=== PATIENT | male | born 1955 | race Caucasian/White ===

== ENCOUNTER → 2022-06-25 09:36 | Outpatient (CLI) | payer MEDICARE, OTHER, SELFPAY ==
[2022-06-25 10:32] LABS: Add Manual Diff / Slide Review NO; Basophils Absolute Auto 0 /uL (0-100); Basophils Percent Auto 0.4 % (0-2); Eosinophils Absolute Auto 0 /uL (0-450); Eosinophils Percent Auto 0.4 % (2-4); Hematocrit 48.7 % (41-53); Hemoglobin 16.6 g/dL (13.5-17.5); Lymphocytes Absolute Auto 1100 /uL (1100-4500); Lymphocytes Percent Auto 9.5 % (25-40); Mean Corpuscular HGB Conc 34.1 % (30-36); Mean Corpuscular Hemoglobin 33.1 PG (26-34); Mean Corpuscular Volume 96.9 fL (80-100); Monocytes Absolute Auto 900 /uL (0-900); Monocytes Percent Auto 8.3 % (3-14); Neutrophils Absolute Auto 9200 /uL (1500-7000); Neutrophils Percent Auto 81.4 % (50-75); Platelet Count 282 X10^3/uL (150-400); Red Blood Cell Count 5.02 X10^6/uL (4.5-5.9); Red Cell Distribution Width 13.9 % (11.6-14.8); White Blood Cell Count 11.2 X10^3/uL (4.5-11.0)
[2022-06-25 10:39] LABS: Alanine Aminotransferase 42 IU/L (<50); Albumin 4.6 g/dL (3.5-5.0); Albumin Globulin Ratio 1.4 (1.0-2.8); Alkaline Phosphatase 91 U/L (38-126); Aspartate Aminotransferase 35 IU/L (17-59); BUN Creatinine Ratio 13.9 (6-22); Bilirubin Total 0.7 mg/dL (0.2-1.3); Blood Urea Nitrogen 11 mg/dL (9-20); Calcium 9.3 mg/dL (8.4-10.2); Carbon Dioxide 22 mmol/L (22-32); Chloride 103 mmol/L (98-107); Cholesterol 218 mg/dL (140-199); Estimated Glomerular Filt Rate > 60 mL/min (>60); Globulin 3.4 g/dL (1.7-4.1); Glucose 104 mg/dL (80-110); HDL Cholesterol 67 mg/dL (40-60); HEMOLYSIS < 15 (0-50); LDL Cholesterol Calculated 122 mg/dL (<100); Potassium 4.1 mmol/L (3.4-5.1); Sodium 136 mmol/L (137-145); Triglycerides 146 mg/dL (35-150)
[2022-06-25 11:22] LABS: TSH w/ Reflex to FT4 1.99 uIU/mL (0.47-4.68)
[2022-06-25 14:35] LABS: Hemoglobin A1C% w Est Avg Glu 5.5 % (4.0-6.0)
== END ==
PROVIDERS: PCP Family Medicine; Referring Provider Family Medicine; Visit Provider Family Medicine
DX: R55 Syncope and collapse (principal)
CPT/HCPCS: 36415; 80053; 80061; 83036; 84443; 85025

== ENCOUNTER → 2022-07-09 09:08 | Outpatient (CLI) | payer MEDICARE, OTHER, SELFPAY ==
--- NOTE | 2022-07-11 15:23 | PM.PFT.1 ---
Pulmonary Function Test Referral & Results Date Patient Seen: 07/09/22 Requesting provider: Lucas Duran Results: The spirometry demonstrates an FVC of 4.3 L which is 91% of predicted. The FEV1 was measured at 3.07 L which is 87% of predicted. The FEV1/FVC ratio was 71 which is 96% of predicted. Following the administration of bronchodilator there was a 31% improvement in FEF 25-75%. Lung volumes show an SVC of 4.65 L which is 97% of predicted. The diffusing capacity was measured at 23.70 which is 70% of predicted. No hemoglobin value was provided, so no correction for potential anemia could be made, if appropriate. The maximum voluntary ventilation was normal Interpretation: This study demonstrates probably normal spirometry. There is however evidence of improvement in small airway flow particularly post bronchodilator and shape a flow volume loop does support the possibility of very mild obstructive lung disease being present There is a mild reduction diffusing capacity suggesting some element of disease at the capillary alveolar level as well Clinical correlation suggested
== END ==
PROVIDERS: PCP Family Medicine; Referring Provider Family Medicine; Visit Provider Family Medicine
DX: R06.00 Dyspnea, unspecified (principal); Z72.0 Tobacco use; J98.8 Other specified respiratory disorders; Z20.822 Contact with and (suspected) exposure to COVID-19
CPT/HCPCS: 87635; 94060; 94726; 94729; C9803

== ENCOUNTER → 2022-07-09 09:08 | Outpatient (CLI) | payer MEDICARE, OTHER, SELFPAY ==
[2022-07-09 09:54] LABS: COVID19 -Nasal RAPID Negative (Negative)
== END ==
PROVIDERS: PCP Family Medicine; Referring Provider Family Medicine; Visit Provider Internal Medicine
DX: Z20.822 Contact with and (suspected) exposure to COVID-19 (principal)
CPT/HCPCS: 87635; C9803

== ENCOUNTER 2022-12-26 22:38 | Inpatient (IN) | payer MEDICARE, OTHER, SELFPAY ==
[2022-12-26] VITALS (9 sets, daily range): BP systolic 115–136; BP diastolic 73–100; PULSE 133–154; RESP 11–18; TEMP 36.6; O2SAT 87–95
--- NOTE | 2022-12-26 22:40 | DI.CT.S_ITS ---
PROCEDURE: CT HEAD/BRAIN WO CON INDICATIONS: ETOH, fall R temporal contusion TECHNIQUE: Noncontrast 4.5 mm thick angled axial sections acquired from the foramen magnum to the vertex, with coronal and sagittal reformats. For radiation dose reduction, the following was used: automated exposure control, adjustment of mA and/or kV according to patient size. COMPARISON: [facility], CT, CT FACIAL BONES WO CON, 12/26/2022, 22:46. FINDINGS: Image quality: Excellent. CSF spaces: Basal cisterns are patent. No extra-axial fluid collections. There is mild cerebral volume loss, with resultant ventricular and sulcal prominence. Brain: No intracranial hemorrhage, mass, or mass effect. There are subcortical, periventricular and deep white matter hypodensities consistent with mild chronic small vessel ischemic changes. The pedersen-white matter junction appears preserved. There is intracranial internal carotid artery atherosclerosis. Skull and face: Calvarium and visualized facial bones are intact, without suspicious lesions. Sinuses: Visualized sinuses and mastoids are clear. IMPRESSION: 1. No acute intracranial abnormality. Dictated by: Freddy Flor M.D. on 12/26/2022 at 23:22 Approved by: Freddy Flor M.D. on 12/26/2022 at 23:23
--- NOTE | 2022-12-26 22:40 | DI.CT.S_ITS ---
PROCEDURE: CT CERVICAL SPINE WO CON INDICATIONS: ETOH and fall TECHNIQUE: Noncontrast 3 mm thick sections acquired from the skull base to the T4 level. Sagittal and coronal reformats were then constructed. For radiation dose reduction, the following was used: automated exposure control, adjustment of mA and/or kV according to patient size. COMPARISON: None. FINDINGS: Image quality: There is mild motion artifact. Bones: No fractures or subluxation. There is straightening of the cervical lordosis. There is multilevel degenerative disc disease and facet joint arthropathy. Visualized superior ribs are intact. Soft tissues: Prevertebral soft tissues are normal in thickness. No paravertebral hematomas. No apical pneumothoraces. IMPRESSION: 1. No fracture or subluxation. Dictated by: Freddy Flor M.D. on 12/26/2022 at 23:23 Approved by: Freddy Flor M.D. on 12/26/2022 at 23:31
--- NOTE | 2022-12-26 22:40 | DI.CT.S_ITS ---
PROCEDURE: CT FACIAL BONES WO CON INDICATIONS: fall with nose bleed TECHNIQUE: Noncontrast 2.5 mm thick axial images acquired from the mandible through the frontal sinuses, with coronal and sagittal reformatting. For radiation dose reduction, the following was used: automated exposure control, adjustment of mA and/or kV according to patient size. COMPARISON: None. FINDINGS: Image quality: Excellent. Bones and teeth: Orbital corral are intact. Sinus corral show no fracture or deformity. Nasal bones and septum are intact. Visualized portions of the mandible demonstrate no fractures or subluxation. Zygomatic arches are intact. Pterygoid plates are intact. Visualized portions of the skull base and auditory canals are intact. Sinuses: Paranasal sinuses are aerated, without fluid levels, mucosal thickening, or mucoceles. Mastoid air cells are aerated. Soft tissues: No edema, masses, or fluid collections. The globes are intact. No enlarged lymph nodes. No soft tissue lacerations or debris. Vascular: Visualized vascular structures appear normal in the absence of contrast. Bony vascular foramina and canals are intact. IMPRESSION: 1. No facial bone fractures identified. Dictated by: Freddy Flor M.D. on 12/26/2022 at 23:31 Approved by: Freddy Flor M.D. on 12/26/2022 at 23:32
--- NOTE | 2022-12-26 22:41 | ED_ITS ---
HPI - General Adult General Chief complaint: Trauma Stated complaint: GLF- unconcious, head injury- etoh- loc Time Seen by Provider: 12/26/22 22:40 Source: family and EMS Mode of arrival: EMS Limitations: altered mental status (Intoxicated) History of Present Illness HPI narrative: Patient is a 67-year-old male who is brought in by EMS for evaluation of injuries that he sustained after an apparent fall at home. This was an unwitnessed fall but he was at home with his . His states that she heard him fall in the bathroom. She went into the bathroom and found him lying on the ground. There was a small amount of blood on the ground. He was bleeding from his nose. He has been drinking alcohol this afternoon. EMS was contacted. EMS reports that he was breathing on his room but was minimally steffany usable. And he was placed in a cervical collar in in round here in the emergency department did respond to some questioning. Here in the ER patient was responsive to stimuli. Reports no specific discomfort however the HPI and review of systems was significant limited secondary to his obvious alcohol intoxication. Related Data Home Medications Medication Instructions Recorded Confirmed fluticasone propionate [Flonase] intranasal 07/17/22 07/17/22 Previous Rx's Medication Instructions Recorded atorvastatin 20 mg tablet (Lipitor) 20 mg PO BEDTIME cholesterol #90 07/17/22 tabs Allergies Allergy/AdvReac Type Severity Reaction Status Date / Time No Known Drug Allergies Allergy Verified 12/26/22 22:48 Review of Systems Review of Systems Narrative: Very limited given the patient's intoxication status. He reports no specific symptoms Patient History Medical History Alcohol use Allergic rhinitis (~1964) Depression (~2019) Grieving Hemorrhoid (~1984) Hepatitis A (~1965) Hyperlipidemia Syncope Tobacco dependence Surgical History Anesthesia History of bunionectomy (~1974) History of rectal surgery (~1984) History of tonsillectomy and adenoidectomy (~1965) Family History Father History of heart disease Mother Alzheimer's dementia Social History Smoking Status: Current every day smoker Smoking Status: Current every day smoker Exam Initial Vital Signs Initial Vital Signs: Vital Signs Temperature 97.9 F 12/26/22 22:38 Pulse Rate 152 H 12/26/22 22:38 Respiratory Rate 18 12/26/22 22:38 Blood Pressure 136/95 H 12/26/22 22:38 Pulse Oximetry 92 12/26/22 22:38 Oxygen Delivery Method Room Air 12/26/22 22:38 Const General: disheveled HENMT Head: contusion (Right temporal region) Chest Chest: No crepitus Resp Effort & Inspection: normal respiratory effort Auscultation: clear to auscultation bilaterally Cardio Rate: tachycardic Rhythm: abnormal rhythm GI Inspection: normal to inspection Palpation: soft and No tender Back/Spine/Pelvis Cervical Spine: collar present Skin Other: Contusion on the right temporal region and also a small contusion on posterior aspect of right shoulder Neuro Other: Patient did respond to verbal stimuli. Extrem Other: No gross deformities. He does move all 4 extremities. His pelvis is stable. Scores GCS Sohail coma scale eye opening: To sound [place] coma scale verbal response: Confused S[place] coma scale motor response: Obey commands Sohail coma scale total score: 13 Course Orders Ordered: ED Orders 12/26/22 22:30 Complete Blood Count AUTO DIFF Stat Comprehensive Metabolic Panel Stat Ethanol (ETOH) Stat Lipase Stat Magnesium Stat PTT Partial Thromboplastin Daniel Stat Prothrombin Time INR Stat Troponin & CK Cardiac Panel Stat 12/26/22 22:40 CT cervical spine wo con Stat CT facial bones wo con Stat CT head/brain wo con Stat 12/26/22 22:41 EKG-12 Lead Stat 12/26/22 22:42 XR chest 1V Stat 12/26/22 23:56 CT angio abd aorta runoff Stat 12/27/22 01:29 Basic Metabolic Panel DAILY 12/27/22 01:32 Free T4, Direct Thyroxine Urgent Thyroid Stimulating Hormone Urgent 12/27/22 01:35 Consult to Dietitian, Adult Routine EC echo doppler complete Urgent 12/27/22 01:37 Education, smoking cessation ONGOING 12/27/22 01:39 NT-proBNP (BNP-Adult 18+) Urgent 12/27/22 01:43 Consult to Occupational Therapy Evaluate & Treat Consult to Physical Therapy Evaluate & Treat Consult to Physician Routine 12/27/22 01:44 MR stroke Stat 12/27/22 02:30 Urine Drug Screen, Rapid Urgent 12/27/22 05:00 Complete Blood Count AUTO DIFF DAILY Ethanol (ETOH) Routine Hemoglobin A1C% w Est Avg Glu Routine Lipid Panel Routine Troponin I Q6H 12/27/22 11:00 Troponin I Q6H 12/28/22 01:29 Basic Metabolic Panel DAILY 12/28/22 05:00 Complete Blood Count AUTO DIFF DAILY 12/29/22 01:29 Basic Metabolic Panel DAILY 12/29/22 05:00 Complete Blood Count AUTO DIFF DAILY Acetaminophen (Acetaminophen 325 Mg Tablet) 650 mg PO Q6H PRN PRN Reason: Fever/Mild Pain (1-3) Apixaban (Apixaban 5 Mg Tablet) 5 mg PO BID [facility] Last Admin: 12/27/22 02:04 Dose: 5 mg Documented By: AP Atorvastatin Calcium (Atorvastatin 20 Mg Tablet) 20 mg PO BEDTIME MULU Folic Acid (Folic Acid 1 Mg Tablet) 1 mg PO DAILY MULU Sodium Chloride (Normal Saline 0.9%) 1,000 mls @ 125 mls/hr IV CONT MULU Last Admin: 12/27/22 00:44 Dose: 125 mls/hr Documented By: AP Sodium Chloride (Normal Saline 0.9%) 1,000 mls @ 125 mls/hr IV CONT MULU Amiodarone HCl/Dextrose (Nexterone) 360 mg in 200 mls @ 33.333 mls/hr IV NOW ONE; Protocol Stop: 12/27/22 09:01 Last Admin: 12/27/22 03:24 Dose: 33.3 mls/hr, 33.3 mls/hr Documented By: AP Multivitamins (Multivitamin 1 Tablet) 1 tab PO DAILY MULU Naloxone HCl (Naloxone 0.4 Mg/Ml Vial) 0.2 mg IV Q2MIN PRN PRN Reason: Opiate Reversal Ondansetron HCl (Ondansetron 4 Mg/2 Ml Inj) 4 mg IV Q6HR PRN PRN Reason: Nausea And Vomiting Last Admin: 12/27/22 02:04 Dose: 4 mg Documented By: AP Thiamine HCl (Thiamine 100 Mg Tablet) 100 mg PO DAILY [facility] Stop: 12/30/22 09:01 Discontinued Medications Diltiazem HCl (Diltiazem 5 Mg/Ml Sdv) 10 mg IV NOW ONE Stop: 12/27/22 00:03 Last Admin: 12/27/22 00:35 Dose: 10 mg Documented By: ANTONIO Sodium Chloride (Normal Saline 0.9%) 1,000 mls @ 1,000 mls/hr IV BOLUS ONE Stop: 12/26/22 23:40 Last Infusion: 12/26/22 23:42 Dose: 0 mls/hr Documented By: Admin: 12/26/22 22:48 Dose: 1,000 mls/hr Documented By: JOHANNA DILTIAZEM (Diltiazem 125 Mg/125 Ml-D5w) 125 mg in 125 mls @ 5 mls/hr IV TITRATE MULU; Protocol Last Titration: 12/27/22 02:53 Dose: 0 mg/hr, 0 mls/hr Documented By: Admin: 12/27/22 00:43 Dose: 5 mg/hr, 5 mls/hr Documented By: ANTONIO Amiodarone HCl/Dextrose (Nexterone) 150 mg in 100 mls @ 600 mls/hr IV NOW ONE Stop: 12/27/22 03:11 Last Infusion: 12/27/22 03:36 Dose: 0 mls/hr Documented By: Admin: 12/27/22 03:08 Dose: 600 mls/hr Documented By: MANJU Metoprolol Tartrate (Metoprolol Tartrate 5 Mg/5 Ml Inj) 10 mg IV NOW ONE Stop: 12/26/22 23:13 Last Admin: 12/26/22 23:21 Dose: 10 mg Documented By: ANTONIO Vital Signs Vital signs: Vital Signs - 8 hr 12/26/22 22:38 12/26/22 22:43 12/26/22 23:00 Temperature 97.9 F Pulse Rate 152 H 153 H 147 H Respiratory Rate 18 17 11 L Blood Pressure 136/95 H 136/95 H Pulse Oximetry 92 92 93 Oxygen Delivery Method Room Air 12/26/22 23:03 12/26/22 23:03 12/26/22 23:15 Temperature Pulse Rate 151 H 154 H Respiratory Rate 14 14 Blood Pressure 134/92 H Pulse Oximetry 94 92 Oxygen Delivery Method 12/26/22 23:15 12/26/22 23:24 12/26/22 23:24 Temperature Pulse Rate 141 H Respiratory Rate 13 Blood Pressure 124/94 H 136/100 H Pulse Oximetry 95 Oxygen Delivery Method 12/26/22 23:30 12/26/22 23:30 12/26/22 23:36 Temperature Pulse Rate 141 H 134 H Respiratory Rate 11 L 15 Blood Pressure 124/81 Pulse Oximetry 92 87 L Oxygen Delivery Method 12/26/22 23:36 12/26/22 23:40 12/26/22 23:40 Temperature Pulse Rate 133 H Respiratory Rate 17 Blood Pressure 118/73 115/91 H Pulse Oximetry 92 Oxygen Delivery Method 12/27/22 00:00 12/27/22 00:01 12/27/22 00:01 Temperature Pulse Rate 140 H 145 H Respiratory Rate 20 22 Blood Pressure 98/50 L Pulse Oximetry 91 92 Oxygen Delivery Method 12/27/22 00:32 12/27/22 00:35 12/27/22 00:35 Temperature Pulse Rate 95 H 139 H Respiratory Rate 13 Blood Pressure 98/60 Pulse Oximetry 91 94 Oxygen Delivery Method 12/27/22 00:49 12/27/22 00:49 12/27/22 00:55 Temperature Pulse Rate 119 H 121 H Respiratory Rate 20 15 Blood Pressure 91/66 Pulse Oximetry 95 96 Oxygen Delivery Method 12/27/22 00:55 12/27/22 01:00 12/27/22 01:00 Temperature Pulse Rate 124 H Respiratory Rate 31 H Blood Pressure 109/74 108/68 Pulse Oximetry Oxygen Delivery Method 12/27/22 01:30 12/27/22 01:30 12/27/22 02:00 Temperature Pulse Rate 129 H Respiratory Rate 19 Blood Pressure 101/57 L 105/57 L Pulse Oximetry 90 L Oxygen Delivery Method 12/27/22 02:00 12/27/22 02:00 12/27/22 02:30 Temperature Pulse Rate 139 H Respiratory Rate 18 Blood Pressure 105/57 L 101/74 Pulse Oximetry 90 L Oxygen Delivery Method 12/27/22 02:30 Temperature Pulse Rate 142 H Respiratory Rate 17 Blood Pressure Pulse Oximetry 92 Oxygen Delivery Method Medical Decision Making Lab Data Lab results reviewed: Yes I reviewed the patient's lab results. 12/26/22 22:30 12/26/22 22:30 Labs: Lab Results 12/26/22 12/26/22 12/26/22 Range/Units 22:30 22:30 22:30 WBC 10.6 (4.5-11.0) X10^3/uL RBC 4.84 (4.5-5.9) X10^6/uL Hgb 15.9 (13.5-17.5) g/dL Hct 46.1 (41-53) % MCV 95.3 (80-100) fL MCH 32.8 (26-34) PG MCHC 34.4 (30-36) % RDW 13.9 (11.6-14.8) % Plt Count 312 (150-400) X10^3/uL Neut % (Auto) 51.0 (50-75) % Lymph % (Auto) 35.5 (25-40) % [place] % (Auto) 10.1 (3-14) % Eos % (Auto) 2.7 (2-4) % Baso % (Auto) 0.7 (0-2) % Neut # (Auto) 5400 (5960-5845) /uL Lymph # (Auto) 3800 (1823-2941) /uL [place] # (Auto) 1100 H (0-900) /uL Eos # (Auto) 300 (0-450) /uL Baso # (Auto) 100 (0-100) /uL PT 11.1 (10.1-12.7) SECONDS INR 1.0 (0.9-1.3) APTT 30 (26-36) SECONDS Sodium 138 (137-145) mmol/L Potassium 4.0 (3.4-5.1) mmol/L Chloride 103 (98-107) mmol/L Carbon Dioxide 24 (22-32) mmol/L BUN 8 L (9-20) mg/dL Creatinine 0.70 (0.66-1.25) mg/dL Estimated GFR > 60 (>60) mL/min BUN/Creatinine Ratio 11.4 (6-22) Glucose 116 H (80-110) mg/dL Calcium 8.5 (8.4-10.2) mg/dL Magnesium (1.6-2.3) mg/dL Total Bilirubin 0.4 (0.2-1.3) mg/dL AST 38 (17-59) IU/L ALT 43 (<50) IU/L Alkaline Phosphatase 85 (38-126) U/L Total Creatine Kinase (55-170) U/L CK-MB (CK-2) CK-MB (CK-2) Rel Index Troponin I (0.01-0.034) ng/mL NT-Pro-B Natriuret Pep (<125) pg/mL Total Protein 7.6 (6.3-8.2) g/dL Albumin 4.5 (3.5-5.0) g/dL Globulin 3.1 (1.7-4.1) g/dL Albumin/Globulin Ratio 1.5 (1.0-2.8) Lipase 71 (23-300) U/L TSH (0.47-4.68) uIU/mL Free T4 (0.78-2.19) ng/dL U Opiates 300ng/mL cut (Negative) Ur Oxycodone Screen (Negative) Urine Methadone Screen (Negative) Ur Barbiturates Screen (Negative) U Tricyclic Antidepress (Negative) Ur Phencyclidine Scrn (Negative) Ur Amphetamines Screen (Negative) U Methamphetamines Scrn (Negative) Ur MDMA Scrn (Ecstasy) (Negative) U Benzodiazepines Scrn (Negative) Urine Cocaine Screen (Negative) U Marijuana (THC) Screen (Negative) Ethyl Alcohol 243 H ( - 10) mg/dL 12/26/22 12/26/22 12/26/22 Range/Units 22:30 22:30 22:30 WBC (4.5-11.0) X10^3/uL RBC (4.5-5.9) X10^6/uL Hgb (13.5-17.5) g/dL Hct (41-53) % MCV (80-100) fL MCH (26-34) PG MCHC (30-36) % RDW (11.6-14.8) % Plt Count (150-400) X10^3/uL Neut % (Auto) (50-75) % Lymph % (Auto) (25-40) % [place] % (Auto) (3-14) % Eos % (Auto) (2-4) % Baso % (Auto) (0-2) % Neut # (Auto) (4784-5827) /uL Lymph # (Auto) (7961-0604) /uL [place] # (Auto) (0-900) /uL Eos # (Auto) (0-450) /uL Baso # (Auto) (0-100) /uL PT (10.1-12.7) SECONDS INR (0.9-1.3) APTT (26-36) SECONDS Sodium (137-145) mmol/L Potassium (3.4-5.1) mmol/L Chloride (98-107) mmol/L Carbon Dioxide (22-32) mmol/L BUN (9-20) mg/dL Creatinine (0.66-1.25) mg/dL Estimated GFR (>60) mL/min BUN/Creatinine Ratio (6-22) Glucose (80-110) mg/dL Calcium (8.4-10.2) mg/dL Magnesium 2.3 (1.6-2.3) mg/dL Total Bilirubin (0.2-1.3) mg/dL AST (17-59) IU/L ALT (<50) IU/L Alkaline Phosphatase (38-126) U/L Total Creatine Kinase 153 (55-170) U/L CK-MB (CK-2) TNP CK-MB (CK-2) Rel Index TNP Troponin I < 0.012 (0.01-0.034) ng/mL NT-Pro-B Natriuret Pep 24 (<125) pg/mL Total Protein (6.3-8.2) g/dL Albumin (3.5-5.0) g/dL Globulin (1.7-4.1) g/dL Albumin/Globulin Ratio (1.0-2.8) Lipase (23-300) U/L TSH 2.98 (0.47-4.68) uIU/mL Free T4 1.34 (0.78-2.19) ng/dL U Opiates 300ng/mL cut (Negative) Ur Oxycodone Screen (Negative) Urine Methadone Screen (Negative) Ur Barbiturates Screen (Negative) U Tricyclic Antidepress (Negative) Ur Phencyclidine Scrn (Negative) Ur Amphetamines Screen (Negative) U Methamphetamines Scrn (Negative) Ur MDMA Scrn (Ecstasy) (Negative) U Benzodiazepines Scrn (Negative) Urine Cocaine Screen (Negative) U Marijuana (THC) Screen (Negative) Ethyl Alcohol ( - 10) mg/dL 12/27/22 Range/Units 02:30 WBC (4.5-11.0) X10^3/uL RBC (4.5-5.9) X10^6/uL Hgb (13.5-17.5) g/dL Hct (41-53) % MCV (80-100) fL MCH (26-34) PG MCHC (30-36) % RDW (11.6-14.8) % Plt Count (150-400) X10^3/uL Neut % (Auto) (50-75) % Lymph % (Auto) (25-40) % [place] % (Auto) (3-14) % Eos % (Auto) (2-4) % Baso % (Auto) (0-2) % Neut # (Auto) (6199-5800) /uL Lymph # (Auto) (1625-0189) /uL [place] # (Auto) (0-900) /uL Eos # (Auto) (0-450) /uL Baso # (Auto) (0-100) /uL PT (10.1-12.7) SECONDS INR (0.9-1.3) APTT (26-36) SECONDS Sodium (137-145) mmol/L Potassium (3.4-5.1) mmol/L Chloride (98-107) mmol/L Carbon Dioxide (22-32) mmol/L BUN (9-20) mg/dL Creatinine (0.66-1.25) mg/dL Estimated GFR (>60) mL/min BUN/Creatinine Ratio (6-22) Glucose (80-110) mg/dL Calcium (8.4-10.2) mg/dL Magnesium (1.6-2.3) mg/dL Total Bilirubin (0.2-1.3) mg/dL AST (17-59) IU/L ALT (<50) IU/L Alkaline Phosphatase (38-126) U/L Total Creatine Kinase (55-170) U/L CK-MB (CK-2) CK-MB (CK-2) Rel Index Troponin I (0.01-0.034) ng/mL NT-Pro-B Natriuret Pep (<125) pg/mL Total Protein (6.3-8.2) g/dL Albumin (3.5-5.0) g/dL Globulin (1.7-4.1) g/dL Albumin/Globulin Ratio (1.0-2.8) Lipase (23-300) U/L TSH (0.47-4.68) uIU/mL Free T4 (0.78-2.19) ng/dL U Opiates 300ng/mL cut Negative (Negative) Ur Oxycodone Screen Negative (Negative) Urine Methadone Screen Negative (Negative) Ur Barbiturates Screen Negative (Negative) U Tricyclic Antidepress Negative (Negative) Ur Phencyclidine Scrn Negative (Negative) Ur Amphetamines Screen Negative (Negative) U Methamphetamines Scrn Negative (Negative) Ur MDMA Scrn (Ecstasy) Negative (Negative) U Benzodiazepines Scrn Negative (Negative) Urine Cocaine Screen Negative (Negative) U Marijuana (THC) Screen Positive H (Negative) Ethyl Alcohol ( - 10) mg/dL Imaging Data CT - cervical spine: Radiologist's Impression: PROCEDURE:? CT CERVICAL SPINE WO CON ? INDICATIONS:? ETOH and fall ? TECHNIQUE:? Noncontrast 3 mm thick sections acquired from the skull base to the T4 level.? Sagittal and coronal reformats were then constructed.? For radiation dose reduction, the following was used:? automated exposure control, adjustment of mA and/or kV according to patient size.? ? COMPARISON:? None. ? FINDINGS:? Image quality:? There is mild motion artifact.? ? Bones:? No fractures or subluxation.? There is straightening of the cervical lordosis.? There is multilevel degenerative disc disease and facet joint arthropathy.? Visualized superior ribs are intact.? ? Soft tissues:? Prevertebral soft tissues are normal in thickness.? No paravertebral hematomas.? No apical pneumothoraces.? ? ? IMPRESSION:? ? 1.? No fracture or subluxation. Face CT: Radiologist's Impression: PROCEDURE:? CT FACIAL BONES WO CON ? INDICATIONS:? fall with nose bleed ? TECHNIQUE:? Noncontrast 2.5 mm thick axial images acquired from the mandible through the frontal sinuses, with coronal and sagittal reformatting.? For radiation dose reduction, the following was used:? automated exposure control, adjustment of mA and/or kV according to patient size.? ? COMPARISON:? None. ? FINDINGS:? Image quality:? Excellent.? ? Bones and teeth:? Orbital corral are intact.? Sinus corral show no fracture or deformity.? Nasal bones and septum are intact.? Visualized portions of the mandible demonstrate no fractures or subluxation.? Zygomatic arches are intact.? Pterygoid plates are intact.? Visualized portions of the skull base and auditory canals are intact.? ? Sinuses:? Paranasal sinuses are aerated, without fluid levels, mucosal thickening, or mucoceles.? Mastoid air cells are aerated.? ? Soft tissues:? No edema, masses, or fluid collections.? The globes are intact.? No enlarged lymph nodes.? No soft tissue lacerations or debris.? ? Vascular:? Visualized vascular structures appear normal in the absence of contrast.? Bony vascular foramina and canals are intact.? ? IMPRESSION:? ? 1. No facial bone fractures identified.? CT scan - head: Radiologist's Impression: PROCEDURE:? CT HEAD/BRAIN WO CON ? INDICATIONS:? ETOH, fall R temporal contusion ? TECHNIQUE:? Noncontrast 4.5 mm thick angled axial sections acquired from the foramen magnum to the vertex, with coronal and sagittal reformats.? For radiation dose reduction, the following was used:? automated exposure control, adjustment of mA and/or kV according to patient size.? ? COMPARISON:? [facility], CT, CT FACIAL BONES WO CON, 12/26/2022, 22:46. ? FINDINGS:? Image quality:? Excellent.? ? CSF spaces:? Basal cisterns are patent.? No extra-axial fluid collections.? There is mild cerebral volume loss, with resultant ventricular and sulcal prominence.? ? Brain:? No intracranial hemorrhage, mass, or mass effect.? There are subcortical, periventricular and deep white matter hypodensities consistent with mild chronic small vessel ischemic changes.? The pedersen-white matter junction appears preserved.? There is intracranial internal carotid artery atherosclerosis.? ? Skull and face:? Calvarium and visualized facial bones are intact, without suspicious lesions.? ? Sinuses:? Visualized sinuses and mastoids are clear.? ? IMPRESSION:? ? 1. No acute intracranial abnormality.? Chest x-ray: Radiologist's Impression: PROCEDURE:? XR CHEST 1V ? INDICATIONS:? a fib ? TECHNIQUE:? One view of the chest was acquired.? ? COMPARISON:? [facility], CT, CT CERVICAL SPINE WO CON, 12/26/2022, 22:46 ? FINDINGS:? ? Surgical changes and devices:? None.? ? Lungs and pleura:? There is mild pulmonary edema.? No pleural effusions or pneumothorax.? ? ? Mediastinum:? Mediastinal contours appear slightly widened.? Heart size is normal.? ? Bones and chest wall:? No suspicious bony lesions.? Overlying soft tissues appear unremarkable.? ? IMPRESSION:? ? 1. Mild pulmonary edema. ? 2. Widening of the mediastinal contours is nonspecific and may reflect mediastinal fat and vascular structures.? Recommend a dedicated PA and lateral study when clinically feasible for further evaluation. CTA: Radiologist's Impression: PROCEDURE:? CT ANGIO ABD AORTA RUNOFF ? INDICATIONS:? eval for aortic pathology ? TECHNIQUE:? After the administration of intravenous contrast, 2.5 mm sections acquired from T12 to the ankles, with optional delayed image acquisition from the knees to the ankles.? 3-dimensional maximum intensity projection (MIP) coronal and sagittal reformats, and/or 3-dimensional volume rendering reformatting was then performed.? For radiation dose reduction, the following was used:? automated exposure control.? ? COMPARISON:? None. ? FINDINGS:? Image quality:? Excellent.? ? Abdominal aorta:? The visualized aorta is patent.? There is a saccular aneurysm of the infrarenal abdominal aorta measuring up to 4.0 cm in transverse dimension with eccentric left-sided mural thrombus.? The celiac, superior mesenteric, and inferior mesenteric arteries appear patent.? There are single renal arteries bilaterally which appear patent. ? Right lower extremity:? Common iliac artery:? Patent. External iliac artery:? Patent. Internal iliac artery: Patent. Common femoral artery: Patent. Deep femoral artery: Patent. Superficial femoral artery: Patent. Popliteal artery: Patent. Anterior tibial artery:? Patent. Tibioperoneal trunk: Patent. Posterior tibial artery: Patent along its course with decreased enhancement distally at the level of the ankle. Peroneal artery: Patent to the level of the ankle. ? Left lower extremity:? Common iliac artery:? Patent. External iliac artery:? Patent. Internal iliac artery: Patent. Common femoral artery: Patent. Deep femoral artery: Patent. Superficial femoral artery: Patent. Popliteal artery: Patent. Anterior tibial artery:? Patent. Tibioperoneal trunk: Patent. Posterior tibial artery: Patent. Peroneal artery: Patent to the level of the ankle. ? Extravascular tissues:? Lung bases:? There is mild dependent atelectasis.? ? Heart:? Heart is normal in size. ABDOMEN: Liver:? There is heterogeneous enhancement of the liver with relative hypoenhancement centrally.? No discrete hepatic mass. Gallbladder:? Within normal limits without calcified gallstones.? ? Biliary ducts:? No biliary ductal dilatation.? ? Pancreas:? Unremarkable.? ? Spleen:? Normal in size.? ? Adrenal Glands:? No adrenal nodules.? ? Kidneys and Ureters:? No hydronephrosis.? ? Stomach and Bowel:? Stomach, small bowel loops, and colon are normal in caliber and wall thickness.? The appendix is normal.? There is colonic diverticulosis without acu te diverticulitis. Peritoneum:? No abnormal intraperitoneal fluid.? No free air.? ? Ventral Wall: ? No hernia.? Abdominal Nodes:? No retroperitoneal or mesenteric adenopathy by size criteria.? Vessels:? Aorta and inferior vena cava are normal in size.? PELVIS: Pelvic Organs:? Unremarkable.? ? Bladder:? Unremarkable.? ? Pelvic Nodes: No enlarged lymph nodes.? Miscellaneous: No inguinal hernias are seen. ? ? LOWER EXTREMITIES: Soft tissues:? There is a small right knee joint effusion. ? Bones:? Visualized osseous structures demonstrate no suspicious focal lesions. ? IMPRESSION:? ? 1. 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 ? 2. No evidence of aortic dissection or definite acute aortic injury. ? 3. Scattered atherosclerotic plaque along the lower extremity arteries without high-grade stenosis or occlusion.? ? 4. Mild decreased enhancement demonstrated in the distal right posterior tibial artery at the level of the ankle without definite focal stenosis visualized. ECG Data Interpretation: Atrial fibrillation Ventricular rate of 149 Normal axis Normal QRS Normal QTC Nonspecific ST T wave MDM Narrative Medical decision making narrative: Contusion on the right side of his head and on his right shoulder no specific intervention here in the emergency department. CT scans and x-rays here in the emergency department are unremarkable. The CTA was ordered because of the findings from the chest x-ray of the wide mediastinum and given his fall and also his atrial fibrillation this was ordered to evaluate for aortic pathology. He does have an infrarenal aortic aneurysm but there is no signs of rupture. He is not having any abdominal pain. Patient is in AFib with RVR. According to his who is at bedside this is a new diagnoses. Unsure how long he has been in atrial fibrillation. Unsure if this was why he passed out earlier today. He was given metoprolol which potentially helped his symptoms only a small amount. He was then started on a Cardizem drip. I did discuss the case with LANA Tolbert in the night hospitalist patient does require admission to the hospital for rate control. I discussed the need for admission with the patient's who expressed understanding agreement. Patient is intoxicated. No signs of alcohol withdrawal. We will admit for further evaluation and treatment. Discharge Plan Departure Patient Disposition: Admitted As Inpatient Clinical Impression: Atrial fibrillation with RVR, Alcohol intoxication, Contusion of scalp, Contusion of right shoulder, Fall Admit Date/Time: 12/27/22 02:30 Admit Provider: Carolina Tolbert
--- NOTE | 2022-12-26 22:42 | DI.RAD.S_ITS ---
PROCEDURE: XR CHEST 1V INDICATIONS: a fib TECHNIQUE: One view of the chest was acquired. COMPARISON: [facility], CT, CT CERVICAL SPINE WO CON, 12/26/2022, 22:46 FINDINGS: Surgical changes and devices: None. Lungs and pleura: There is mild pulmonary edema. No pleural effusions or pneumothorax. Mediastinum: Mediastinal contours appear slightly widened. Heart size is normal. Bones and chest wall: No suspicious bony lesions. Overlying soft tissues appear unremarkable. IMPRESSION: 1. Mild pulmonary edema. 2. Widening of the mediastinal contours is nonspecific and may reflect mediastinal fat and vascular structures. Recommend a dedicated PA and lateral study when clinically feasible for further evaluation. Dictated by: Freddy Flor M.D. on 12/26/2022 at 23:44 Approved by: Freddy Flor M.D. on 12/26/2022 at 23:46
[2022-12-26] MEDS: SODIUM CHLORIDE 0.9% 1,000 ML 1000 ML IV (22:48)
[2022-12-26 22:49] LABS: Add Manual Diff / Slide Review NO; Basophils Absolute Auto 100 /uL (0-100); Basophils Percent Auto 0.7 % (0-2); Eosinophils Absolute Auto 300 /uL (0-450); Eosinophils Percent Auto 2.7 % (2-4); Hematocrit 46.1 % (41-53); Hemoglobin 15.9 g/dL (13.5-17.5); Lymphocytes Absolute Auto 3800 /uL (1100-4500); Lymphocytes Percent Auto 35.5 % (25-40); Mean Corpuscular HGB Conc 34.4 % (30-36); Mean Corpuscular Hemoglobin 32.8 PG (26-34); Mean Corpuscular Volume 95.3 fL (80-100); Monocytes Absolute Auto 1100 /uL (0-900); Monocytes Percent Auto 10.1 % (3-14); Neutrophils Absolute Auto 5400 /uL (1500-7000); Platelet Count 312 X10^3/uL (150-400); Red Blood Cell Count 4.84 X10^6/uL (4.5-5.9); Red Cell Distribution Width 13.9 % (11.6-14.8); White Blood Cell Count 10.6 X10^3/uL (4.5-11.0)
[2022-12-26 22:54] LABS: Prothrombin Time 11.1 SECONDS (10.1-12.7)
[2022-12-26 22:56] LABS: PTT Partial Thromboplastin Tim 30 SECONDS (26-36)
[2022-12-26 22:57] LABS: Alanine Aminotransferase 43 IU/L (<50); Albumin 4.5 g/dL (3.5-5.0); Albumin Globulin Ratio 1.5 (1.0-2.8); Alkaline Phosphatase 85 U/L (38-126); Aspartate Aminotransferase 38 IU/L (17-59); BUN Creatinine Ratio 11.4 (6-22); Bilirubin Total 0.4 mg/dL (0.2-1.3); Blood Urea Nitrogen 8 mg/dL (9-20); Calcium 8.5 mg/dL (8.4-10.2); Carbon Dioxide 24 mmol/L (22-32); Chloride 103 mmol/L (98-107); Estimated Glomerular Filt Rate > 60 mL/min (>60); Globulin 3.1 g/dL (1.7-4.1); Glucose 116 mg/dL (80-110); HEMOLYSIS < 15 (0-50); Lipase 71 U/L (23-300); Sodium 138 mmol/L (137-145); Total Protein 7.6 g/dL (6.3-8.2)
[2022-12-26 22:58] LABS: Creatine Kinase 153 U/L (55-170); Magnesium 2.3 mg/dL (1.6-2.3)
[2022-12-26 23:09] LABS: Troponin I < 0.012 ng/mL (0.01-0.034)
[2022-12-26 23:14] LABS: Ethanol (ETOH) 243 mg/dL
[2022-12-26] MEDS: METOPROLOL TARTRATE 5 MG/5 ML INJ 10 MG IV (23:21)
--- NOTE | 2022-12-26 23:39 | PC.NURSE ---
c spine cleared by DR Kaufman and cervical immobilizer removed.
--- NOTE | 2022-12-26 23:56 | DI.CT.S_ITS ---
PROCEDURE: CT ANGIO ABD AORTA RUNOFF INDICATIONS: eval for aortic pathology TECHNIQUE: After the administration of intravenous contrast, 2.5 mm sections acquired from T12 to the ankles, with optional delayed image acquisition from the knees to the ankles. 3-dimensional maximum intensity projection (MIP) coronal and sagittal reformats, and/or 3-dimensional volume rendering reformatting was then performed. For radiation dose reduction, the following was used: automated exposure control. COMPARISON: None. FINDINGS: Image quality: Excellent. Abdominal aorta: The visualized aorta is patent. There is a saccular aneurysm of the infrarenal abdominal aorta measuring up to 4.0 cm in transverse dimension with eccentric left-sided mural thrombus. The celiac, superior mesenteric, and inferior mesenteric arteries appear patent. There are single renal arteries bilaterally which appear patent. Right lower extremity: Common iliac artery: Patent. External iliac artery: Patent. Internal iliac artery: Patent. Common femoral artery: Patent. Deep femoral artery: Patent. Superficial femoral artery: Patent. Popliteal artery: Patent. Anterior tibial artery: Patent. Tibioperoneal trunk: Patent. Posterior tibial artery: Patent along its course with decreased enhancement distally at the level of the ankle. Peroneal artery: Patent to the level of the ankle. Left lower extremity: Common iliac artery: Patent. External iliac artery: Patent. Internal iliac artery: Patent. Common femoral artery: Patent. Deep femoral artery: Patent. Superficial femoral artery: Patent. Popliteal artery: Patent. Anterior tibial artery: Patent. Tibioperoneal trunk: Patent. Posterior tibial artery: Patent. Peroneal artery: Patent to the level of the ankle. Extravascular tissues: Lung bases: There is mild dependent atelectasis. Heart: Heart is normal in size. ABDOMEN: Liver: There is heterogeneous enhancement of the liver with relative hypoenhancement centrally. No discrete hepatic mass. Gallbladder: Within normal limits without calcified gallstones. Biliary ducts: No biliary ductal dilatation. Pancreas: Unremarkable. Spleen: Normal in size. Adrenal Glands: No adrenal nodules. Kidneys and Ureters: No hydronephrosis. Stomach and Bowel: Stomach, small bowel loops, and colon are normal in caliber and wall thickness. The appendix is normal. There is colonic diverticulosis without acute diverticulitis. Peritoneum: No abnormal intraperitoneal fluid. No free air. Ventral Wall: No hernia. Abdominal Nodes: No retroperitoneal or mesenteric adenopathy by size criteria. Vessels: Aorta and inferior vena cava are normal in size. PELVIS: Pelvic Organs: Unremarkable. Bladder: Unremarkable. Pelvic Nodes: No enlarged lymph nodes. Miscellaneous: No inguinal hernias are seen. LOWER EXTREMITIES: Soft tissues: There is a small right knee joint effusion. Bones: Visualized osseous structures demonstrate no suspicious focal lesions. IMPRESSION: 1. 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 2. No evidence of aortic dissection or definite acute aortic injury. 3. Scattered atherosclerotic plaque along the lower extremity arteries without high-grade stenosis or occlusion. 4. Mild decreased enhancement demonstrated in the distal right posterior tibial artery at the level of the ankle without definite focal stenosis visualized. Dictated by: Freddy Flor M.D. on 12/27/2022 at 1:08 Approved by: Freddy Flor M.D. on 12/27/2022 at 1:15
[2022-12-27] VITALS (37 sets, daily range): BP systolic 91–167; BP diastolic 50–91; PULSE 61–150; RESP 13–31; TEMP 36.6–37.3; O2SAT 90–96; BMI 27.3
[2022-12-27] MEDS: dilTIAZem 5 MG/ML SDV 10 MG IV (00:35)
[2022-12-27] MEDS: DILTIAZEM 125 MG/125 ML PIGGYBACK IV ×2 (00:43→05:45)
[2022-12-27] MEDS: SODIUM CHLORIDE 0.9% 1,000 ML 125 ML IV (00:44)
--- NOTE | 2022-12-27 00:57 | PC.NURSE ---
His took his pants,jacket and wallet home.His cell phone and glasses are with him.
--- NOTE | 2022-12-27 01:35 | DI.ECHO.S_ITS ---
[facility]---------+ [facility] +---------+ : : [address] : : : : [id number] : : : : Phone: [phone]+ Echocardiogram Report + + :Name: MAXIM MCINTYRE Study Date: 12/27/2022 Height: 72 in : :[facility] ReadingLocation: Weight: 202 lb : : Gender: Male BSA: 2.1 m2 : :: 1955 Age: 67 yrs BP: 107/60 mmHg: :Reason For Study: ATRIAL FIBRILLATION : :Ordering Physician: KING, : :LIZA Performed By: Eduarda Quintero : :Referring: LIZA MALIK : + + Interpretation Summary The ejection fraction is estimated to be 60-65%. Diastolic parameters suggest probable normal left ventricular diastolic function and normal filling pressures. The right ventricle is normal in size and function. The right ventricular systolic pressure is estimated to be at least 24 mmHg based on an estimated right atrial pressure of 3 mm Hg. The left atrial size is normal. Right atrial size is normal. No significant valvular abnormality. Procedure: A two-dimensional transthoracic echocardiogram with color flow and Doppler was performed. The study quality was technically adequate. There is no prior echocardiogram noted for this patient. The heart rate ranged between 56-82 bpm during the study. Left Ventricle: The left ventricle is normal in size and wall thickness. The ejection fraction is estimated to be 60-65%. There are no obvious focal wall motion abnormalities noted but poor endocardial definition reduces the sensitivity for the detection of such. Diastolic parameters suggest probable normal left ventricular diastolic function and normal filling pressures. Right Ventricle: The right ventricle is normal in size and function. Atria: The left atrial size is normal. Right atrial size is normal. There is no Doppler evidence for an interatrial shunt. Mitral Valve: The mitral valve is normal in structure and function. There is mild mitral regurgitation. Aortic Valve: The aortic valve is trileaflet. The aortic valve opens well. There is no aortic valve stenosis. No aortic regurgitation is present. Tricuspid Valve: The tricuspid valve is normal in structure and function. There is mild tricuspid regurgitation. The right ventricular systolic pressure is estimated to be at least 24 mmHg based on an estimated right atrial pressure of 3 mm Hg. Pulmonic Valve: The pulmonic valve is not well seen, but is grossly normal. There is a trace or physiologic amount of pulmonic regurgitation. Great Vessels: The aortic root is normal size. The dimensions of the ascending aorta are normal. The IVC is of normal diameter and collapses greater than 50% with a sniff. This suggests a low right atrial pressure of 3 mm Hg. Pericardium/ Pleura There is no pericardial effusion. There is no pleural effusion. MMode/2D Measurements & Calculations LVIDd: 5.2 cm LVOT diam: 2.2 cm LVIDs: 3.5 cm Ao root diam: 3.4 cm FS: 33.3 % asc Aorta Diam: 3.8 cm EPSS: 0.85 cm Ao Arch Diam (Prox Trans): 4.0 cm IVSd: 1.0 cm LVPWd: 0.74 cm LV aleman. diameter/BSA (cm/m^2): 2.4 LV sys. diameter/BSA (cm/m^2): 1.6 LA A2 area: 18.3 cm2 RA long axis: 5.7 cm LA A4 area: 15.0 cm2 RA area: 18.4 cm2 LA length (vol): 5.0 cm RA vol: 50.2 ml LA vol: 46.3 ml RA : 23.5 ml/m2 LA vol index: 21.6 ml/m2 IVC diam: 1.3 cm RVD1 (basal): 3.4 cm RVD2 (mid): 3.2 cm TAPSE: 2.2 cm Doppler Measurements & Calculations Ao V2 max: 149.4 cm/sec LVOT Max Chacorta: 102.4 cm/sec Ao V2 mean: 104.5 cm/sec LV V1 max P.2 mmHg Ao max P.9 mmHg LV V1 VTI: 19.6 cm Ao mean P.9 mmHg JAMES(I,D): 2.7 cm2 Ao V2 VTI: 27.5 cm JAMES(V,D): 2.6 cm2 sev ratio: 0.71 JAMES indexed to BSA (cm^2/m^2): 1.2 MV E max chacorta: 59.8 cm/sec TR max chacorta: 228.8 cm/sec MV A max chacorta: 66.2 cm/sec TR max P.9 mmHg MV E/A: 0.90 PA V2 max: 108.0 cm/sec Med Peak E' Chacorta: 6.2 cm/sec PA V2 mean: 70.4 cm/sec E/E' med: 9.6 PA mean P.2 mmHg Lat Peak E' Chacorta: 8.1 cm/sec PA pr(Accel): 20.8 mmHg E/E' lat: 7.4 E/e' average: 8.5 MV dec time: 0.28 sec [facility] 73.4 ml Reading Physician:KENA
--- NOTE | 2022-12-27 01:44 | DI.MRI.S_ITS ---
PROCEDURE: MR STROKE Pre- and post-contrast brain MRI, non-contrast brain MR angiogram, pre- and postcontrast neck MR angiogram INDICATIONS: VTH-AZE-Ypbc injury TECHNIQUE: Brain: Noncontrast axial T1 spin echo, axial T2 fast spin echo, sagittal and axial FLAIR, coronal T2 fast spin echo, axial gradient echo, axial diffusion and ADC through the brain. After the administration of contrast, axial 3D VIBE of the cranial vasculature and brain. Brain MRA: Non-contrast 3-D time of flight MR angiogram, with multiple uxservh-xphyudgtz-owizdvwmib (MIP) reformats performed. Neck MRA: Axial and sagittal TruFISP through the neck. Coronal dynamic MR angiogram during administration of contrast in the arterial and venous phases, with 3-dimenstional kmfkwir-expqjbeli-mrtyrozgkd (MIP) reformats constructed from subtraction images. COMPARISON: [facility], CT, CT HEAD/BRAIN WO CON, 12/26/2022, 22:46. FINDINGS: Image quality: Excellent. BRAIN: CSF spaces: Ventricles are normal in size and shape. Basal cisterns are patent. No extra-axial fluid collections. Brain: No intracranial bleeds or mass effects. Martinez-white matter interface is normal. Diffusion weighted images show no acute ischemic insults. There is focal left temporal contusion with affected parenchyma measuring approximately 3.5 x 2.4 cm on axial FLAIR image 8 of series 16. There is minimal associated extra-axial hemorrhage, likely in the subarachnoid in may be also a thin rim of subdural hemorrhage, as well. There is associated edema in this area. Age-related volume loss and mild small vessel ischemic change. Normal intravascular flow voids are present. No abnormal intracranial enhancement. Skull and face: Calvarial marrow signal is normal. Orbits appear normal. Sinuses: Sinuses and mastoids are clear. BRAIN MR ANGIOGRAM: Anterior circulation: Intracranial internal carotid arteries are normal in size and enhancement. The flow within the paired anterior cerebral arteries is normal and symmetric. The flow within the middle cerebral arteries is normal and symmetric. The anterior communicating artery is seen. No stenoses, occlusions, or aneurysms. Posterior circulation: The distal right vertebral artery is diminutive. The distal left vertebral artery is widely patent. They join to form a normal caliber basilar artery. The flow within the posterior cerebral arteries is normal and symmetric. No stenoses, occlusions, or aneurysms. NECK MR ANGIOGRAM: Carotids: Great vessels demonstrate a conventional anatomy as they arise from the aortic arch. The origins of the common carotid arteries appear patent. The calibers and courses of both common carotid arteries are normal. The bifurcation regions appear normal bilaterally. The internal carotid arteries demonstrate normal course and caliber. Posterior circulation: The right vertebral artery is diffusely diminutive, normal variant. The left vertebral artery is widely patent and is dominant. They join to form a normal appearing basilar artery. Miscellaneous: Subclavian arteries appear patent. Pre-contrast images through the neck show no soft tissue abnormalities. IMPRESSION: BRAIN MRI: 1. Focal left temporal contusion with associated subarachnoid blood and probable very minimal subdural hematoma. 2. No evidence of acute ischemic stroke. Age-related volume loss and mild small vessel ischemic change. BRAIN MR ANGIOGRAM: Unremarkable NECK MR ANGIOGRAM: Patent carotids. Dictated by: Robb Ashley M.D. on 12/27/2022 at 11:03 Approved by: Robb Ashley M.D. on 12/27/2022 at 11:20
--- NOTE | 2022-12-27 01:48 | P.HP_ITS ---
History of Present Illness History of Present Illness Date Patient Seen: 12/27/22 Time Patient Seen: 01:48 Chief complaint: Afib RVR, GLF-LOC, ETOH Narrative: Ibrahima Solorzano is a 67-year-old male with a medical history of alcohol abuse, hyperlipidemia, tobacco abuse who had a ground level fall, with head injury at home was found by his unconscious, EMS was called patient initially found unarousable, patient was intoxicated in atrial fibrillation. In ED patient was arousable was able to answer some questions denies history of atrial fibrillation. Patient ETOH of 243, and in AFib with RVR rate 130-150, initially hemodynamically stable BP 136/95, 115/91. Patient was initially given metoprolol push without resolution, Dilt and was placed on diltiazem drip. On admit patient denies chest pain, shortness in breath, headache, changes in vision, difficulty swallowing, speech impairment, weakness, numbness, tingling, difficulty with ambulation, fever, body aches, chills, cough, recent exposure to illness, abdominal pain, nausea, vomiting, urinary incontinence/retention, dysuria, frequency, urgency, hematuria, bowel changes, constipation, incontinence, melena, rashes, recent changes to medication or illness. On admit hypotensive 98/50, 90/60, patient is somnolent, arousable, able to answer questions some questions but a lot of mumbling still significantly intoxicated, protecting airway but O2 saturations do drop into the 80s when he falls back asleep. Patient's CBC, CMP, liver panel, troponin are all WNL. ETOH 243. Chest x-ray mild pulmonary edema, widening midsternal contours. Head CT negative, facial CT negative, C-spine negative, chest CT showed 4 cm abdominal aneurysm. Patient admitted for ground level fall with head injury and loss of consciousness, atrial fibrillation with RVR, ETOH intoxication, and abdominal aneurysm. [facility] Medical History Alcohol use Allergic rhinitis (~1964) Depression (~2019) Grieving Hemorrhoid (~1984) Hepatitis A (~1965) Hyperlipidemia Syncope Tobacco dependence Surgical History Anesthesia History of bunionectomy (~1974) History of rectal surgery (~1984) History of tonsillectomy and adenoidectomy (~1965) Family History Father History of heart disease Mother Alzheimer's dementia Social History Smoking Status: Current every day smoker Meds Home Medications and Allergies Home Medications Medication Instructions Recorded Confirmed Type atorvastatin 20 mg tablet (Lipitor) 20 mg PO BEDTIME cholesterol #90 07/17/22 07/17/22 Rx tabs fluticasone propionate [Flonase] intranasal 07/17/22 07/17/22 History Allergies Allergy/AdvReac Type Severity Reaction Status Date / Time No Known Drug Allergies Allergy Verified 12/26/22 22:48 Review of Systems Review of Systems Narrative: All 12 point systems reviewed with the patient and are negative except otherwise documented. Exam Vital Signs (past 8 hours): - 12/26/22 22:38 12/26/22 22:43 12/26/22 23:00 Temperature 97.9 F Pulse Rate 152 H 153 H 147 H Respiratory Rate 18 17 11 L Blood Pressure 136/95 H 136/95 H Pulse Oximetry 92 92 93 Oxygen Delivery Method Room Air 12/26/22 23:03 12/26/22 23:03 12/26/22 23:15 Temperature Pulse Rate 151 H 154 H Respiratory Rate 14 14 Blood Pressure 134/92 H Pulse Oximetry 94 92 Oxygen Delivery Method 12/26/22 23:15 12/26/22 23:24 12/26/22 23:24 Temperature Pulse Rate 141 H Respiratory Rate 13 Blood Pressure 124/94 H 136/100 H Pulse Oximetry 95 Oxygen Delivery Method 12/26/22 23:30 12/26/22 23:30 12/26/22 23:36 Temperature Pulse Rate 141 H 134 H Respiratory Rate 11 L 15 Blood Pressure 124/81 Pulse Oximetry 92 87 L Oxygen Delivery Method 12/26/22 23:36 12/26/22 23:40 12/26/22 23:40 Temperature Pulse Rate 133 H Respiratory Rate 17 Blood Pressure 118/73 115/91 H Pulse Oximetry 92 Oxygen Delivery Method 12/27/22 00:00 12/27/22 00:01 12/27/22 00:01 Temperature Pulse Rate 140 H 145 H Respiratory Rate 20 22 Blood Pressure 98/50 L Pulse Oximetry 91 92 Oxygen Delivery Method 12/27/22 00:32 12/27/22 00:35 12/27/22 00:35 Temperature Pulse Rate 95 H 139 H Respiratory Rate 13 Blood Pressure 98/60 Pulse Oximetry 91 94 Oxygen Delivery Method 12/27/22 00:49 12/27/22 00:49 12/27/22 00:55 Temperature Pulse Rate 119 H 121 H Respiratory Rate 20 15 Blood Pressure 91/66 Pulse Oximetry 95 96 Oxygen Delivery Method 12/27/22 00:55 12/27/22 01:00 12/27/22 01:00 Temperature Pulse Rate 124 H Respiratory Rate 31 H Blood Pressure 109/74 108/68 Pulse Oximetry Oxygen Delivery Method 12/27/22 01:30 12/27/22 01:30 Temperature Pulse Rate 129 H Respiratory Rate 19 Blood Pressure 101/57 L Pulse Oximetry 90 L Oxygen Delivery Method Oxygen Delivery Method Room Air Narrative Exam Narrative: General: Patient is a well-developed, well-nourished male, somnolent appears still intoxicated, in no distress at this time. HEENT: Normocephalic, abrasion to left side of scalp, extraocular muscles intact, oral pharynx is clear and mucous membranes are moist. Neck is supple and symmetric, trachea is midline, no adenopathy, no thyroid enlargement, nontender, no masses palpated. Negative for JVD Chest: Normal AP diameter and contour without kyphoscoliosis, no nasal flaring, retractions, or tachypneic labored breathing Lungs: Auscultation of all lung figueroa are clear without adventitious sounds, wheezes, rhonchi, or rales. Cardio: Tachycardic irregular rate and atrial fibrillation rhythm without murmur, rubs, or gallops, no carotid bruit, no cardiac pulsations present. Abdomen: Soft nontender, negative for organomegaly, or masses. Bowel sounds are present in all 4 quadrants without guarding or rebound, no CVA tenderness. Musculoskeletal: Muscle strength and tone appear equal within normal limits, no deformity, crepitus, effusions, cyanosis, clubbing or edema present. Full range of motion intact radial and pedal pulses are normal. Skin: Warm dry and intact without rashes, ulcerations or petechiae. Noted abrasion to right shoulder Neuro: Alert and orientated to self, somnolent, continues to mumble and is confused as to where he is likely secondary to intoxication, moves all extremities, sensation to touch intact, no gross deficits noted of cranial nerves. Psych: Patient has a poorly kempt appearance, somnolent, intoxicated. Objective Labs 12/26/22 22:30 12/26/22 22:30 Labs: Laboratory Results - last 24 hr 12/26/22 12/26/22 12/26/22 22:30 22:30 22:30 WBC 10.6 RBC 4.84 Hgb 15.9 Hct 46.1 MCV 95.3 MCH 32.8 MCHC 34.4 RDW 13.9 Plt Count 312 Neut % (Auto) 51.0 Lymph % (Auto) 35.5 [place] % (Auto) 10.1 Eos % (Auto) 2.7 Baso % (Auto) 0.7 Neut # (Auto) 5400 Lymph # (Auto) 3800 [place] # (Auto) 1100 H Eos # (Auto) 300 Baso # (Auto) 100 PT 11.1 INR 1.0 APTT 30 Sodium 138 Potassium 4.0 Chloride 103 Carbon Dioxide 24 BUN 8 L Creatinine 0.70 Estimated GFR > 60 BUN/Creatinine Ratio 11.4 Glucose 116 H Calcium 8.5 Magnesium Total Bilirubin 0.4 AST 38 ALT 43 Alkaline Phosphatase 85 Total Creatine Kinase CK-MB (CK-2) CK-MB (CK-2) Rel Index Troponin I Total Protein 7.6 Albumin 4.5 Globulin 3.1 Albumin/Globulin Ratio 1.5 Lipase 71 Ethyl Alcohol 243 H 12/26/22 22:30 WBC RBC Hgb Hct MCV MCH MCHC RDW Plt Count Neut % (Auto) Lymph % (Auto) [place] % (Auto) Eos % (Auto) Baso % (Auto) Neut # (Auto) Lymph # (Auto) [place] # (Auto) Eos # (Auto) Baso # (Auto) PT INR APTT Sodium Potassium Chloride Carbon Dioxide BUN Creatinine Estimated GFR BUN/Creatinine Ratio Glucose Calcium Magnesium 2.3 Total Bilirubin AST ALT Alkaline Phosphatase Total Creatine Kinase 153 CK-MB (CK-2) TNP CK-MB (CK-2) Rel Index TNP Troponin I < 0.012 Total Protein Albumin Globulin Albumin/Globulin Ratio Lipase Ethyl Alcohol Assessment & Plan Assessment & Plan narrative: Ibrahima Solorzano is a 67-year-old male with a medical history of alcohol abuse, hyperlipidemia, tobacco abuse who had a ground level fall, with head injury at home was found by his unconscious, brought into ED via EMS found to be intoxicated and in atrial fibrillation RVR . Patient admitted for ground level fall with head injury and loss of consciousness, atrial fibrillation with RVR, ETOH intoxication, and abdominal aneurysm. Patient requires IV hydration, management of new onset AFib with RVR heart rates continued to be in the 130s to 140s, monitor for alcohol withdrawal and management, MRI to rule out stroke patient is currently boarding in ED and will be moved to the ICU tomorrow. Ground level fall, with head injury and LOC, acute, present on admission * Unclear as to cause of fall and LOC-possibily intoxication, AFib with RVR, TIA/stroke or a combination. * Head CT was negative for acute intracranial process * MRI ordered for tomorrow * Neuro checks, seizure precautions, continue Lipitor * A1c, TSH/T4, Tox screen Atrial fibrillation with RVR, new onset acute, present on admission * ED:136/95, 115/91, rate 130-150 * admit: 98/50, 90/60, rate 130-140's unresponsive to metoprolol IV, and Cardizem drip, patient changed to amiodarone * Goal HR: <110, O2 sat>90% * Initiated Eliquis * BNP * Echo ordered for tomorrow Alcohol intoxication, chronic alcohol abuse, acute on chronic, present on admission * Admit ETOH 243-still somnolent heavily intoxicated. * Dietary consult * Vitamin-A, folic acid, thiamine ordered * Reviewed last PCP office visit note patient was reported to have decreased alcohol intake by 40%-07/2022 * [facility] protocol, may consider Precedex drip depending on onset and severity of withdrawal symptoms. 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 Mild decreased enhancement demonstrated in the distal right posterior tibial artery at the level of the ankle without definite focal stenosis visualized.? * Consult order placed for Dr. Diaz general surgery to review Pulmonary edema, mild, present on admission * Chest x-ray mild pulmonary edema Hyperlipidemia, chronic, present on admission * Continue Lipitor Tobacco abuse, chronic, present on admission * Patient education regarding tobacco cessation Code status:Full Surrogate decision maker: Mary Greene DVT/VTE prophylaxis: Eliquis and SCDs Disposition: Patient requiring hospitalization for the management of new onset atrial fibrillation with RVR, alcohol intoxication, and abdominal aneurysm expected length of stay to exceed 2 midnights. I have utilized all available immediate resources to obtain, update, or review the patient's current medications. I confirmed that the patient's advanced care plan is present, Code status is documented and/or surrogate decision maker is listed in the patient's medical record. I have personally reviewed patient's chart notes from PCP, specialists, diagnostic imaging, and laboratory results.
[2022-12-27] MEDS: ONDANSETRON 4 MG/2 ML INJ IV (02:04)
[2022-12-27] MEDS: APIXABAN 5 MG TABLET PO (02:04)
--- NOTE | 2022-12-27 02:14 | PC.NURSE ---
cardizem drip has been titrated per protocol and is currently infusing at 15mg per hour.
[2022-12-27 02:15] LABS: NT-proBNP (BNP-Adult 18+) 24 pg/mL (<125)
[2022-12-27 02:24] LABS: Free T4, Direct Thyroxine 1.34 ng/dL (0.78-2.19)
[2022-12-27 02:38] LABS: Thyroid Stimulating Hormone 2.98 uIU/mL (0.47-4.68)
[2022-12-27 02:44] LABS: UR Morphine/Opiate cutoff 300 Negative (Negative); Ur Creatinine Normal (Normal); Ur Specific Gravity Normal (Normal); Urine Amphetamines Negative (Negative); Urine Barbiturates Negative (Negative); Urine Benzodiazepines Negative (Negative); Urine Cocaine Negative (Negative); Urine MDMA Negative (Negative); Urine Methadone Negative (Negative); Urine Methamphetamines Negative (Negative); Urine Oxycodone Negative (Negative); Urine Phencyclidine Negative (Negative); Urine Tetrahydrocannabinol Positive (Negative); Urine Tricyclic Antidepressant Negative (Negative); Urine pH Normal (Normal)
[2022-12-27] MEDS: AMIODARONE 150 MG/100 ML PIGGYBACK 600 MG IV (03:08)
[2022-12-27] MEDS: AMIODARONE 360 MG/200 ML PIGGYBACK 33.3 MG IV (03:24)
--- NOTE | 2022-12-27 04:44 | PC.NURSE ---
Iraida GALVEZ notified of patients rapid a-fib continuing.
[2022-12-27 05:31] LABS: Add Manual Diff / Slide Review NO; Basophils Absolute Auto 100 /uL (0-100); Basophils Percent Auto 0.4 % (0-2); Eosinophils Absolute Auto 0 /uL (0-450); Eosinophils Percent Auto 0.1 % (2-4); Hematocrit 45.7 % (41-53); Hemoglobin 15.6 g/dL (13.5-17.5); Lymphocytes Absolute Auto 1200 /uL (1100-4500); Lymphocytes Percent Auto 6.9 % (25-40); Mean Corpuscular HGB Conc 34.2 % (30-36); Mean Corpuscular Hemoglobin 32.2 PG (26-34); Mean Corpuscular Volume 94.1 fL (80-100); Monocytes Absolute Auto 1000 /uL (0-900); Monocytes Percent Auto 5.6 % (3-14); Neutrophils Absolute Auto 14900 /uL (1500-7000); Platelet Count 291 X10^3/uL (150-400); Red Blood Cell Count 4.86 X10^6/uL (4.5-5.9); Red Cell Distribution Width 13.9 % (11.6-14.8); White Blood Cell Count 17.1 X10^3/uL (4.5-11.0)
[2022-12-27 05:32] LABS: BUN Creatinine Ratio 11.9 (6-22); Blood Urea Nitrogen 7 mg/dL (9-20); Calcium 8.4 mg/dL (8.4-10.2); Carbon Dioxide 22 mmol/L (22-32); Chloride 104 mmol/L (98-107); Cholesterol 143 mg/dL (140-199); Estimated Glomerular Filt Rate > 60 mL/min (>60); Ethanol (ETOH) 106 mg/dL; Glucose 119 mg/dL (80-110); HDL Cholesterol 64 mg/dL (40-60); HEMOLYSIS 25 (0-50); LDL Cholesterol Calculated 55 mg/dL (<100); Potassium 4.2 mmol/L (3.4-5.1); Sodium 137 mmol/L (137-145); Triglycerides 121 mg/dL (35-150)
[2022-12-27] MEDS: HEPARIN 5,000 UNIT/ML VIAL 5000 UNIT IV (05:34)
[2022-12-27] MEDS: HEPARIN DRIP 25,000 UNIT/500 ML IV.SOLN 20 UNIT IV (05:35)
[2022-12-27 05:44] LABS: Troponin I 0.018 ng/mL (0.01-0.034)
--- NOTE | 2022-12-27 06:06 | PC.NURSE ---
just a few minutes after the diltiazem gtt was started at 5mg per hour,he converted to sinus rhythm.Carolina GALVEZ gave verbal order to stop the dilt. gtt.An ekg was obtained and given to her.
[2022-12-27 07:38] LABS: Magnesium 2.1 mg/dL (1.6-2.3)
[2022-12-27] MEDS: FOLIC ACID 1 MG TABLET PO (09:17)
[2022-12-27] MEDS: MULTIVITAMIN 1 TABLET 1 TAB PO (09:17)
[2022-12-27] MEDS: THIAMINE 100 MG TABLET PO (09:18)
--- NOTE | 2022-12-27 10:42 | DIET.CONS ---
Dietary Consultation Note Admission Date: 12/27/2022 02:30 Assessment: 67y M admitted after GLF resulting in LOC and etoh intoxication with new afib referred to nutrition for ETOH. Pt reported to PCP in 06/25 etoh consumption of 8 beers daily x1y due to grief of of daughter. Counselled by PCP for cessation. F/u pt stated he had reduced by 40%. Pt started on statin at that time, lipid panel now WNL, pts liver enzymes WNL, pt weight stable. Pt currently receiving thiamine and folic acid supplementation and being monitored with CIWA. No nutrition concerns identified at this time related to etoh use, pt appears to be working on reduction, actively engaged with PCP, social work support likely indicated to explore barriers and strategies. Ht: 182.88 cm Wt: 91.5 kg BMI: 27.3 Last BM: 12/26/22 (12/27/22 08:46) MNA: 12 Andrea Score: 20 Diet: 12/27/22 Breakfast Heart Healthy Diet Diet Modifications: Sodium Level: 2 gm Sodium Labs: RBC 4.86 X10^6/uL (4.5-5.9) 12/27/22 05:10 Hgb 15.6 g/dL (13.5-17.5) 12/27/22 05:10 Hct 45.7 % (41-53) 12/27/22 05:10 Creatinine 0.59 mg/dL (0.66-1.25) L 12/27/22 05:10 NT-Pro-B Natriuret Pep 24 pg/mL (<125) 12/26/22 22:30 Electronically Signed by: Joseline Beck 12/27/22 10:42 Clinical Dietitian [address] [address]
[2022-12-27 11:55] LABS: PTT Partial Thromboplastin Tim 30 SECONDS (26-36)
[2022-12-27 12:09] LABS: Troponin I 0.025 ng/mL (0.01-0.034)
--- NOTE | 2022-12-27 12:10 | CM.DANOTE ---
Initial DCP Assessment Note Patient is a 67 yo M, resident of [facility], presents via EMS after found him in their BR after a fall, unresponsive. Patient intoxicated, found to have a BAL of 243. Patient admitted for ground level fall with head injury and loss of consciousness, atrial fibrillation with RVR, ETOH intoxication PCP Lucas Pratt [facility]/ Jag brown Montalba Reviewed chart. Met w/patient and spouse Hemalatha, introduce self and role. Patient appears groggy, eyes open and closed, able to answer questions, slowly, says last memory is putting on his shoes in the AM to wake up the chickens Patient admits to drinking 10-12 beers daily, hard alcohol sometimes, says he starts drinking when he gets up in the morning. 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 Patient cannot remember the last time he was sober. Spouse says the last time she has seen patient go through withdrawals is when their children were little, patient had been sober x2 years and then relapsed Spouse speaks to patient, tells him his drinking is affecting his health and encourages patient to consider that he has numerous loved ones that want to see him live and want to see him healthy Dr Rosen enters the room, visit paused at this time, will plan to return to speak with spouse...who says she is worried about taking patient home (r/t the amount of falls patient has had while drinking). Spouse works in [place] x2 days weekly. According to Dr Rosen, patient will remain admitted at least this evening, started on Librium with the expectation of ETOH w/d. MRI Neg for stroke however did identify a minimal subdural hematoma; patient being monitored closely KUNAL Damon Discharge Planning/Care Management CM Discharge Assessment Start: 12/27/22 12:05 Freq: Status: Active Protocol: Document 12/27/22 12:05 MARCIA (Rec: 12/27/22 12:09 MARCIA [id number]) Discharge Planning Assessment Assigned Explosives Mixer Operator Malu Hernandez, LANGUAGE INSTRUCTOR DPOA/Assigned Designee Name Mary Elliott, spouse Contact Information [phone] Advance Directives? No History Provided By Patient,Significant Other, Medical Record Prior Living Arrangements House Household Members spouse Independent with ADL's Yes: Drinks to get drunk, daily Is patient alert and oriented? Yes Comment TBD. See narrative Discharge Plan Home Transportation Arrangement Spouse Additional Comment Following for needs Whiteboard Updated in Patient Room with Yes name and ext. # of Explosives Mixer Operator Comment Spouse asks that this LANGUAGE INSTRUCTOR return to bedside when he is more alert
[2022-12-27 12:24] LABS: MRSA (Nasal) PCR Not Detected (Not Detect)
--- NOTE | 2022-12-27 12:24 | PM.EVENT ---
Event Note Date Patient Seen: 12/27/22 Time Patient Seen: 12:00 Event Note (Rapid Response, Code, or fall): 67-year-old male with alcohol dependence, tobacco dependence, hyperlipidemia admitted early this morning with alcohol intoxication, altered mental status, AFib with RVR, and status post fall with hitting his head. He was noted to be altered in the emergency department. Initial head CT was negative. He was noted to be in AFib with RVR. He subsequently converted prior to arrival to the medical unit this morning. He had been on heparin drip because of the AFib. This was stopped prior to going to diagnostic imaging for his MRI. MRI was completed and reveals a focal left temporal contusion with associated subarachnoid blood and probable very minimal subdural hematoma. No evidence of acute stroke. Age-related volume loss and mild small-vessel ischemic change were noted. Patient is alert, awake, answering questions appropriately. He is somewhat impulsive and picking at his with equipment. is at bedside. Patient tells me he drinks 10 beers a day, typically starting at 6:30 a.m. in the morning. Does get some withdrawal symptoms when he does not drink. He has been drinking daily for decades. He successfully had a 1 year period of sobriety greater than 30 years ago when his children were little. Patient does not feel he has a problem with drinking according to what he told the MULTI MEDIA SPECIALIST. He tells me he has not thought about quitting. Exam: GEN: Middle-aged male, Alert and oriented x 1-2, NAD HEENT:NC, Face symmetric, mildly tender to palpation of the right temporal region CHEST: Respiratory excursions symmetric, CTAB CV: RRR, no M/R/G ABD: Soft, NT/ND, BT present in all 4 quadrants, no organomegaly or masses EXTR: warm, well perfused, no C/C/E SKIN: warm and dry, no rash NEURO: Alert and oriented times 1-2, nonfocal Assessment/plan: 1. Left temporal lobe contusion with associated subarachnoid blood and minimal subdural hematoma, secondary to traumatic injury Will continue monitoring his neuro status over the next 24 hours. Anticipate he will show ongoing improvement with his cognitive status, as RN at bedside reports he has improved over the course of the day since he arrived to the floor. 2. Alcohol dependence He is at high risk for withdrawal. Will start Librium. Continue CIWA protocol. He appears pre contemplative for cessation. 3. Paroxysmal AFib with RVR He converted to sinus rhythm this morning. 4. Leukocytosis Likely reactive in nature. No evidence of acute infection. Will monitor. 5. 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 Will need annual follow-up with vascular surgery. 6. Hyperlipidemia Continue Lipitor Code status Full Prophylaxis Chemical prophylaxis contraindicated in the setting of intracranial bleeding Disposition Pending
--- NOTE | 2022-12-27 14:51 | PT.IIE ---
Current Diagnoses Unspecified atrial fibrillation (12/27/22) Surgical History (Last Reviewed 12/27/22 @ 01:55 by NIKHIL Lake-) Anesthesia History of bunionectomy (~1974) History of rectal surgery (~1984) History of tonsillectomy and adenoidectomy (~1965) Medical History (Last Reviewed 12/27/22 @ 03:48 by Jasson Kaufman DO) Alcohol use Allergic rhinitis (~1964) Depression (~2019) Grieving Hemorrhoid (~1984) Hepatitis A (~1965) Hyperlipidemia Syncope Tobacco dependence Physical Therapy Inpatient Evaluation/Re-Eval M1 PT/OT-IP Prior Functional Status Start: 12/27/22 11:31 Freq: NEEDED Status: Active Protocol: Document 12/27/22 14:19 ES (Rec: 12/27/22 14:51 ES [id number]) Medical Review Prior Functional Status Medical History Reviewed Yes Communication Indep Mobility and Gait Indep without AD Activities of Daily Living and IADL's Indep Prior Functional Level (Other details) Able to drive Social History Household Members spouse Living Arrangements House Number of Floors (Floors) 3 or More Floors Number of Stairs To Enter/Railing? 1 step to enter. Full flight of stairs with single rail down to basement where patient spends most of his time and has a bedroom/bathroom. Full flight of stairs with single rail up to second level with bedroom and bathroom. 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 [place]. Patient and think they might have a FWW at home and will look; if not they are willing to obtain one. Patient does have trekking poles. M2 PT-IP Current Condition Start: 12/27/22 11:31 Freq: NEEDED Status: Active Protocol: Document 12/27/22 14:19 ES (Rec: 12/27/22 14:51 ES [id number]) Physical Therapy Current Condition Current Condition Evaluation Date 12/27/22 Treatment Diagnosis GLF with head injury; afib with RVR; alcohol intoxication Onset Date 12/26/22 M3 PT-IP Subjective Start: 12/27/22 11:31 Freq: NEEDED Status: Active Protocol: Document 12/27/22 14:19 ES (Rec: 12/27/22 14:51 ES [id number]) Subjective Physical Therapy Visit Type Type Initial Evaluation Visit Start Time 13:45 Visit Stop Time 14:14 Total Visit Minutes 29 Physical Therapy Visit Comments Patient Comments Patient alert in bed, agreeable to work with PT. Denied pain. present during second have of visit. Patient unable to provide full details leading up to hospitalization. M4 PT-IP Mobility and Gait Start: 12/27/22 11:31 Freq: NEEDED Status: Active Protocol: Document 12/27/22 14:19 ES (Rec: 12/27/22 14:51 ES [id number]) PT-Bed Mobility Assessment Supine to Sit Supine to Sit Independent Sit to Supine Sit to Supine Independent Scooting Scooting to Edge of Bed Independent PT-Transfer Assessment Sit to and From Stand Sit to and from Stand Standby Assistance Equipment Transfer Assistive Device Gait Belt Orthotic/Prosthetic Devices or Brace: No Transfers Transfer Destination Chair Transfer Technique Stand Step Pivot Transfer Ability Level of Assist Contact Guard Assistance,Use of Upper Extremities Comments Mobility Comments FWW was placed next to patient and patient was initially instructed to use FWW but disregarded FWW when performing the transfer, indicating decreased safety awareness. Patient denied dizziness, lightheadedness, shortness of breath. Gait Assessment Gait Gait Assistance Required: Contact Guard Assist Distance (Feet) 45 Assistive Devices Assistive Device Gait Belt,Front Wheeled Walker Orthotic/Prosthetic Devices or Brace: No Factors Limiting Gait Function Factors Limiting Gait Function Poor Balance,Poor Safety Awareness Comments Gait Comments Patient ambulated with unsteady gait, with 2 LOB requiring therapist to correct . Patient was impulsive and at times would let go of the FWW to manage his tele lines while still walking. Stair Climbing Assessment Comments Stair Climbing Comments Did not attempt this visit; anticipate patient will be able to perform stairs with CGA due to good strength in LE 's. PT-Balance Assessment Sitting Balance and Reactions Static Sitting Balance Ability Good Dynamic Sitting Balance Ability Good Standing Balance and Reactions Static Standing Balance Ability Good Dynamic Standing Balance Ability Fair Device Used FWW Balance Tests Single Limb Standing 6 seconds ea B Tandem Standing Unable M5 PT-IP Objective Assessments Start: 12/27/22 11:31 Freq: NEEDED Status: Active Protocol: Document 12/27/22 14:19 ES (Rec: 05/26/23 14:51 ES [id number]) Orientation Orientation/Cognition Level of Alertness Alert Orientation Name,Age,Birthday,Month,Year, Day of Week,Place,Situation Language Function Ability Word Finding Difficulties Safety Awareness Decreased Safety Awareness Memory Description Short Term Impaired Comments Able to follow commands. Poor recall and poor safety awareness noted. Patient is impulsive and demonstrates decreased awareness of deficits. Gross Range of Motion Upper Extremity ROM Assessment Within Functional Limits Lower Extremity ROM Assessment Within Functional Limits Strength Upper Extremity Strength Assessment Within Functional Limits Lower Extremity Strength Assessment Within Functional Limits Coordination Assessment Gross Coordination Gross Coordination WNL M6 PT-IP Treatment Start: 12/27/22 11:31 Freq: NEEDED Status: Active Protocol: Document 12/27/22 14:19 ES (Rec: 12/27/22 14:51 ES [id number]) Physical Therapy Treatment Education Education Provided Safety Other Treatments Other Treatment Performed Discussed ways to increase safety in the home, including increasing supervision, using AD such as FWW when ambulating , and having patient stay on the main level or basement level to reduce need for going up/down stairs throughout the day. M7 PT-IP Assessment and Plan Start: 12/27/22 11:31 Freq: NEEDED Status: Active Protocol: Document 12/27/22 14:19 ES (Rec: 12/27/22 14:51 ES [id number]) PT Summary Assessment and Plan Potential Rehabilitation Potential Fair Status of Condition at Evaluation Evolving Summary Impairments Balance,Cognition,Gait Assessment Summary Patient is a 67 year old male who presents s/p GLF with head injury with impaired functional mobility due to decreased balance and safety awareness. He was impulsive with mobility during eval and demonstrated decreased awareness of deficits. Patient had no deficits in strength and ROM. He was able to ambulate for household distances using FWW though had 2 LOB requiring assist to correct. He is at high risk for falls, which I anticipate will improve once he is no longer intoxicated. He may benefit from further skilled therapy during hospitalization to assess safety with mobility prior to returning home; otherwise anticipate patient will d/c home with 's assistance as PT is unlikely to change his functional status at this point in time. Recommend OP PT if balance issues do not improve when no longer intoxicated. Goals Bed Mobility Goal Independent Transfer Goal Independent Gait Goal Independent Gait Distance 300 Other Goals Patient will be able to ascend /descend 12 stairs with single rail at independent level. Days to Meet Goals 5 Frequency of Treatment Frequency Of Treatment Once a Day Treatment Plan Physical Therapy Treatment Plan Gait Training,Therapeutic Exercise,Balance Retraining, Discharge Planning, Neuromuscular Re-ed Other Recommendations and Next Treatment Assess mobility/balance/safety Focus , stair training as needed. Precautions Other Precautions Fall risk Recommendations To Nursing Amount of Assist Needed 1 Person Assist Discharge Recommendations PT Discharge Recommendations Home with / Assist Available,Outpatient PT Other Discharge Recommendations Possibly OP PT for balance training Transportation Needs at Discharge Private Vehicle
--- NOTE | 2022-12-27 16:10 | OT.IP.EVAL ---
Current Diagnoses Unspecified atrial fibrillation (12/27/22) Past Medical History (Last Reviewed 12/27/22 @ 03:48 by Jasson Kaufman DO) Alcohol use Allergic rhinitis (~1964) Depression (~2019) Grieving Hemorrhoid (~1984) Hepatitis A (~1965) Hyperlipidemia Syncope Tobacco dependence Surgical History (Last Reviewed 12/27/22 @ 01:55 by Carolina Tolbert, [facility]) Anesthesia History of bunionectomy (~1974) History of rectal surgery (~1984) History of tonsillectomy and adenoidectomy (~1965) Occupational Therapy Inpatient Evaluation/Re-Eval M1 PT/OT-IP Prior Functional Status Start: 12/27/22 16:46 Freq: NEEDED Status: Active Protocol: Document 12/27/22 15:10 [facility] (Rec: 12/27/22 17:12 [facility] [id number]) Medical Review Prior Functional Status Medical History Reviewed Yes Communication Indep Mobility and Gait Indep without AD Activities of Daily Living and IADL's Indep Prior Functional Level (Other details) Able to drive Social History Household Members spouse Living Arrangements House Number of Floors (Floors) 3 or More Floors Number of Stairs To Enter/Railing? 1 step to enter. Full flight of stairs with single rail down to basement where patient spends most of his time and has a bedroom/bathroom. Full flight of stairs with single rail up to second level with bedroom and bathroom. 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 [place] Patient and think they might have a FWW at home and will look; if not they are willing to obtain one. Patient does have trekking poles. M2 OT-IP Current Condition Start: 12/27/22 16:46 Freq: Status: Active Protocol: Document 12/27/22 15:10 [facility] (Rec: 12/27/22 17:12 [facility] [id number]) Occupational Therapy Current Condition Current Condition Evaluation Date 12/27/22 Treatment Diagnosis GLF, ETOH, A-fib RVR, miniml subdural hematoma Diagnosis Onset Date 12/27/22 M3 OT- IP Subjective and Pain Start: 12/27/22 16:46 Freq: Status: Active Protocol: Document 12/27/22 15:10 [facility] (Rec: 12/27/22 17:12 [facility] [id number]) OT- Subjective Occupational Therapy Visit Type Type Initial Evaluation Visit Start Time 15:10 Visit Stop Time 16:10 Total Visit Minutes 60 Occupational Therapy Visit Comments Patient Comments Pt asleep and taking to pt's and then pt able to awaken to participate in OT eval. OT Pain Assessment Pain When Pain Assessed At Rest Pain Present Pain Present Denied Pain M4 OT- IP ADL's Start: 12/27/22 16:46 Freq: Status: Active Protocol: Document 12/27/22 15:10 [facility] (Rec: 12/27/22 17:12 [facility] [id number]) OT [id number] Comments OT Self-Feeding Comments Not at meal time OT ADL-Grooming Comments OT Grooming Comments Not performed OT ADL-Oral Care Comments Oral Care Comments Not performed OT ADL-Dressing Comments OT Dressing Comments Pt will need assist due to poor balance and judgment at this time. OT ADL-Toileting Comments OT Toileting Comments Pt not having to go. OT ADL-Bathing Comments OT Bathing Comments Use of shower chair/tub bench would be best at this time due to poor balance. M5 OT- IP IADL's Start: 12/27/22 16:46 Freq: Status: Active Protocol: Document 12/27/22 15:10 [facility] (Rec: 12/27/22 17:12 [facility] [id number]) OT-Instrumental Activities of Daily Living Deficits IADL Deficits Identified Deficits Home Safety Awareness Awareness of Need for Assistance at Home Decreased Awareness Ability to Problem Solve Emergency Unable to Problem Solve Situations Home Safety Comments Pt having difficulty with short term memory, easily distracted, and has poor safety awareness at this time . Money Management Money Management Caregiver Provides Assistance Meal Preparation Meal Preparation Caregiver Provides Assist M6 OT- IP Functional Cognition Start: 12/27/22 16:46 Freq: Status: Active Protocol: Document 12/27/22 15:10 [facility] (Rec: 12/27/22 17:12 [facility] [id number]) Cognitive Factors Limiting Selfcare Function Cognitive Ability Level of Alertness Confusional State Patient Orientation Name Attention Span Ability Capable of Focused Attention, Unable to Sustain Attention Ability to Follow Commands Able to Follow One Step Commands with Increased Time, Able to Follow One Step Commands with Repetition Memory Description Short Term Impaired,Working Impaired Safety Awareness Underestimates Need for Assistance Problem Solving Ability Unable to Identify Errors, Needs Assist to Identify Solutions Executive Function Ability Unable to Switch Focus,Unable to Filter Distractions,Unable to Remember Details Cognitive Comments Cognitive Assessment Comments Pt having poor short term memory at this time and unable to recall directions for [place] or recall times pt scored for 9 hole peg test. Pt also not recalling the purpose of each assessment even though just immediately explaining what each assessment was for. Pt scored 303 seconds and needing MAX vc to recall the directions of the assessment and to be able to alternate between numbers and letters. Pt scored on the [place] implies severe impairments for visual attention, speed of processing, executive functioning, mental flexibility , and task switching. Pt well aware that pt should not be driving at this time. Pt is aware that he is not thinking very well and he is slower at this time. OT- Vision and Hearing OT- Hearing Assessment OT- Hearing Assessment WFL OT- Vision Assessment Visual Acuity Glasses All The Time Occular Pursuits WFL Visual Convergence WFL Visual Lara WFL M7 OT- IP Mobility and Balance Start: 12/27/22 16:46 Freq: Status: Active Protocol: Document 12/27/22 15:10 [facility] (Rec: 12/27/22 17:12 [facility] [id number]) OT- Bed Mobility Assessment Rolling Level of Assistance Standby Assistance Scooting Scooting to Edge of Bed Standby Assistance OT-Transfer Assessment Sit to and From Stand Sit to and from Stand Minimal Assistance Transfers Transfer Ability Moderate Assistance Technique Transfer Destination Bed,Chair Transfer Technique Stand Step Pivot Devices Transfer Assistive Devices Gait Belt Comments Mobility Comments Pt very impulsive and needing MODA for transfers as very unsteady on his feet. OT- Balance Assessment Sitting Balance and Reactions Static Sitting Balance Ability Good Dynamic Sitting Balance Ability Good Standing Balance and Reactions Static Standing Balance Ability Fair Dynamic Standing Balance Ability Poor M8 OT- IP Objective Assessments Start: 12/27/22 16:46 Freq: Status: Active Protocol: Document 12/27/22 15:10 [facility] (Rec: 12/27/22 17:12 [facility] [id number]) OT Strength Comments Strength Comments BUE 4/5 OT- Coordination Assessment Upper Extremity Finger to Nose Test Right UE Impaired Comments Coordination Comments Slightly off with his right hand Left hand slightly less smooth movements for finger to nose versus left hand. Right hand 35 seconds and Left hand 34 seconds which both score are under 10th percentile for his age.However pt is right handed. M9 OT- IP Assessment and Plan Start: 12/27/22 16:46 Freq: Status: Active Protocol: Document 12/27/22 15:10 [facility] (Rec: 12/27/22 17:12 [facility] [id number]) OT Summary Assessment and Plan Potential Rehabilitation Potential Good Analytic Complexity at Evaluation Moderate Summary OT Impairments Strength,Balance,Coordination, Functional Cognition, Functional Mobility,Self- Feeding,Grooming,Dressing, Toileting,Bathing,Toilet Transfers,Shower Transfers, Activity Tolerance Progress Towards Goals Slow Progress due to Medical Issues,Slow Progress due to Activity Tolerance,Slow Progress due to Cognition Assessment Summary Pt High complexity and here due to GLF, ETOH, new onset A- fib RVR, and also having minimal subdural hematoma- which may be contributing to his ability to recall verbal information in addition to having ETOH. Pt also having trouble with coordination right hand slightly more that left hand at this time. Pt is very unsteady on his feet , impulsive and is a high risk for falls. Pt will benefit greatly to use a FWW at this time. Pending ETOH versus minimal subdural hematoma, hopefully pt will progress and clear. At this time pt will need 24/7 assist at home and outpt PT/OT. If pt symptoms progresses may benefit from SNF or acute rehab. Goals Self-Feeding Goal Independent Grooming Goal Independent Dressing Goal Independent Toileting Goal Independent Bathing Goal Independent Toilet Transfer Goal Independent Patient/Caregiver Education Goal Caregiver Independent Assisting Patient Days to Meet Goals 15 Frequency of Treatment Frequency Of Treatment Once a Day Treatment Plan OT Treatment Plan ADL Training,Functional Cognition Training,Functional Mobility,Patient/Family Education,Discharge Planning Other Treatment Recommendations and Next Reassess cognition and Treatment Focus coordination Discharge Recommendations OT Discharge Recommendations Home with 24/7 Assist Available,Home Health, Outpatient PT,SNF vs Acute Rehab Home Equipment Needs FWW, shower chair Transportation Needs at Discharge Private Vehicle
[2022-12-27] MEDS: chlordiazePOXIDE 25 MG CAPSULE PO (17:02)
[2022-12-27] MEDS: LORazepam 2 MG/ML INJ IV (21:15)
[2022-12-27] MEDS: LORazepam 2 MG/ML INJ (21:17)
[2022-12-27] MEDS: ATORVASTATIN 20 MG TABLET PO (21:17)
--- NOTE | 2022-12-27 21:45 | PC.NURSE ---
CIWA jumped to 13 as pt became anxious and agitated with severe tremor. Medicated with IV 2 mg lorazepam as indicated in CIWA protocol. Had to override medication in the pyxis
[2022-12-27 22:38] LABS: Labcorp Hemoglobin (Hb) A1c 5.7 % (4.8-5.6)
[2022-12-28 01:45] VITALS: PULSE 65; RESP 14
[2022-12-28 01:46] VITALS: PULSE 65; RESP 14
[2022-12-28 03:18] VITALS: BP 170/91; PULSE 85; RESP 18; TEMP 36.6; O2SAT 97
[2022-12-28] MEDS: LORazepam 1 MG TABLET PO (04:23)
[2022-12-28] MEDS: LORazepam 2 MG/ML INJ (04:24)
--- NOTE | 2022-12-28 04:36 | PC.NURSE ---
CIWA at 13 with severe tremor, anxiety, agitation and mild headache. Medicated with IV 2 mg of lorazepam. Override at pyxis required.
[2022-12-28 04:43] VITALS: PULSE 85; RESP 16
[2022-12-28 05:09] LABS: Add Manual Diff / Slide Review NO; Basophils Absolute Auto 0 /uL (0-100); Basophils Percent Auto 0.3 % (0-2); Eosinophils Absolute Auto 100 /uL (0-450); Eosinophils Percent Auto 0.4 % (2-4); Hematocrit 43.5 % (41-53); Hemoglobin 15.1 g/dL (13.5-17.5); Lymphocytes Absolute Auto 1300 /uL (1100-4500); Lymphocytes Percent Auto 9.3 % (25-40); Mean Corpuscular HGB Conc 34.6 % (30-36); Mean Corpuscular Hemoglobin 32.3 PG (26-34); Mean Corpuscular Volume 93.2 fL (80-100); Monocytes Absolute Auto 1300 /uL (0-900); Monocytes Percent Auto 9.4 % (3-14); Neutrophils Absolute Auto 11600 /uL (1500-7000); Neutrophils Percent Auto 80.6 % (50-75); Platelet Count 269 X10^3/uL (150-400); Red Blood Cell Count 4.67 X10^6/uL (4.5-5.9); Red Cell Distribution Width 13.3 % (11.6-14.8); White Blood Cell Count 14.3 X10^3/uL (4.5-11.0)
[2022-12-28 05:10] VITALS: PULSE 66; RESP 16
[2022-12-28 05:22] LABS: BUN Creatinine Ratio 12.9 (6-22); Blood Urea Nitrogen 8 mg/dL (9-20); Calcium 8.7 mg/dL (8.4-10.2); Carbon Dioxide 27 mmol/L (22-32); Chloride 98 mmol/L (98-107); Estimated Glomerular Filt Rate > 60 mL/min (>60); Glucose 113 mg/dL (80-110); HEMOLYSIS < 15 (0-50); Magnesium 2.1 mg/dL (1.6-2.3); Potassium 3.9 mmol/L (3.4-5.1); Sodium 132 mmol/L (137-145)
[2022-12-28] MEDS: chlordiazePOXIDE 25 MG CAPSULE PO (06:20)
[2022-12-28 07:00] VITALS: BP 165/95; PULSE 79; RESP 20; TEMP 36.4; O2SAT 94
[2022-12-28] MEDS: FOLIC ACID 1 MG TABLET PO (08:33)
[2022-12-28] MEDS: chlordiazePOXIDE 25 MG CAPSULE 50 MG PO (08:33)
[2022-12-28] MEDS: MULTIVITAMIN 1 TABLET 1 TAB PO (08:33)
[2022-12-28] MEDS: THIAMINE 100 MG TABLET PO (08:34)
--- NOTE | 2022-12-28 08:42 | DI.CT.S_ITS ---
PROCEDURE: CT HEAD/BRAIN WO CON INDICATIONS: Reassess small SAH and SDH TECHNIQUE: Noncontrast 4.5 mm thick angled axial sections acquired from the foramen magnum to the vertex, with coronal and sagittal reformats. For radiation dose reduction, the following was used: automated exposure control, adjustment of mA and/or kV according to patient size. COMPARISON: [facility], CT, CT HEAD/BRAIN WO CON, 12/26/2022, 22:46. FINDINGS: Image quality: Excellent. CSF spaces: Basal cisterns are patent. No extra-axial fluid collections. The ventricles are symmetric in size and shape. Brain: There is extremely tiny focus of hyperdensity in the left frontal region, likely part subdural, part subarachnoid space, stable to slightly decreased in prominence compared to the prior study. There is evolution of a small nodular collection of hyperdensity in the left anterior inferior temporal region with adjacent hypodensity, increased compared to the prior CT measuring about 4.6 cm in AP extent. There is slight loss of pedersen-white matter differentiation in the anterior left temporal lobe. Findings are superimposed on a background of moderate small-vessel ischemic change. Skull and face: Calvarium and visualized facial bones appear intact, without suspicious lesions. Sinuses: Visualized sinuses and mastoids are clear. IMPRESSION: 1. Evolution of left inferior temporal hemorrhagic contusion with more prominent temporal lobe edema. Visibility of the hemorrhage has increased compared to the prior CT. 2. Stable small subdural/subarachnoid contusion in the left frontal region. Dictated by: Sarah Langley M.D. on 12/28/2022 at 9:01 Approved by: Sarah Langley M.D. on 12/28/2022 at 9:13
--- NOTE | 2022-12-28 12:01 | PT-IP ANOTE ---
checked on pt and pt having care conference with the doctor, nurses and immigration case worker. Talked with nurse after care conference and stated not to see the pt. pt with h/o ETOH use and pt and family decided for pt to go home and pt will be going home in an hour.
--- NOTE | 2022-12-28 14:31 | CM.DPNOTE ---
DC Note Family conference in patient's room today, present are: Patient, spouse, son Jesus, Dr Rosen, RN Deb and this TIRE INSTALLER Lengthy conversation discussing patient's current stated goals vs the stated and optimistic goals of patient's family. Family very hopeful patient will soon agree to sobriety and treatment. Currently, patient not stating goal to be sober or for treatment at this time Patient is considered very high risk for severe withdrawal if he remains hospitalized; family decides to take patient home to resume drinking Dr Rosen suggests that patient minimize his drinking as a first step, if he is agreeable Provided [facility] treatment resources to include: Inpatient [facility] treatment, outpatient [facility] treatment, detox facilities, [facility], [email or web address], [facility] Placed referral to [facility] per conversation w/ family. [place] at the time of this note from Jena at [facility] that this referral needs to be reviewed by clinical team Friday or Friday before start of care, r/t patient's heavy ETOH use Plan: Discharge home with family today, expected to resume drinking; detox, inpatient and outpatient [facility] resources provided in the case patient seeks sobriety JW
--- NOTE | 2022-12-28 14:48 | P.DS_ITS ---
History of Present Illness History of Present Illness Chief complaint: Afib RVR, GLF-LOC, ETOH Narrative: per history and physical: Ibrahima Solorzano is a 67-year-old male with a medical history of alcohol abuse, hyperl ipidemia, tobacco abuse who had a ground level fall, with head injury at home was found by his unconscious, EMS was called patient initially found unarousable, patient was intoxicated in atrial fibrillation.? In ED patient was arousable was able to answer some questions denies history of atrial fibrillation. Patient ETOH of 243, and in AFib with RVR rate 130-150, initially hemodynamically stable BP 136/95, 115/91.? Patient was initially given metoprolol push without resolution, Dilt and was placed on diltiazem drip. ?On admit patient denies chest pain, shortness in breath, headache, changes in vision, difficulty swallowing, speech impairment, weakness, numbness, tingling, difficulty with ambulation, fever, body aches, chills, cough, recent exposure to illness, abdominal pain, nausea, vomiting, urinary incontinence/retention, dysuria, frequency, urgency, hematuria, bowel changes, constipation, incontinence, melena, rashes, recent changes to medication or illness. On admit hypotensive 98/50, 90/60, patient is somnolent, arousable, able to answer questions some questions but a lot of mumbling still significantly intoxicated, protecting airway but O2 saturations do drop into the 80s when he falls back asleep.? Patient's CBC, CMP, liver panel, troponin are all WNL.? ETOH 243.? Chest x-ray mild pulmonary edema, widening midsternal contours.? Head CT negative, facial CT negative, C-spine negative, chest CT showed 4 cm abdominal aneurysm.? Patient admitted for ground level fall with head injury and loss of consciousness, atrial fibrillation with RVR, ETOH intoxication, and abdominal aneurysm. Discharge Providers Provider Date of admission: 12/27/22 02:30 Discharge Date: 12/28/22 Primary care physician: Lucas Duran DO Consults: 12/27/22 01:35 Consult to Dietitian, Adult Routine Comment: Reason For Exam: ETOH Abuse, new afib 12/27/22 01:43 Consult to Occupational Therapy Evaluate & Treat Comment: GLF -LOC Physician Instructions: Evaluate and treat Consult to Physical Therapy Evaluate & Treat Comment: GLF/LOC Physician Instructions: Evaluate and Treat Consult to Physician Routine Comment: Consulting Provider: Song Diaz Reason for consultation: 4 cm abdominal aneurysm Has provider been notified: No 12/28/22 11:39 Consult to Home Health Routine Comment: Reason For Exam: home health upon discharge Discharge provider: Tiffanie Rosen MD Summary Hospital Course Hospital Course: 67-year-old male with alcohol dependence, tobacco dependence, hyperlipidemia admitted early this morning with alcohol intoxication, altered mental status, AFib with RVR, and status post fall with hitting his head. He was noted to be altered in the emergency department.? Initial head CT was negative.? He was noted to be in AFib with RVR.? He subsequently converted prior to arrival to the medical unit On 12/27/2022.? He had been on heparin drip because of the AFib.? This was stopped prior to going to diagnostic imaging for his MRI.? MRI was completed and reveals a focal left temporal contusion with associated subarachnoid blood and probable very minimal subdural hematoma.? No evidence of acute stroke.? Age-related volume loss and mild small-vessel ischemic change were noted. patient reported that he drinks 10 beers a day, typically starting at 6:30 a.m. in the morning. Last had a period of sobriety greater than 30 years ago. He was pre contemplative for cessation. He remained neurologically intact. Follow-up CT of the head revealed evolution of left inferior temporal hemorrhagic contusion with more prominent temporal lobe edema. visibility of the hemorrhage has increased compared to the prior CT. There was a stable small subdural / subarachnoid contusion in the left frontal region. He did develop some early withdrawal symptoms on the date of discharge. He again conveyed that he did not feel ready to discontinue alcohol use. Due to concerns for potential severe withdrawal symptoms, recurrence of AFib, likely need for sedation due to impulsivity and withdrawal symptoms, the FITNESS CONSULTANT, CAR FERRIER, and I had a long conversation with the patient, his , and his adult son about the risks and benefits of remaining hospitalized. Options were presented including remaining in the hospital and continuing through his withdrawal till he had resolution of withdrawal syndrome, continued hospitalization with the addition of alcohol to avoid further withdrawal, or discharging home with family. Ultimately, as he does not wish to quit drinking and is very high risk for complications, the decision was made for him to discharge home today with 24 hour supervision By family members. home health will be coordinated for PT and OT for strengthening and balance as well as an CAR FERRIER to assist with outpatient resources. Encouraged them to follow-up in the emergency department for any worsening neurologic symptoms, seizure, or new concerns. Unfortunately, patient is high risk for further complications secondary to his severe alcohol dependence and has relatively lacking insight into his disease. Patient is discharged in stable but guarded condition. I did recommend that he be seen early next week by his PCP for follow-up. Status at Discharge Cognitive/behavioral status at discharge: oriented ( He is oriented but does have some mild confusion) Overall status at discharge: patient is not back to baseline Time Spent with Patient Time spent: Greater than 30 minutes ( approximately 45 minutes spent in conference with the patient's , son, and the patient himself And coordinat ing discharge) Exam Vital Signs (past 8 hours): - 12/28/22 07:00 Temperature 97.5 F L Pulse Rate 79 Respiratory Rate 20 Blood Pressure 165/95 H Pulse Oximetry 94 Oxygen Flow Rate 0 Oxygen Delivery Method Room Air Oxygen Flow Rate 0 Narrative Exam Narrative: GEN:? Middle-aged male, Alert and oriented x 2, NAD HEENT:NC, Face symmetric, small amount of ecchymosis noted around the right lateral canthus of the eye CHEST: Respiratory excursions symmetric, CTAB CV: RRR, no M/R/G ABD: Soft, NT/ND, BT present in all 4 quadrants, no organomegaly or masses EXTR: warm, well perfused, no C/C/E SKIN: warm and dry, no rash NEURO:? Alert and oriented times 2, patient can name the month, year, location, president, service establishment attendant names. He is disoriented to day of the week and date. Otherwise nonfocal. Objective Labs 12/28/22 04:20 12/28/22 04:20 Labs: Laboratory Results - last 24 hr 12/27/22 12/28/22 12/28/22 05:10 04:20 04:20 WBC 14.3 H RBC 4.67 Hgb 15.1 Hct 43.5 MCV 93.2 MCH 32.3 MCHC 34.6 RDW 13.3 Plt Count 269 Neut % (Auto) 80.6 H Lymph % (Auto) 9.3 L [place] % (Auto) 9.4 Eos % (Auto) 0.4 L Baso % (Auto) 0.3 Neut # (Auto) 32692 H Lymph # (Auto) 1300 [place] # (Auto) 1300 H Eos # (Auto) 100 Baso # (Auto) 0 Sodium 132 L Potassium 3.9 Chloride 98 Carbon Dioxide 27 BUN 8 L Creatinine 0.62 L Estimated GFR > 60 BUN/Creatinine Ratio 12.9 Glucose 113 H Hgb A1c (Ref Lab) 5.7 H Calcium 8.7 Magnesium 12/28/22 04:20 WBC RBC Hgb Hct MCV MCH MCHC RDW Plt Count Neut % (Auto) Lymph % (Auto) [place] % (Auto) Eos % (Auto) Baso % (Auto) Neut # (Auto) Lymph # (Auto) [place] # (Auto) Eos # (Auto) Baso # (Auto) Sodium Potassium Chloride Carbon Dioxide BUN Creatinine Estimated GFR BUN/Creatinine Ratio Glucose Hgb A1c (Ref Lab) Calcium Magnesium 2.1 [facility] Medical History Alcohol use Allergic rhinitis (~1964) Depression (~2019) Grieving Hemorrhoid (~1984) Hepatitis A (~1965) Hyperlipidemia Syncope Tobacco dependence Surgical History Anesthesia History of bunionectomy (~1974) History of rectal surgery (~1984) History of tonsillectomy and adenoidectomy (~1965) Family History Father History of heart disease Mother Alzheimer's dementia Social History household members: spouse Smoking Status: Current every day smoker alcohol intake: current Discharge Plan Discharge Plan Patient Disposition: Home Health Service Provider Discharge Comment: You were hospitalized with a brain contusion (brain bruise w/concussion) and small subdural and subarachnoid hemorrhages. You will continue to have some mild symptoms (headache, fatigue, mild balance issues) for several days. You also had atrial fibrillation (which resolved) and early alcoh ol withdrawal. Do not take any aspirin, ibuprofen, naproxen for at least a couple of weeks. You may take tylenol for mild pain/headaches. Recommend: 24 hour supervision by family for the next several days Work with your primary care provider on reducing your alcohol intake. There are medications that can help with your underlying mental health issues (depression) and cravings for alcohol. Seek outpatient treatment for your alcohol dependence Home Health for: PT/OT - strengthening/balance; CAR FERRIER-resources for alcohol dependence Return to the ER: Seizure worsening alcohol withdrawal symptoms worsening confusion Falls Worsening headache or neurologic symptoms Discharge orders & Medications Prescriptions: New acetaminophen 325 mg Tablet 650 mg PO Q6H PRN (Reason: Fever/Mild Pain (1-3)) Qty: 60 0RF folic acid 1 mg Tablet 1 mg PO DAILY Qty: 30 0RF multivitamin with folic acid [Tab-A-Abraham] 400 mcg Tablet 1 tab PO DAILY Qty: 30 0RF thiamine mononitrate (vit B1) 100 mg Tablet 100 mg PO DAILY Qty: 30 0RF Continued fluticasone propionate [Flonase] 1 spray mucous membrane PRN PRN (Reason: Allergic Symptoms) atorvastatin [Lipitor] 20 mg tablet 20 mg PO BEDTIME Qty: 90 3RF Follow up/Referrals: Lucas Duran DO [Primary Care Provider] - Diet/Activity/Treatments Diet: Diet as Tolerated and Regular Activity: As tolerated, with supervision Oxygen: N/A Visit Report/Discharge Packet Instructions: DI for Concussion, Delirium Tremens, Atrial Fibrillation, DI for Stroke-Subarachnoid Hemorrhage, Alcohol Withdrawal, DI for Subdural Hematoma Stand Alone Forms: Patient Portal/API Discharge Data Primary Care Provider: Lucas Duran Discharges patient from system. Discharge Date/Time: 12/28/22 13:08
--- NOTE | 2022-12-31 12:00 | CM.DPNOTE ---
Late entry: March from [facility] called to say they could Accept this patient for services. Kady Navas CM Closet Organizer.
== END 2022-12-28 13:08 | disposition home health service (06) | DRG 84 ==
LOC: ED 12-27 01:52 → AC 12-27 02:30 → ICU 12-27 07:55
PROVIDERS: Family Medicine; Admitting Provider Nurse Practitioner Family; Emergency Provider Emergency Medicine; PCP Family Medicine; Referring Provider Emergency Medicine; Visit Provider Nurse Practitioner Family
DX: S06.6X9A Traumatic subarachnoid hemorrhage with loss of consciousness of unspecified duration, initial encounter (principal); S06.5X9A Traumatic subdural hemorrhage with loss of consciousness of unspecified duration, initial encounter; I71.40 Abdominal aortic aneurysm, without rupture, unspecified; E78.5 Hyperlipidemia, unspecified; I48.0 Paroxysmal atrial fibrillation; F10.229 Alcohol dependence with intoxication, unspecified; F17.200 Nicotine dependence, unspecified, uncomplicated; W18.30XA Fall on same level, unspecified, initial encounter; Y90.8 Blood alcohol level of 240 mg/100 ml or more; Z20.822 Contact with and (suspected) exposure to COVID-19
CPT/HCPCS: 36415; 70450; 70486; 70548; 70553; 71045; 72125; 75635; 80048; 80053; 80061; 80305; 80320; 82550; 82553; 83036; 83690; 83735; 83880; 84439; 84443; 84484; 85025; 85610; 85730; 87040; 87797; 93005; 93010; 93306; 96365; 96366; 96367; 96375; 96376; 97162; 97167; 99285; 99291; J0282; J1644; J2060; J2405; Q9967

== ENCOUNTER → 2023-01-12 11:53 | Outpatient (CLI) | payer MEDICARE, OTHER, SELFPAY ==
[2022-12-27 08:46] VITALS: BMI 27.3
--- NOTE | 2023-01-12 11:55 | DI.CT.S_ITS ---
PROCEDURE: CT HEAD/BRAIN WO CON INDICATIONS: repeat scan SDH TECHNIQUE: Noncontrast 4.5 mm thick angled axial sections acquired from the foramen magnum to the vertex, with coronal and sagittal reformats. For radiation dose reduction, the following was used: automated exposure control, adjustment of mA and/or kV according to patient size. COMPARISON: [facility], MR, MR STROKE, 12/27/2022, 10:10. [facility], CT, CT HEAD/BRAIN WO CON, 12/28/2022, 9:18. FINDINGS: Image quality: Excellent. CSF spaces: Basal cisterns are patent. No extra-axial fluid collections. Ventricles are normal in size and shape. Brain: No midline shift. Martinez-white matter interface is normal. Focal edema and early gliosis noted involving the left inferior temporal gyrus without evidence of acute hemorrhage. Subarachnoid hemorrhage has resolved. No mass effect or midline shift Skull and face: Calvarium and visualized facial bones are intact, without suspicious lesions. Sinuses: Visualized sinuses and mastoids are clear. IMPRESSION: Gliosis and resolving edema noted in the left inferior temporal gyrus, consistent with sequelae of hemorrhagic contusion. No evidence of acute hemorrhage. Subarachnoid hemorrhage has resolved. Approved by: Frank Ortega M.D. on 01/12/2023 at 13:58
== END ==
PROVIDERS: PCP Family Medicine; Referring Provider Nurse Practitioner Family; Visit Provider Nurse Practitioner Family
DX: G93.89 Other specified disorders of brain (principal); S06.5XAA Traumatic subdural hemorrhage with loss of consciousness status unknown, initial encounter; G93.6 Cerebral edema; Z78.9 Other specified health status
CPT/HCPCS: 70450

== ENCOUNTER → 2023-05-01 07:57 | Outpatient (CLI) | payer MEDICARE, OTHER, SELFPAY ==
[2022-12-27 08:46] VITALS: BMI 27.3
[2023-05-01 09:10] LABS: Cholesterol 153 mg/dL (140-199); HDL Cholesterol 61 mg/dL (40-60); LDL Cholesterol Calculated 79 mg/dL (<100); Triglycerides 65 mg/dL (35-150)
== END ==
PROVIDERS: PCP Family Medicine; Referring Provider Internal Medicine Cardiovascular Disease; Visit Provider Internal Medicine Cardiovascular Disease
DX: E78.5 Hyperlipidemia, unspecified (principal)
CPT/HCPCS: 36415; 80061

== ENCOUNTER → 2023-08-29 08:34 | Outpatient (CLI) | payer MEDICARE, OTHER, SELFPAY ==
[2022-12-27 08:46] VITALS: BMI 27.3
[2023-08-29 10:11] LABS: Cholesterol 133 mg/dL (140-199); HDL Cholesterol 59 mg/dL (40-60); LDL Cholesterol Calculated 61 mg/dL (<100); Triglycerides 63 mg/dL (35-150)
[2023-08-29 10:21] LABS: Hemoglobin A1C% w Est Avg Glu 5.4 % (4.0-6.0)
[2023-08-29 11:55] LABS: Hep C Virus Ab w/Reflex Quant NEGATIVE s/c (NEGATIVE)
== END ==
PROVIDERS: PCP Family Medicine; Referring Provider Internal Medicine Cardiovascular Disease; Visit Provider Internal Medicine Cardiovascular Disease
DX: Z12.5 Encounter for screening for malignant neoplasm of prostate (principal); Z11.59 Encounter for screening for other viral diseases; R73.01 Impaired fasting glucose; E78.5 Hyperlipidemia, unspecified
CPT/HCPCS: 36415; 80061; 83036; 86803; G0103

== ENCOUNTER → 2024-03-09 10:13 | Outpatient (CLI) | payer MEDICARE, OTHER, SELFPAY ==
[2022-12-27 08:46] VITALS: BMI 27.3
--- NOTE | 2024-03-09 10:15 | DI.US.S_ITS ---
PROCEDURE: US RETRO PERITONEAL LIMITED INDICATIONS: Abdominal aortic aneurysm, without rupture, unspecified TECHNIQUE: Real time scanning was performed of the aorta and iliac arteries, with image documentation. COMPARISON: [facility], CT, CT ANGIO ABD AORTA RUNOFF, 12/27/2022, 0:12. FINDINGS: Aorta: Proximal aortic diameter measures 2.3 cm. Mid-aorta measures 4.5 x 2.7 cm. Distal aortic diameter is 1.8 cm. Iliac arteries: Right common iliac artery measures 1 cm. Left common iliac artery measures 1.1 cm. IMPRESSION: Abdominal aortic aneurysm measures transverse dimension of 4.5 cm, previously 4 cm when measured similarly. Consider vascular consultation. Dictated by: Sb Marin M.D. on 03/09/2024 at 15:47 Approved by: Sb Marin M.D. on 03/09/2024 at 15:49
[2024-03-09 11:07] LABS: Hemoglobin A1C% w Est Avg Glu 5.5 % (4.0-6.0)
[2024-03-09 11:50] LABS: Alanine Aminotransferase 44 IU/L (<50); Albumin 4.5 g/dL (3.5-5.0); Albumin Globulin Ratio 1.9 (1.0-2.8); Alkaline Phosphatase 82 U/L (38-126); Aspartate Aminotransferase 35 IU/L (17-59); BUN Creatinine Ratio 14.7 (6-22); Bilirubin Total 0.7 mg/dL (0.2-1.3); Blood Urea Nitrogen 10 mg/dL (9-20); Calcium 9.6 mg/dL (8.4-10.2); Carbon Dioxide 25 mmol/L (22-32); Chloride 100 mmol/L (98-107); Estimated Glomerular Filt Rate > 60 mL/min (>60); Globulin 2.4 g/dL (1.7-4.1); Glucose 119 mg/dL (80-110); HEMOLYSIS < 15 (0-50); Potassium 5.1 mmol/L (3.4-5.1); Sodium 132 mmol/L (137-145); Total Protein 6.9 g/dL (6.3-8.2)
== END ==
PROVIDERS: PCP Family Medicine; Referring Provider Family Medicine; Visit Provider Family Medicine
DX: R73.01 Impaired fasting glucose (principal); I71.40 Abdominal aortic aneurysm, without rupture, unspecified; I10 Essential (primary) hypertension; I48.0 Paroxysmal atrial fibrillation; F10.14 Alcohol abuse with alcohol-induced mood disorder; E78.5 Hyperlipidemia, unspecified; F17.200 Nicotine dependence, unspecified, uncomplicated
CPT/HCPCS: 36415; 76775; 80053; 83036

== ENCOUNTER → 2024-03-19 11:51 | Outpatient (CLI) | payer MEDICARE, OTHER, SELFPAY ==
[2022-12-27 08:46] VITALS: BMI 27.3
[2024-03-22 18:36] LABS: Fecal Immunochemical Test Negative (Negative)
== END ==
PROVIDERS: PCP Family Medicine; Referring Provider Family Medicine; Visit Provider Family Medicine
DX: Z12.11 Encounter for screening for malignant neoplasm of colon (principal)
CPT/HCPCS: 82274

== ENCOUNTER → 2024-05-10 11:42 | Outpatient (CLI) | payer MEDICARE, OTHER, SELFPAY ==
[2022-12-27 08:46] VITALS: BMI 27.3
--- NOTE | 2024-05-10 11:44 | DI.RAD.S_ITS ---
PROCEDURE: XR LUMBAR SPINE 2-3V INDICATIONS: pain, fell 3 days ago TECHNIQUE: 3 views of the lumbar spine were acquired. COMPARISON: None. FINDINGS: Lumbar spine curvature and alignment: Normal. Bones: Severe L1 compression fracture feature 2nd fiber sent loss of vertebral height. Disc spaces: Mild L4-5 and L5-S1 degenerative disc disease. Moderate L4-5 and L5-S1 degenerative facet disease. Soft tissues: Mild ileus noted with moderate colonic stool. IMPRESSION: Severe L1 compression fracture -chronicity unknown. Degeneration. Mild ileus Dictated by: Nick Salcedo M.D. on 05/11/2024 at 9:41 Approved by: Nick Salcedo M.D. on 05/11/2024 at 9:43
== END ==
PROVIDERS: PCP Family Medicine; Referring Provider Family Medicine; Visit Provider Family Medicine
DX: S32.019A Unspecified fracture of first lumbar vertebra, initial encounter for closed fracture (principal); S30.0XXA Contusion of lower back and pelvis, initial encounter; N39.41 Urge incontinence; M51.369 Other intervertebral disc degeneration, lumbar region without mention of lumbar back pain or lower extremity pain; M51.379 Other intervertebral disc degeneration, lumbosacral region without mention of lumbar back pain or lower extremity pain; M47.816 Spondylosis without myelopathy or radiculopathy, lumbar region; M47.817 Spondylosis without myelopathy or radiculopathy, lumbosacral region; K56.7 Ileus, unspecified; W19.XXXA Unspecified fall, initial encounter
CPT/HCPCS: 72100

== ENCOUNTER → 2024-05-10 11:44 | Outpatient (CLI) | payer MEDICARE, OTHER, SELFPAY ==
[2022-12-27 08:46] VITALS: BMI 27.3
[2024-05-10 15:19] LABS: Alanine Aminotransferase 25 IU/L (<50); Albumin 4.3 g/dL (3.5-5.0); Albumin Globulin Ratio 1.5 (1.0-2.8); Alkaline Phosphatase 93 U/L (38-126); Aspartate Aminotransferase 26 IU/L (17-59); BUN Creatinine Ratio 21.5 (6-22); Blood Urea Nitrogen 14 mg/dL (9-20); Calcium 9.4 mg/dL (8.4-10.2); Carbon Dioxide 26 mmol/L (22-32); Chloride 85 mmol/L (98-107); Estimated Glomerular Filt Rate > 60 mL/min (>60); Globulin 2.8 g/dL (1.7-4.1); Glucose 112 mg/dL (80-110); HEMOLYSIS < 15 (0-50); Potassium 3.6 mmol/L (3.4-5.1); Sodium 121 mmol/L (137-145); Total Protein 7.1 g/dL (6.3-8.2)
== END ==
PROVIDERS: PCP Family Medicine; Referring Provider Nurse Practitioner; Visit Provider Nurse Practitioner
DX: S32.019A Unspecified fracture of first lumbar vertebra, initial encounter for closed fracture (principal); S30.0XXA Contusion of lower back and pelvis, initial encounter; I10 Essential (primary) hypertension; N39.41 Urge incontinence; M51.369 Other intervertebral disc degeneration, lumbar region without mention of lumbar back pain or lower extremity pain; M51.379 Other intervertebral disc degeneration, lumbosacral region without mention of lumbar back pain or lower extremity pain; M47.816 Spondylosis without myelopathy or radiculopathy, lumbar region; M47.817 Spondylosis without myelopathy or radiculopathy, lumbosacral region; W19.XXXA Unspecified fall, initial encounter
CPT/HCPCS: 36415; 72100; 80053

== ENCOUNTER → 2024-05-11 10:47 | Outpatient (CLI) | payer MEDICARE, OTHER, SELFPAY ==
[2024-05-11 08:30] VITALS: BMI 27.3
[2024-05-11 11:21] LABS: Appearance Urine UA CLEAR; Bilirubin Urine UA 1+ (NEGATIVE); Color Urine UA YELLOW; Glucose Urine UA NEGATIVE (Negative); Ketones Urine UA 3+ (NEGATIVE); Leukocyte Esterase Urine UA NEGATIVE (NEGATIVE); Nitrite Urine UA NEGATIVE (Negative); Occult Blood Urine UA NEGATIVE (Negative); Protein Urine UA NEGATIVE (Negative)
[2024-05-11 12:40] LABS: Ictotest Urine Negative (Negative)
== END ==
PROVIDERS: PCP Family Medicine; Referring Provider Family Medicine; Visit Provider Family Medicine
DX: S30.0XXA Contusion of lower back and pelvis, initial encounter (principal); N39.41 Urge incontinence; W19.XXXA Unspecified fall, initial encounter
CPT/HCPCS: 81003

== ENCOUNTER 2024-05-11 17:30 | Inpatient (IN) | payer MEDICARE, OTHER, SELFPAY ==
[2024-05-11] VITALS (11 sets, daily range): BP systolic 95–116; BP diastolic 60–77; PULSE 68–169; RESP 12–22; TEMP 36.6; O2SAT 94–96; BMI 27.3; BMI 26.6
--- NOTE | 2024-05-11 18:00 | DI.RAD.S_ITS ---
PROCEDURE: XR CHEST 1V INDICATIONS: altered mental status TECHNIQUE: One view of the chest was acquired. COMPARISON: [facility], CR, XR CHEST 1V, 12/26/2022, 22:39. FINDINGS: Surgical changes and devices: None. Lungs and pleura: Lungs are clear. No pleural effusions or pneumothorax. Mediastinum: Mediastinal contours appear normal. Heart size is normal. Bones and chest wall: No suspicious bony lesions. Overlying soft tissues appear unremarkable. IMPRESSION: No acute cardiopulmonary abnormalities or focal consolidation. Dictated by: Saul Rosario M.D. on 05/11/2024 at 19:24 Approved by: Saul Rosario M.D. on 05/11/2024 at 19:24
--- NOTE | 2024-05-11 18:24 | EKG_ITS ---
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
--- NOTE | 2024-05-11 18:39 | EKG_ITS ---
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
[2024-05-11 18:40] LABS: Add Manual Diff / Slide Review NO; Basophils Absolute Auto 100 /uL (0-100); Basophils Percent Auto 0.4 % (0-2); Eosinophils Absolute Auto 100 /uL (0-450); Eosinophils Percent Auto 0.6 % (2-4); Hematocrit 42.3 % (41-53); Hemoglobin 14.9 g/dL (13.5-17.5); Lymphocytes Absolute Auto 1400 /uL (1100-4500); Lymphocytes Percent Auto 8.8 % (25-40); Mean Corpuscular HGB Conc 35.2 % (30-36); Mean Corpuscular Hemoglobin 32.7 PG (26-34); Mean Corpuscular Volume 92.9 fL (80-100); Monocytes Absolute Auto 1800 /uL (0-900); Monocytes Percent Auto 10.8 % (3-14); Neutrophils Absolute Auto 13100 /uL (1500-7000); Neutrophils Percent Auto 79.4 % (50-75); Platelet Count 344 X10^3/uL (150-400); Red Blood Cell Count 4.55 X10^6/uL (4.5-5.9); Red Cell Distribution Width 13.4 % (11.6-14.8); White Blood Cell Count 16.5 X10^3/uL (4.5-11.0)
--- NOTE | 2024-05-11 18:46 | PC.NURSE ---
Patient was found to be in rapid AFIB when performing EKG @ 1824, HR 164. Patient did not have elevated HR during triage. Provider notified of rapid afib but appeared to self convert out of afib, repeat EKG @ 1839 showed SR with HR 88. Provider notified of change. Patient with hx of paroxysmal afib, not on thinners.
[2024-05-11 19:01] LABS: Alanine Aminotransferase 27 IU/L (<50); Albumin 4.3 g/dL (3.5-5.0); Albumin Globulin Ratio 1.6 (1.0-2.8); Alkaline Phosphatase 84 U/L (38-126); Aspartate Aminotransferase 29 IU/L (17-59); BUN Creatinine Ratio 26.3 (6-22); Bilirubin Total 0.9 mg/dL (0.2-1.3); Blood Urea Nitrogen 20 mg/dL (9-20); Calcium 9.1 mg/dL (8.4-10.2); Carbon Dioxide 26 mmol/L (22-32); Chloride 85 mmol/L (98-107); Estimated Glomerular Filt Rate > 60 mL/min (>60); Globulin 2.7 g/dL (1.7-4.1); Glucose 117 mg/dL (80-110); HEMOLYSIS < 15 (0-50); Potassium 3.2 mmol/L (3.4-5.1); Sodium 122 mmol/L (137-145)
[2024-05-11 19:06] LABS: Creatine Kinase 175 U/L (55-170)
[2024-05-11 19:19] LABS: NT-proBNP (BNP-Adult 18+) 173 pg/mL (<125); Troponin I 0.081 ng/mL (0.01-0.034)
[2024-05-11] MEDS: SODIUM CHLORIDE 0.9% 500 ML 1000 ML IV (20:45)
--- NOTE | 2024-05-11 21:17 | ED_ITS ---
HPI - Recheck/Abnormal Lab/Rx General Chief Complaint: Recheck/Abnormal Lab/Rx Stated Complaint: Fell down stairs, back injury Time Seen by Provider: 05/11/24 18:36 Source: patient, RN notes reviewed and old records reviewed Limitations: no limitations History of Present Illness HPI narrative: 68-year-old male history of paroxysmal atrial fibrillation, abdominal aortic aneurysm, chronic alcohol use, hypertension, dyslipidemia presents with complaint of hyponatremia found on outpatient labs and new urinary retention. Patient states 4 days ago he fell. He does not recall exactly what happened but states he was looking up at some ingram and ended up on the ground. He states since then he has had some lower lumbar pain. States no pain radiating down his legs no paresthesias, had urinary retention today for the 1st time, has had some issues with bladder control or urgency in the past when started on chlorthalidone in March 09 but states that got better after the medication was stopped. Denies fevers or chills. No chest pain, no shortness of breath, no lightheadedness or passing out. Patient denies any recent dizziness. Patient had outpatient x-ray today as well as labs and was told to come to the ED if he had any other new changes. Patient states he has had prior tonsils and adenoids removed no prior back surgeries. Denies allergies to medications. Does smoke daily about a pack, drinks 3-5 alcoholic drinks daily, has been drinking only 2 or 3 the last several days, uses denies any IV drugs. Patient is accompanied by his . Related Data Home Medications Medication Instructions Recorded Confirmed fluticasone propionate [Flonase] 1 spray mucous membrane PRN PRN 07/17/22 05/12/24 Allergic Symptoms guaifenesin 600 mg tablet, 600 mg PO DAILY 02/27/24 05/12/24 extended release 12 hr (Mucus Relief ER) aspirin 81 mg tablet,delayed 81 mg PO DAILY 05/10/24 05/12/24 release (Adult Aspirin Regimen) Claritin 10 mg PO DAILY 05/12/24 05/12/24 Previous Rx's Medication Instructions Recorded folic acid 1 mg tablet 1 mg PO DAILY #30 tabs 12/28/22 multivitamin with folic acid 400 1 tab PO DAILY #30 tabs 12/28/22 mcg tablet (Tab-A-Abraham) thiamine mononitrate (vit B1) 100 100 mg PO DAILY #30 tabs 12/28/22 mg tablet atorvastatin 40 mg tablet (Lipitor) 40 mg PO BEDTIME cholesterol #90 07/04/23 tabs fluoxetine 20 mg capsule (Prozac) 20 mg PO DAILY #90 caps 07/04/23 losartan 50 mg tablet 50 mg PO DAILY blood pressure #90 02/23/24 tabs Allergies Allergy/AdvReac Type Severity Reaction Status Date / Time No Known Drug Allergies Allergy Verified 05/10/24 11:07 Review of Systems Review of Systems ROS Unobtainable: All systems reviewed & are unremarkable except as noted in HPI and below Patient History Medical History Benign essential HTN Family history of dementia Paroxysmal A-fib Alcohol abuse with alcohol-induced mood disorder IFG (impaired fasting glucose) Encounter for subsequent annual wellness visit (AWV) in Medicare patient Abdominal aortic aneurysm Subdural hematoma Major depression, single episode Hyperlipidemia Hepatitis A (~1965) Hemorrhoid (~1984) Grieving Syncope Tobacco dependence Surgical History Anesthesia History of rectal surgery (~1984) History of bunionectomy (~1974) History of tonsillectomy and adenoidectomy (~1965) Family History Father History of heart disease Mother Alzheimer's dementia Social History household members: spouse Smoking Status: Current every day smoker alcohol intake: current Smoking Status: Current every day smoker tobacco type: cigarettes alcohol intake frequency: 3 or more drinks per day Alcohol type: beer Substance Use Type: marijuana Exam Narrative Exam Narrative: GENERAL: Alert and oriented x three, mild distress HEENT: Head normocephalic, atraumatic, EOMI, pupils reactive, face symmetric, moist mucous membranes NECK: Supple, full range of motion CARDIOVASCULAR: Regular rate and rhythm without murmurs, rubs or gallops. RESPIRATORY: Breath sounds equal bilaterally, no wheezes rales or rhonchi. ABDOMEN: Soft, nontender. Normoactive bowel sounds all 4 quadrants. No guarding or rebound, rigidity, no mass : No CVA tenderness BACK: No cervical, thoracic or lumbar vertebral point tenderness. Patient has normal range of motion. Patient's gait is [antalgic/normal]. Saddle anesthesia. Patient does have a Bryant cath placed. Muscle strength is 5/5 in lower extremities, DTRs are 2/4 and lower extremities. Dorsalis pedis and tibialis pulses are 2+ and lower extremities. Sensation is intact in the lower extremities. EXTREMITIES: Normal range of motion, no clubbing or edema. Neurovascularly intact NEUROLOGICAL: Cranial nerves II through XII grossly intact. Moving all extremities SKIN: Warm, dry, no petechiae, no rashes or lesions. Initial Vital Signs Initial Vital Signs: Vital Signs Temperature 98 F 05/11/24 17:47 Pulse Rate 79 05/11/24 17:47 Respiratory Rate 16 05/11/24 17:47 Blood Pressure 105/61 05/11/24 17:47 Pulse Oximetry 96 05/11/24 17:47 Oxygen Delivery Method Room Air 05/11/24 17:47 Course Orders Ordered: ED Orders 05/11/24 20:31 Troponin I Stat 05/11/24 21:38 CT angio chest abdomen pelvis Stat Acetaminophen (Acetaminophen 325 Mg Tablet) 650 mg PO Q6H PRN PRN Reason: Fever/Mild Pain (1-3) Last Admin: 05/12/24 02:54 Dose: 650 mg Documented By: CT Enoxaparin Sodium (Enoxaparin 40 Mg/0.4 Ml Syringe) 40 mg SUBCUT DAILY MULU Naloxone HCl (Naloxone 0.4 Mg/Ml Vial) 0.2 mg IV Q2MIN PRN PRN Reason: Opiate Reversal Sennosides (Sennosides 8.6 Mg Tablet) 17.2 mg PO BEDTIME MULU Discontinued Medications Sodium Chloride (Normal Saline 0.9%) 500 mls @ 1,000 mls/hr IV BOLUS ONE Stop: 05/11/24 21:10 Last Infusion: 05/11/24 21:15 Dose: Infused Documented By: Admin: 05/11/24 20:45 Dose: 1,000 mls/hr Documented By: RL Potassium Chloride (Potassium Chloride 20 Meq Tab) 40 meq PO NOW ONE Stop: 05/11/24 22:55 Last Admin: 05/11/24 23:05 Dose: 40 meq Documented By: RL Vital Signs Vital signs: Vital Signs - 8 hr 05/11/24 20:30 05/11/24 21:00 Pulse Rate 75 68 Respiratory Rate 22 15 Blood Pressure 113/77 107/75 Pulse Oximetry 95 95 Oxygen Delivery Method Room Air Room Air MDM - Recheck/Abnormal Lab/Rx Lab Data 05/11/24 18:29 05/11/24 18:29 Labs: Lab Results 05/11/24 05/11/24 05/11/24 Range/Units 02:14 18:29 18:37 WBC 16.5 H (4.5-11.0) X10^3/uL RBC 4.55 (4.5-5.9) X10^6/uL Hgb 14.9 (13.5-17.5) g/dL Hct 42.3 (41-53) % MCV 92.9 (80-100) fL MCH 32.7 (26-34) PG MCHC 35.2 (30-36) % RDW 13.4 (11.6-14.8) % Plt Count 344 (150-400) X10^3/uL Neut % (Auto) 79.4 H (50-75) % Lymph % (Auto) 8.8 L (25-40) % Antelope % (Auto) 10.8 (3-14) % Eos % (Auto) 0.6 L (2-4) % Baso % (Auto) 0.4 (0-2) % Neut # (Auto) 39963 H (8346-6496) /uL Lymph # (Auto) 1400 (0172-9441) /uL Antelope # (Auto) 1800 H (0-900) /uL Eos # (Auto) 100 (0-450) /uL Baso # (Auto) 100 (0-100) /uL Sodium 122 L (137-145) mmol/L Potassium 3.2 L (3.4-5.1) mmol/L Chloride 85 L (98-107) mmol/L Carbon Dioxide 26 (22-32) mmol/L BUN 20 (9-20) mg/dL Creatinine 0.76 (0.66-1.25) mg/dL Estimated GFR > 60 (>60) mL/min BUN/Creatinine Ratio 26.3 H (6-22) Glucose 117 H (80-110) mg/dL Calcium 9.1 (8.4-10.2) mg/dL Magnesium 2.1 (1.6-2.3) mg/dL Total Bilirubin 0.9 (0.2-1.3) mg/dL AST 29 (17-59) IU/L ALT 27 (<50) IU/L Alkaline Phosphatase 84 (38-126) U/L Total Creatine Kinase 175 H (55-170) U/L Troponin I 0.091 H 0.081 H (0.01-0.034) ng/mL NT-Pro-B Natriuret Pep 173 H (<125) pg/mL Total Protein 7.0 (6.3-8.2) g/dL Albumin 4.3 (3.5-5.0) g/dL Globulin 2.7 (1.7-4.1) g/dL Albumin/Globulin Ratio 1.6 (1.0-2.8) 05/11/24 Range/Units 20:31 WBC (4.5-11.0) X10^3/uL RBC (4.5-5.9) X10^6/uL Hgb (13.5-17.5) g/dL Hct (41-53) % MCV (80-100) fL MCH (26-34) PG MCHC (30-36) % RDW (11.6-14.8) % Plt Count (150-400) X10^3/uL Neut % (Auto) (50-75) % Lymph % (Auto) (25-40) % Antelope % (Auto) (3-14) % Eos % (Auto) (2-4) % Baso % (Auto) (0-2) % Neut # (Auto) (8772-0027) /uL Lymph # (Auto) (1830-2477) /uL Antelope # (Auto) (0-900) /uL Eos # (Auto) (0-450) /uL Baso # (Auto) (0-100) /uL Sodium (137-145) mmol/L Potassium (3.4-5.1) mmol/L Chloride (98-107) mmol/L Carbon Dioxide (22-32) mmol/L BUN (9-20) mg/dL Creatinine (0.66-1.25) mg/dL Estimated GFR (>60) mL/min BUN/Creatinine Ratio (6-22) Glucose (80-110) mg/dL Calcium (8.4-10.2) mg/dL Magnesium (1.6-2.3) mg/dL Total Bilirubin (0.2-1.3) mg/dL AST (17-59) IU/L ALT (<50) IU/L Alkaline Phosphatase (38-126) U/L Total Creatine Kinase (55-170) U/L Troponin I 0.153 H* (0.01-0.034) ng/mL NT-Pro-B Natriuret Pep (<125) pg/mL Total Protein (6.3-8.2) g/dL Albumin (3.5-5.0) g/dL Globulin (1.7-4.1) g/dL Albumin/Globulin Ratio (1.0-2.8) Imaging Data CTA chest/abd/pelvis: Radiologist's Impression: Ibrahima Solorzano??He/Him/His??68??M??1955 ? Allergy/Adv: No Known Drug Allergies (More??) Close Chest/Abdomen/Pelvis CTA (Signed) Jonathan Stoner - 05/11/24 Chest X-Ray (Signed) MarleneSaul - 05/11/24 Lumbar Spine X-Ray (Signed) Nick Salcedo - 05/10/24 Retroperitoneum Ultrasound (Signed) Sb Marin - 03/09/24 DI Result CC 05/02/[address] (Signed) Frank Ortega - 01/12/[address] (Signed) Sarah Langley - 12/28/22 Telemetry Strips 12/27/22 Brain MRI (Signed) Robb Ashley - 12/27/22 Echocardiogram Ultrasound (Signed) Jasson Grayson - 12/27/22 Aorta w/Runoff CTA (Signed) FlorFreddy pierre - 12/26/22 Chest X-Ray (Signed) Flor,Freddy - 12/26/[address] (Signed) FlorFreddy pierre - 12/26/[address] (Signed) Flor,Freddy - 12/26/[address] (Signed) Flor,Freddy - 12/26/22 PFT Result 07/09/22 Launch?[address] [address] [address] Scan Report Signed Patient: Ibrahima Solorzano MR#: [id number] : 1955 Acct:[id number] Age/Sex: 68 / M Date of Service: 05/11/24 Loc: ED Accession Number: [id number] Procedure: CT angio chest abdomen pelvis Ordering Provider: Mayte Vincent D.O. PROCEDURE: CT ANGIO CHEST ABDOMEN PELVIS INDICATIONS: back pain, L1 compression fx, + trop , hx AAA, no cp TECHNIQUE: Precontrast 5 mm thick sections acquired from the lung apices to the iliac crests. After the administration of intravenous contrast, 2.5 mm thick sections again acquired from the lung apices to the iliac crests. Maximum intensity projection (MIP) oblique sagittal and coronal reformats were then acquired. For radiation dose reduction, the following was used: automated exposure control. COMPARISON: [facility], CT, CT ANGIO ABD AORTA RUNOFF, 12/27/2022, 0:12. FINDINGS: Image quality: Diagnostic. AORTA: No acute aortic syndrome. Atherosclerotic vascular calcifications. Stable aneurysmal dilatation of the infrarenal abdominal aorta measuring up to 4 x 3 cm. CHEST: Lower Neck: No enlarged lymph nodes. Thyroid: No thyroid nodules which require sonographic evaluation. Axillae: No enlarged lymph nodes. Chest Wall: Unremarkable. Lungs and Pleura: No pneumothorax or pleural effusions. Emphysematous changes. No focal pulmonary consolidations. Heart: Heart size is normal. No pericardial effusion. Thoracic Vessels: Pulmonary arteries demonstrate normal size. Mediastinum and [place]anna: No enlarged lymph nodes. Esophagus: No wall thickening. No hiatal hernia. ABDOMEN: Liver: No solid mass. Gallbladder: No radiopaque gallstones or wall thickening. Biliary ducts: No biliary dilation. Pancreas: No ductal dilation. Spleen: Size is within normal limits. Adrenal Glands: No adrenal nodules. Kidneys and Ureters: No hydronephrosis. No solid mass. No complex renal cystic lesion which requires follow up. Stomach and Bowel: Normal colonic caliber, without significant wall thickening. Diverticulosis without evidence of acute diverticulitis. Colon is partially fluid-filled. Normal appendix. Peritoneum: No abnormal intraperitoneal fluid. No free air. Ventral Wall: No hernia. Abdominal Nodes: No retroperitoneal or mesenteric adenopathy by size criteria. Vessels: Inferior vena cava is normal in size. PELVIS: Pelvic Organs: Prostatomegaly. Bladder: Decompressed with a Bryant catheter in place, limiting evaluation. Pelvic Nodes: No enlarged lymph nodes. Miscellaneous: No inguinal hernias are seen. Bones: Mild displaced fracture of the left 2nd and 3rd transverse processes. Again seen severe compression deformity of the L1 vertebral body. Subacute appearing left lateral 9th rib fracture. Degenerative changes of the spine. IMPRESSION: 1. No acute aortic syndrome. 2. Stable aneurysmal dilatation of the infrarenal abdominal aorta measuring up to 4 cm. 3. Mildly displaced fractures of the left 2nd and 3rd transverse processes. Severe compression deformity of the L1 vertebral body. 4. Subacute appearing left lateral 9th rib fracture. 5. Diverticulosis without evidence of acute diverticulitis. 6. Colon is partially fluid-filled, may represent a rapid transit state or colitis. Recommend clinical correlation. 7. Prostatomegaly. Dictated by: Jonathan Stoner M.D. on 05/11/2024 at 22:27 Approved by: Jonathan Stoner M.D. on 05/11/2024 at 22:39 ECG Data Attestation: I personally reviewed and interpreted this ECG as follows: Interpretation: AFib with rapid ventricular response rate of 164, QRS is 74 QTC of 462, nonspecific ST change. EKG 2. Shows sinus rhythm with the occasional premature atrial complexes but does show a P wave with each QRS, rate 88 NM 126 QRS 80 QTC of 438 MDM Narrative Medical decision making narrative: Labs show white count of 16.5 appears to be persistently elevated since December, hemoglobin of 14.9 platelets are 330 neutrophils are 79%. Sodium is 122, was 121 earlier today was [address] [place], potassium 3.2 chloride 85 CO2 is 26 BUN 22 creatinine 0.76, glucose is 117 LFTs are negative. Patient had a run of AFib with RVR, troponin was added on was 0.081 with a BNP of 173 and a CK of 175. Troponin was repeated and is positive at 0.153. Urine shows 3+ ketones 1+ bilirubin negative for leuks no nitrates. Chest x-ray shows no acute change Lumbar x-ray shows severe L1 compression fracture chronicity unknown degeneration and mild ileus this was obtained this morning prior to his ED visit. 68-year-old male history of hypertension dyslipidemia chronic alcohol use who presents with complaint of hyponatremia but also urinary retention, patient had a fall 4 days ago found to have an L1 compression fracture on x-ray outpatient earlier today. He does not have any other acute changes. Patient's repeat troponin was positive maybe related to his AFib RVR episode but patient does have a known AAA he has no chest pain or shortness of breath today at any point but has had back pain so will change from L-spine CT as I am unable to get an L-spine MRI at this time and I anyway but include CT angio to evaluate for changes to his AAA. CT angio shows no acute aortic syndrome stable aneurysm dilation infrarenal abdominal aorta measuring up to 4 cm. Patient notes they are monitoring this until he gets to 5 cm mildly displaced fractures left 2nd and 3rd transverse processes and severe compression deformity of L1 vertebral body. Subacute appearing left lateral 9th rib fracture diverticulosis without evidence of diverticulitis colon is partially fluid-filled they represent rapid transient state or colitis. Prostatomegaly. Spoke with orthopedic surgery, Dr. Presley, discussed findings from CT imaging patient's only symptom he does have pain but does not radiate down his legs does not have paresthesias but did have a new acute urinary retention today. He states he has not suspicious for compression or cauda equina does not feel patient requires MR. If patient ends up being admitted they can consult as needed. Asked that we put in formal consult if necessary but is otherwise would have patient follow up with Dr. Genao. Spoke with hospitalist for admission for hyponatremia, AFib RVR with positive troponin troponin but in the setting of no chest pain or shortness of breath patient had a an episode of transient AFib RVR. Suspect demand atrial fibrillation resolved without any intervention. Did review CT imaging patient findings with Orthopedic surgery and relayed these as well. Discharge Plan Departure Patient Disposition: Admitted as Observation Clinical Impression: Atrial fibrillation with rapid ventricular response, Hypokalemia, Closed compression fracture of L1 vertebra Lumbar transverse process fracture Qualifiers: Encounter type: initial encounter Fracture type: closed Qualified Code(s): S 32.009A - Unspecified fracture of unspecified lumbar vertebra, initial encounter for closed fracture Admit Date/Time: 05/11/24 23:42 Admit Provider: Darshan Nichole
[2024-05-11 21:35] LABS: Troponin I 0.153 ng/mL (0.01-0.034)
--- NOTE | 2024-05-11 21:38 | DI.CT.S_ITS ---
PROCEDURE: CT ANGIO CHEST ABDOMEN PELVIS INDICATIONS: back pain, L1 compression fx, + trop , hx AAA, no cp TECHNIQUE: Precontrast 5 mm thick sections acquired from the lung apices to the iliac crests. After the administration of intravenous contrast, 2.5 mm thick sections again acquired from the lung apices to the iliac crests. Maximum intensity projection (MIP) oblique sagittal and coronal reformats were then acquired. For radiation dose reduction, the following was used: automated exposure control. COMPARISON: [facility], CT, CT ANGIO ABD AORTA RUNOFF, 12/27/2022, 0:12. FINDINGS: Image quality: Diagnostic. AORTA: No acute aortic syndrome. Atherosclerotic vascular calcifications. Stable aneurysmal dilatation of the infrarenal abdominal aorta measuring up to 4 x 3 cm. CHEST: Lower Neck: No enlarged lymph nodes. Thyroid: No thyroid nodules which require sonographic evaluation. Axillae: No enlarged lymph nodes. Chest Wall: Unremarkable. Lungs and Pleura: No pneumothorax or pleural effusions. Emphysematous changes. No focal pulmonary consolidations. Heart: Heart size is normal. No pericardial effusion. Thoracic Vessels: Pulmonary arteries demonstrate normal size. Mediastinum and Roseanna: No enlarged lymph nodes. Esophagus: No wall thickening. No hiatal hernia. ABDOMEN: Liver: No solid mass. Gallbladder: No radiopaque gallstones or wall thickening. Biliary ducts: No biliary dilation. Pancreas: No ductal dilation. Spleen: Size is within normal limits. Adrenal Glands: No adrenal nodules. Kidneys and Ureters: No hydronephrosis. No solid mass. No complex renal cystic lesion which requires follow up. Stomach and Bowel: Normal colonic caliber, without significant wall thickening. Diverticulosis without evidence of acute diverticulitis. Colon is partially fluid-filled. Normal appendix. Peritoneum: No abnormal intraperitoneal fluid. No free air. Ventral Wall: No hernia. Abdominal Nodes: No retroperitoneal or mesenteric adenopathy by size criteria. Vessels: Inferior vena cava is normal in size. PELVIS: Pelvic Organs: Prostatomegaly. Bladder: Decompressed with a Bryant catheter in place, limiting evaluation. Pelvic Nodes: No enlarged lymph nodes. Miscellaneous: No inguinal hernias are seen. Bones: Mild displaced fracture of the left 2nd and 3rd transverse processes. Again seen severe compression deformity of the L1 vertebral body. Subacute appearing left lateral 9th rib fracture. Degenerative changes of the spine. IMPRESSION: 1. No acute aortic syndrome. 2. Stable aneurysmal dilatation of the infrarenal abdominal aorta measuring up to 4 cm. 3. Mildly displaced fractures of the left 2nd and 3rd transverse processes. Severe compression deformity of the L1 vertebral body. 4. Subacute appearing left lateral 9th rib fracture. 5. Diverticulosis without evidence of acute diverticulitis. 6. Colon is partially fluid-filled, may represent a rapid transit state or colitis. Recommend clinical correlation. 7. Prostatomegaly. Dictated by: Jonathan Stoner M.D. on 05/11/2024 at 22:27 Approved by: Jonathan Stoner M.D. on 05/11/2024 at 22:39
[2024-05-11] MEDS: POTASSIUM CHLORIDE 20 MEQ TAB 40 MEQ PO (23:05)
--- NOTE | 2024-05-11 23:50 | DI.ECHO.S_ITS ---
[facility] : : [id number] : : [place] : : [id number] : : Phone: [phone] Echocardiogram Report + :Name: MAXIM MCINTYRE Study Date: 05/12/2024 Height: 72 in : :Hospital ReadingLocation: Weight: 196 lb : : Gender: Male BSA: 2.1 m2 : :: 1955 Age: 68 yrs BP: 103/64 mmHg: :Reason For Study: ELEVATED TROPONIN : :Ordering Physician: MORGAN : :YEE BAILEY Performed By: Eduarda Quintero : :Referring: YEE TEMPLE : + Interpretation Summary The ejection fraction is estimated to be 60-65%. There is borderline mitral valve prolapse. There is mild mitral regurgitation. There is mild to moderate tricuspid regurgitation. The right ventricular systolic pressure is estimated to be at least 29 mmHg based on an estimated right atrial pressure of 8 mm Hg. There is no pericardial effusion. Procedure: A two-dimensional transthoracic echocardiogram with color flow and Doppler was performed. The study quality was technically adequate. Comparison is made with the echocardiogram of 12/27/2022. The patient was in sinus rhythm with heart rates between 61-66 bpm during the exam. Short run of tachycardia Image #70 reaching up to 145bpm. Left Ventricle: The left ventricle is normal in size and wall thickness. The ejection fraction is estimated to be 60-65%. Left ventricular wall motion is normal. Right Ventricle: The right ventricle is normal in size and function. Atria: The left atrial size is normal. Right atrial size is normal. There is no Doppler evidence for an interatrial shunt. Mitral Valve: There is borderline mitral valve prolapse. There is mild mitral regurgitation. Aortic Valve: The aortic valve is trileaflet. The aortic valve opens well. There is no aortic valve stenosis. There is trace aortic regurgitation. Tricuspid Valve: The tricuspid valve is normal in structure and function. There is mild to moderate tricuspid regurgitation. The right ventricular systolic pressure is estimated to be at least 29 mmHg based on an estimated right atrial pressure of 8 mm Hg. Pulmonic Valve: The pulmonic valve is not well seen, but is grossly normal. There is trace pulmonic regurgitation. Great Vessels: The aortic root is normal size. The dimensions of the ascending aorta are normal. The IVC is dilated (diameter is greater than 2.1 cm) yet it collapses greater than 50% with a sniff. This suggests a right atrial pressure of 8 mm Hg. Pericardium/ Pleura There is no pericardial effusion. There is no pleural effusion. MMode/2D Measurements & Calculations LVIDd: 5.0 cm LVOT diam: 2.2 cm LVIDs: 3.6 cm Ao root diam: 3.6 cm FS: 28.0 % asc Aorta Diam: 3.7 cm EPSS: 0.81 cm IVSd: 1.1 cm LVPWd: 0.89 cm LV aleman. diameter/BSA (cm/m^2): 2.4 LV sys. diameter/BSA (cm/m^2): 1.7 LA A2 area: 20.2 cm2 RA long axis: 5.6 cm LA A4 area: 18.7 cm2 RA area: 17.6 cm2 LA length (vol): 5.3 cm RA vol: 46.6 ml LA vol: 60.8 ml RA : 22.0 ml/m2 LA vol index: 28.8 ml/m2 IVC diam: 2.2 cm RVD1 (basal): 3.7 cm RVD2 (mid): 2.8 cm TAPSE: 2.0 cm Doppler Measurements & Calculations Ao V2 max: 145.5 cm/sec LVOT Max Chacorta: 106.4 cm/sec Ao V2 mean: 97.5 cm/sec LV V1 max P.5 mmHg Ao max P.5 mmHg LV V1 VTI: 21.0 cm Ao mean P.3 mmHg JAMES(I,D): 2.7 cm2 Ao V2 VTI: 30.1 cm JAMES(V,D): 2.8 cm2 sev ratio: 0.70 JAMES indexed to BSA (cm^2/m^2): 1.3 MV E max chacorta: 66.7 cm/sec TR max chacorta: 250.5 cm/sec MV A max chacorta: 59.7 cm/sec TR max P.1 mmHg MV E/A: 1.1 PA V2 max: 97.0 cm/sec Med Peak E' Chacorta: 6.9 cm/sec PA V2 mean: 74.6 cm/sec E/E' med: 9.7 PA mean P.3 mmHg Lat Peak E' Chacorta: 8.7 cm/sec PA pr(Accel): 32.8 mmHg E/E' lat: 7.6 E/e' average: 8.7 MV dec time: 0.21 sec SVLVOT): 80.5 ml Reading Physician:01:56 PM
[2024-05-12] VITALS (7 sets, daily range): BP systolic 103–138; BP diastolic 64–99; PULSE 66–81; RESP 15–18; TEMP 36.6–37.6; O2SAT 94–98; BMI 26.6
[2024-05-12] MEDS: ACETAMINOPHEN 325 MG TABLET 650 MG PO ×3 (02:54→18:57)
[2024-05-12] MEDS: SODIUM CHLORIDE 0.9% 1,000 ML 100 ML IV ×3 (05:08→22:40)
[2024-05-12 05:30] LABS: Magnesium 2.1 mg/dL (1.6-2.3); Troponin I 0.091 ng/mL (0.01-0.034)
[2024-05-12 05:40] LABS: Cholesterol 105 mg/dL (140-199); HDL Cholesterol 47 mg/dL (40-60); LDL Cholesterol Calculated 45 mg/dL (<100); Triglycerides 65 mg/dL (35-150)
[2024-05-12 06:29] LABS: Add Manual Diff / Slide Review NO; Basophils Absolute Auto 100 /uL (0-100); Basophils Percent Auto 0.4 % (0-2); Eosinophils Absolute Auto 100 /uL (0-450); Hematocrit 38.9 % (41-53); Hemoglobin 13.9 g/dL (13.5-17.5); Lymphocytes Absolute Auto 1400 /uL (1100-4500); Lymphocytes Percent Auto 11.1 % (25-40); Mean Corpuscular HGB Conc 35.7 % (30-36); Mean Corpuscular Hemoglobin 32.9 PG (26-34); Mean Corpuscular Volume 92.2 fL (80-100); Monocytes Absolute Auto 1400 /uL (0-900); Monocytes Percent Auto 10.7 % (3-14); Neutrophils Absolute Auto 9900 /uL (1500-7000); Neutrophils Percent Auto 76.8 % (50-75); Platelet Count 319 X10^3/uL (150-400); Red Blood Cell Count 4.22 X10^6/uL (4.5-5.9); Red Cell Distribution Width 13.2 % (11.6-14.8)
--- NOTE | 2024-05-12 07:01 | P.HP_ITS ---
History of Present Illness History of Present Illness Date Patient Seen: 05/12/24 Chief complaint: Fell down stairs, back injury Narrative: 68-year-old male history of paroxysmal atrial fibrillation, abdominal aortic aneurysm, chronic alcohol use, hypertension, dyslipidemia presents with complaint of hyponatremia found on outpatient labs and new urinary retention. 4 days ago he fell and sustained L1 compression fracture and L2 and L3 Rt transverse processes fractures and complains on difficulty ambulating with a cane, low back pain without radiculopathy and constipation. In the ED had transient PAF, hyponatremic, hypokalemic with elevated troponin. [facility] Medical History Benign essential HTN Family history of dementia Paroxysmal A-fib Alcohol abuse with alcohol-induced mood disorder IFG (impaired fasting glucose) Encounter for subsequent annual wellness visit (AWV) in Medicare patient Abdominal aortic aneurysm Subdural hematoma Major depression, single episode Hyperlipidemia Hepatitis A (~1965) Hemorrhoid (~1984) Grieving Syncope Tobacco dependence Surgical History Anesthesia History of rectal surgery (~1984) History of bunionectomy (~1974) History of tonsillectomy and adenoidectomy (~1965) Family History Father History of heart disease Mother Alzheimer's dementia Social History household members: spouse Smoking Status: Current every day smoker alcohol intake: current Meds Home Medications and Allergies Home Medications Medication Instructions Recorded Confirmed Type fluticasone propionate [Flonase] 1 spray mucous membrane PRN PRN 07/17/22 05/12/24 History Allergic Symptoms folic acid 1 mg tablet 1 mg PO DAILY #30 tabs 12/28/22 05/12/24 Rx multivitamin with folic acid 400 1 tab PO DAILY #30 tabs 12/28/22 05/12/24 Rx mcg tablet (Tab-A-Abraham) thiamine mononitrate (vit B1) 100 100 mg PO DAILY #30 tabs 12/28/22 05/12/24 Rx mg tablet atorvastatin 40 mg tablet (Lipitor) 40 mg PO BEDTIME cholesterol #90 07/04/23 05/12/24 Rx tabs fluoxetine 20 mg capsule (Prozac) 20 mg PO DAILY #90 caps 07/04/23 05/12/24 Rx losartan 50 mg tablet 50 mg PO DAILY blood pressure #90 02/23/24 05/12/24 Rx tabs guaifenesin 600 mg tablet, 600 mg PO DAILY 02/27/24 05/12/24 History extended release 12 hr (Mucus Relief ER) aspirin 81 mg tablet,delayed 81 mg PO DAILY 05/10/24 05/12/24 History release (Adult Aspirin Regimen) Claritin 10 mg PO DAILY 05/12/24 05/12/24 History Allergies Allergy/AdvReac Type Severity Reaction Status Date / Time No Known Drug Allergies Allergy Verified 05/10/24 11:07 Review of Systems Constitutional Comments: w/o fever or chills Cardiovascular Comments: w/o chest pain or palpitations Respiratory Comments: w/o shortness of breath Gastrointestinal Comments: constipated Genitourinary Comments: difficulty voiding. Chronically urinates 2-3 times on average at night Musculoskeletal Comments: low back pain Exam Vital Signs (past 8 hours): - 05/12/24 01:00 05/12/24 01:08 05/12/24 04:00 Temperature 98.0 F 97.8 F Pulse Rate 81 66 Respiratory Rate 18 16 Blood Pressure 107/81 103/64 Pulse Oximetry 98 95 Oxygen Delivery Method Room Air Oxygen Flow Rate 0 0 Oxygen Delivery Method Room Air Oxygen Flow Rate 0 Const Other: in no distress HENMT Other: normocephalic Neck Other: supple Resp Other: CTA Cardio Other: RRR Objective ECG Impression: NSR Labs 05/12/24 06:20 05/11/24 18:29 Labs: Laboratory Results - last 24 hr 05/11/24 05/11/24 05/11/24 02:14 18:29 18:37 WBC 16.5 H RBC 4.55 Hgb 14.9 Hct 42.3 MCV 92.9 MCH 32.7 MCHC 35.2 RDW 13.4 Plt Count 344 Neut % (Auto) 79.4 H Lymph % (Auto) 8.8 L [place] % (Auto) 10.8 Eos % (Auto) 0.6 L Baso % (Auto) 0.4 Neut # (Auto) 77500 H Lymph # (Auto) 1400 [place] # (Auto) 1800 H Eos # (Auto) 100 Baso # (Auto) 100 Sodium 122 L Potassium 3.2 L Chloride 85 L Carbon Dioxide 26 BUN 20 Creatinine 0.76 Estimated GFR > 60 BUN/Creatinine Ratio 26.3 H Glucose 117 H Calcium 9.1 Magnesium Cancelled Total Bilirubin 0.9 AST 29 ALT 27 Alkaline Phosphatase 84 Total Creatine Kinase 175 H Troponin I Cancelled 0.081 H NT-Pro-B Natriuret Pep 173 H Total Protein 7.0 Albumin 4.3 Globulin 2.7 Albumin/Globulin Ratio 1.6 Triglycerides Cholesterol LDL Cholesterol, Calc HDL Cholesterol 05/11/24 05/12/24 05/12/24 20:31 02:14 06:20 WBC 13.0 H RBC 4.22 L Hgb 13.9 Hct 38.9 L MCV 92.2 MCH 32.9 MCHC 35.7 RDW 13.2 Plt Count 319 Neut % (Auto) 76.8 H Lymph % (Auto) 11.1 L [place] % (Auto) 10.7 Eos % (Auto) 1.0 L Baso % (Auto) 0.4 Neut # (Auto) 9900 H Lymph # (Auto) 1400 [place] # (Auto) 1400 H Eos # (Auto) 100 Baso # (Auto) 100 Sodium Potassium Chloride Carbon Dioxide BUN Creatinine Estimated GFR BUN/Creatinine Ratio Glucose Calcium Magnesium 2.1 Total Bilirubin AST ALT Alkaline Phosphatase Total Creatine Kinase Troponin I 0.153 H* 0.091 H NT-Pro-B Natriuret Pep Total Protein Albumin Globulin Albumin/Globulin Ratio Triglycerides 65 Cholesterol 105 L LDL Cholesterol, Calc 45 HDL Cholesterol 47 Assessment & Plan Assessment and plan (1) Paroxysmal A-fib: Status: Acute (2) Elevated troponin: Status: Acute (3) Hypokalemia: Status: Acute (4) Hyponatremia: Status: Acute (5) Alcohol abuse with alcohol-induced mood disorder: Status: Acute (6) Hyperlipidemia: Qualifiers: Hyperlipidemia type: other hyperlipidemia Qualified Code(s): E78.49 - Other hyperlipidemia Status: Acute (7) Tobacco dependence: Problem details: -PFT 07/2022: minimal obstruction Status: Acute (8) Benign essential HTN: Status: Acute (9) Closed compression fracture of L1 vertebra: Status: Acute (10) Lumbar transverse process fracture: Qualifiers: Encounter type: initial encounter Fracture type: closed Qualified Code(s): S32.009A - Unspecified fracture of unspecified lumbar vertebra, initial encounter for closed fracture Status: Acute Assessment & Plan narrative: Hyponatremia - Had NS bolus 1 L in ED - continue 100 cc NS / h - BMP monitored Hypokalemia - supplemented in ED - BMP monitored Elevated Troponin / PAF / HLD - ASA, statin - telemetry monitoring - echocardiogram pending L1 compression fracture / L2/3 Rt transverse processes fracture - orthopedic consultation - pain management - consider MRI Constipation / Urinary Retention - likely from pain medications and decreased mobility and BPH - less likely neurogenic bladder or bowel - consider MRI Alcoholism / Anxiety - B1, FA, MVI - Prozac Time-Based Coding :: [TOTAL MINUTES] spent with patient and on the chart (including review of chart, obtaining history, exam, reviewing outside data, placing orders, documenting exam and treatment plan, and counseling patient) on [DATE].
[2024-05-12 07:14] LABS: HEMOLYSIS < 15 (0-50); NT-proBNP (BNP-Adult 18+) 218 pg/mL (<125)
--- NOTE | 2024-05-12 07:45 | P.HP_ITS ---
History of Present Illness History of Present Illness Chief complaint: Fell down stairs, back injury Narrative: From night doctor: 68-year-old male history of paroxysmal atrial fibrillation, abdominal aortic aneurysm, chronic alcohol use, hypertension, dyslipidemia presents with complaint of hyponatremia found on outpatient labs and new urinary retention. 4 days ago he fell and sustained L1 compression fracture and L2 and L3 Rt transverse processes fractures and complains on difficulty ambulating with a cane, low back pain without radiculopathy and constipation. In the ED had transient PAF, hyponatremic, hypokalemic with elevated troponin. Additional information: The patient has a long history of alcohol use disorder. He drinks anywhere from 10-14 beers a day and has been doing so for 30+ years. He was alone over the weekend. He apparently fell outside and injured himself. His returned home after being gone for the weekend and found him to be somewhat disoriented. Upon arrival here he was found to have a rib and compression fracture. He was also found to have evidence of hyponatremia which is likely related to beer potomania. The patient also had AF with RVR which had improved without intervention. His was quite concerned about all of these symptoms of his core issue of alcohol use disorder. Does have a primary care doctor, Dr. Gallegos, in his seen Dr. Jimeenz of Cardiology in the past. The patient has no periods of sobriety. He has never indicated that he was interested in not drinking. His 's primary generalized to see if there was anything to facilitate a change in his behavior. [facility] Medical History Benign essential HTN Family history of dementia Paroxysmal A-fib Alcohol abuse with alcohol-induced mood disorder IFG (impaired fasting glucose) Encounter for subsequent annual wellness visit (AWV) in Medicare patient Abdominal aortic aneurysm Subdural hematoma Major depression, single episode Hyperlipidemia Hepatitis A (~1965) Hemorrhoid (~1984) Grieving Syncope Tobacco dependence Surgical History Anesthesia History of rectal surgery (~1984) History of bunionectomy (~1974) History of tonsillectomy and adenoidectomy (~1965) Family History Father History of heart disease Mother Alzheimer's dementia Social History household members: spouse Smoking Status: Current every day smoker alcohol intake: current Meds Home Medications and Allergies Home Medications Medication Instructions Recorded Confirmed Type fluticasone propionate [Flonase] 1 spray mucous membrane PRN PRN 07/17/22 05/12/24 History Allergic Symptoms folic acid 1 mg tablet 1 mg PO DAILY #30 tabs 12/28/22 05/12/24 Rx multivitamin with folic acid 400 1 tab PO DAILY #30 tabs 12/28/22 05/12/24 Rx mcg tablet (Tab-A-Abraham) thiamine mononitrate (vit B1) 100 100 mg PO DAILY #30 tabs 12/28/22 05/12/24 Rx mg tablet atorvastatin 40 mg tablet (Lipitor) 40 mg PO BEDTIME cholesterol #90 07/04/23 05/12/24 Rx tabs fluoxetine 20 mg capsule (Prozac) 20 mg PO DAILY #90 caps 07/04/23 05/12/24 Rx losartan 50 mg tablet 50 mg PO DAILY blood pressure #90 02/23/24 05/12/24 Rx tabs guaifenesin 600 mg tablet, 600 mg PO DAILY 02/27/24 05/12/24 History extended release 12 hr (Mucus Relief ER) aspirin 81 mg tablet,delayed 81 mg PO DAILY 05/10/24 05/12/24 History release (Adult Aspirin Regimen) Claritin 10 mg PO DAILY 05/12/24 05/12/24 History Allergies Allergy/AdvReac Type Severity Reaction Status Date / Time No Known Drug Allergies Allergy Verified 05/10/24 11:07 Review of Systems Review of Systems Narrative: All else reviewed and otherwise unremarkable except as noted in the history and physical. With the following additions. He was have a history of urine retention since arrival here. He also has is a chronic history of urine frequency and nocturia. Exam Vital Signs (past 8 hours): - 05/12/24 01:00 05/12/24 01:08 05/12/24 04:00 Temperature 98.0 F 97.8 F Pulse Rate 81 66 Respiratory Rate 18 16 Blood Pressure 107/81 103/64 Pulse Oximetry 98 95 Oxygen Delivery Method Room Air Oxygen Flow Rate 0 0 Oxygen Delivery Method Room Air Oxygen Flow Rate 0 Narrative Exam Narrative: NAD, alert and oriented, fluent speech, calm. He was a little bit confused but mostly does well with his conversational elements. Normocephalic skull, EOMI, anicteric sclera, symmetric pupils. Oropharynx unremarkable, no droop. Neck supple, midline trachea, no adenopathy. Lungs clear, normal rate and effort. Heart regular, no murmur gallop or rub. Abdomen is soft, non distended and non tender. Extremities are free of edema. Skin is free of rash or lesions. Joints are not swollen or deformed. Judgment appears to be abnormal. Objective ECG Impression: Sinus rhythm with premature atrial complexes Imaging Multiple studies:: Radiologist's impression: Echo: The ejection fraction is estimated to be 60-65%. There is borderline mitral valve prolapse. There is mild mitral regurgitation. There is mild to moderate tricuspid regurgitation. The right ventricular systolic pressure is estimated to be at least 29 mmHg based on an estimated right atrial pressure of 8 mm Hg. There is no pericardial effusion. Chest abdomen and pelvis CT: 1. No acute aortic syndrome. 2. Stable aneurysmal dilatation of the infrarenal abdominal aorta measuring up to 4 cm. 3. Mildly displaced fractures of the left 2nd and 3rd transverse processes. Severe compression deformity of the L1 vertebral body. 4. Subacute appearing left lateral 9th rib fracture. 5. Diverticulosis without evidence of acute diverticulitis. 6. Colon is partially fluid-filled, may represent a rapid transit state or colitis. Recommend clinical correlation. 7. Prostatomegaly. Chest x-ray: No acute cardiopulmonary abnormalities or focal consolidation. Lumbar x-ray: Severe L1 compression fracture -chronicity unknown. Labs 05/12/24 06:20 05/12/24 06:20 Labs: Laboratory Results - last 24 hr 05/11/24 05/11/24 05/11/24 02:14 18:29 18:37 WBC 16.5 H RBC 4.55 Hgb 14.9 Hct 42.3 MCV 92.9 MCH 32.7 MCHC 35.2 RDW 13.4 Plt Count 344 Neut % (Auto) 79.4 H Lymph % (Auto) 8.8 L [place] % (Auto) 10.8 Eos % (Auto) 0.6 L Baso % (Auto) 0.4 Neut # (Auto) 39749 H Lymph # (Auto) 1400 [place] # (Auto) 1800 H Eos # (Auto) 100 Baso # (Auto) 100 Sodium 122 L Potassium 3.2 L Chloride 85 L Carbon Dioxide 26 BUN 20 Creatinine 0.76 Estimated GFR > 60 BUN/Creatinine Ratio 26.3 H Glucose 117 H Calcium 9.1 Magnesium Cancelled Total Bilirubin 0.9 AST 29 ALT 27 Alkaline Phosphatase 84 Total Creatine Kinase 175 H Troponin I Cancelled 0.081 H NT-Pro-B Natriuret Pep 173 H Total Protein 7.0 Albumin 4.3 Globulin 2.7 Albumin/Globulin Ratio 1.6 Triglycerides Cholesterol LDL Cholesterol, Calc HDL Cholesterol 05/11/24 05/12/24 05/12/24 20:31 02:14 06:20 WBC 13.0 H RBC 4.22 L Hgb 13.9 Hct 38.9 L MCV 92.2 MCH 32.9 MCHC 35.7 RDW 13.2 Plt Count 319 Neut % (Auto) 76.8 H Lymph % (Auto) 11.1 L [place] % (Auto) 10.7 Eos % (Auto) 1.0 L Baso % (Auto) 0.4 Neut # (Auto) 9900 H Lymph # (Auto) 1400 [place] # (Auto) 1400 H Eos # (Auto) 100 Baso # (Auto) 100 Sodium Potassium Chloride Carbon Dioxide BUN Creatinine Estimated GFR BUN/Creatinine Ratio Glucose Calcium Magnesium 2.1 Total Bilirubin AST ALT Alkaline Phosphatase Total Creatine Kinase Troponin I 0.153 H* 0.091 H NT-Pro-B Natriuret Pep 218 H Total Protein Albumin Globulin Albumin/Globulin Ratio Triglycerides 65 Cholesterol 105 L LDL Cholesterol, Calc 45 HDL Cholesterol 47 Assessment & Plan Assessment & Plan narrative: 1. Alcohol use disorder, present on admission and active. 2. Hyponatremia, beer potomania. Present on admission and active. 3. Rectal bleeding noted today, new and active. 4. Alcohol use disorder, present on admission and active. 5. Probable PAF with RVR, improved. 6. Probable BPH with retention symptoms, present on admission and active. 7. Constipation, present on admission and resolved. Plan: -continue bowel program -start Flomax -monitor hemoglobin and bowel movements -telemetry, diltiazem CD 120 daily -Librium 10 t.i.d. -physical therapy and occupational therapy assessments -monitor sodium with saline infusion at 100 per hour Full resuscitation CHAYA is 05/14 is proxy decision maker Inpatient status, anticipate 2 midnight stay. Time-Based Coding :: [TOTAL MINUTES] spent with patient and on the chart (including review of chart, obtaining history, exam, reviewing outside data, placing orders, documenting exam and treatment plan, and counseling patient) on [DATE].
[2024-05-12 07:56] LABS: BUN Creatinine Ratio 22.6 (6-22); Blood Urea Nitrogen 14 mg/dL (9-20); Calcium 8.6 mg/dL (8.4-10.2); Carbon Dioxide 28 mmol/L (22-32); Chloride 91 mmol/L (98-107); Estimated Glomerular Filt Rate > 60 mL/min (>60); Glucose 98 mg/dL (80-110); Potassium 3.5 mmol/L (3.4-5.1); Sodium 124 mmol/L (137-145)
[2024-05-12] MEDS: LORATADINE 10 MG TABLET PO (08:15)
[2024-05-12] MEDS: MULTIVITAMIN 1 TABLET 1 TAB PO (08:15)
[2024-05-12] MEDS: THIAMINE 100 MG TABLET PO (08:15)
[2024-05-12] MEDS: ASPIRIN EC 81 MG TABLET PO (08:15)
[2024-05-12] MEDS: FOLIC ACID 1 MG TABLET PO (08:15)
[2024-05-12] MEDS: FLUoxetine 20 MG CAPSULE PO (08:15)
[2024-05-12] MEDS: ENOXAPARIN 40 MG/0.4 ML SYRINGE SUBCUT (08:15)
[2024-05-12] MEDS: POTASSIUM CHLORIDE 20 MEQ TAB 40 MEQ PO (11:10)
[2024-05-12] MEDS: OXYCODONE IR 5 MG TABLET PO ×2 (13:18→18:55)
--- NOTE | 2024-05-12 14:49 | P.CONS_ITS ---
History of Present Illness Consult details Chief complaint: Fell down stairs, back injury Narrative: 68-year-old male history of paroxysmal atrial fibrillation, abdominal aortic aneurysm, chronic alcohol use, hypertension, dyslipidemia fell on 05/07 while walking down a slope. Hit his butt then his occiput. Said he had no pain for 1-2 days, but then developed low back pain. Denies leg pain or weakness. He then developed constipation - which he has never had before - as well as urinary retention. Said he just had a catheter removed. L1 compression fracture and L2 and L3 LEFT transverse processes fractures noted on CTA. Dr Presley was consulted. 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 Meds Home Medications and Allergies Home Medications Medication Instructions Recorded Confirmed Type fluticasone propionate [Flonase] 1 spray mucous membrane PRN PRN 07/17/22 05/12/24 History Allergic Symptoms folic acid 1 mg tablet 1 mg PO DAILY #30 tabs 12/28/22 05/12/24 Rx multivitamin with folic acid 400 1 tab PO DAILY #30 tabs 12/28/22 05/12/24 Rx mcg tablet (Tab-A-Abraham) thiamine mononitrate (vit B1) 100 100 mg PO DAILY #30 tabs 12/28/22 05/12/24 Rx mg tablet atorvastatin 40 mg tablet (Lipitor) 40 mg PO BEDTIME cholesterol #90 07/04/23 05/12/24 Rx tabs fluoxetine 20 mg capsule (Prozac) 20 mg PO DAILY #90 caps 07/04/23 05/12/24 Rx losartan 50 mg tablet 50 mg PO DAILY blood pressure #90 02/23/24 05/12/24 Rx tabs guaifenesin 600 mg tablet, 600 mg PO DAILY 02/27/24 05/12/24 History extended release 12 hr (Mucus Relief ER) aspirin 81 mg tablet,delayed 81 mg PO DAILY 05/10/24 05/12/24 History release (Adult Aspirin Regimen) Claritin 10 mg PO DAILY 05/12/24 05/12/24 History Allergies Allergy/AdvReac Type Severity Reaction Status Date / Time No Known Drug Allergies Allergy Verified 05/10/24 11:07 Review of Systems Review of Systems ROS: Yes All systems reviewed with the patient and are negative except as otherwise documented Exam Vital Signs (past 8 hours): - 05/12/24 08:00 05/12/24 08:20 05/12/24 12:00 Temperature 99.7 F H 98.4 F 99.0 F Pulse Rate 72 73 Respiratory Rate 15 15 Blood Pressure 138/92 H 127/99 H Pulse Oximetry 97 94 Oxygen Flow Rate 0 0 Oxygen Delivery Method Room Air Oxygen Flow Rate 0 Narrative Exam Narrative: AA&O x 3. Back/Spine/Pelvis Other: Turning in bed without difficulty. Extrem Other: 5/5 strength in hip flexors, quadriceps, hamstrings, DF, PF, EHL bilaterally. Sensation to light touch intact throughout BLE.. Objective Labs 05/12/24 06:20 05/12/24 06:20 Labs: Laboratory Results - last 24 hr 05/11/24 05/11/24 05/11/24 02:14 18:29 18:37 WBC 16.5 H RBC 4.55 Hgb 14.9 Hct 42.3 MCV 92.9 MCH 32.7 MCHC 35.2 RDW 13.4 Plt Count 344 Neut % (Auto) 79.4 H Lymph % (Auto) 8.8 L [place] % (Auto) 10.8 Eos % (Auto) 0.6 L Baso % (Auto) 0.4 Neut # (Auto) 29604 H Lymph # (Auto) 1400 [place] # (Auto) 1800 H Eos # (Auto) 100 Baso # (Auto) 100 Sodium 122 L Potassium 3.2 L Chloride 85 L Carbon Dioxide 26 BUN 20 Creatinine 0.76 Estimated GFR > 60 BUN/Creatinine Ratio 26.3 H Glucose 117 H Calcium 9.1 Magnesium Cancelled Total Bilirubin 0.9 AST 29 ALT 27 Alkaline Phosphatase 84 Total Creatine Kinase 175 H Troponin I Cancelled 0.081 H NT-Pro-B Natriuret Pep 173 H Total Protein 7.0 Albumin 4.3 Globulin 2.7 Albumin/Globulin Ratio 1.6 Triglycerides Cholesterol LDL Cholesterol, Calc HDL Cholesterol 05/11/24 05/12/24 05/12/24 20:31 02:14 06:20 WBC 13.0 H RBC 4.22 L Hgb 13.9 Hct 38.9 L MCV 92.2 MCH 32.9 MCHC 35.7 RDW 13.2 Plt Count 319 Neut % (Auto) 76.8 H Lymph % (Auto) 11.1 L [place] % (Auto) 10.7 Eos % (Auto) 1.0 L Baso % (Auto) 0.4 Neut # (Auto) 9900 H Lymph # (Auto) 1400 [place] # (Auto) 1400 H Eos # (Auto) 100 Baso # (Auto) 100 Sodium 124 L Potassium 3.5 Chloride 91 L Carbon Dioxide 28 BUN 14 Creatinine 0.62 L Estimated GFR > 60 BUN/Creatinine Ratio 22.6 H Glucose 98 Calcium 8.6 Magnesium 2.1 Total Bilirubin AST ALT Alkaline Phosphatase Total Creatine Kinase Troponin I 0.153 H* 0.091 H NT-Pro-B Natriuret Pep 218 H Total Protein Albumin Globulin Albumin/Globulin Ratio Triglycerides 65 Cholesterol 105 L LDL Cholesterol, Calc 45 HDL Cholesterol 47 PFSH Medical History Benign essential HTN Family history of dementia Paroxysmal A-fib Alcohol abuse with alcohol-induced mood disorder IFG (impaired fasting glucose) Encounter for subsequent annual wellness visit (AWV) in Medicare patient Abdominal aortic aneurysm Subdural hematoma Major depression, single episode Hyperlipidemia Hepatitis A (~1965) Hemorrhoid (~1984) Grieving Syncope Tobacco dependence Surgical History Anesthesia History of rectal surgery (~1984) History of bunionectomy (~1974) History of tonsillectomy and adenoidectomy (~1965) Family History Father History of heart disease Mother Alzheimer's dementia Social History household members: spouse Tobacco & Substance Use Smoking Status: Current every day smoker alcohol intake: current Assessment & Plan Assessment and plan (1) Lumbar transverse process fracture: Qualifiers: Encounter type: initial encounter Fracture type: closed Qualified Code(s): S32.009A - Unspecified fracture of unspecified lumbar vertebra, initial encounter for closed fracture Status: Acute (2) Closed compression fracture of L1 vertebra: Status: Acute Plan: 1) Imaging reviewed w/ Dr Finney. There is minimal retropulsion of the L1 body into the spinal canal. He does not appear to have any neurological deficits. Should he remain unable to void or if he develops lower extremity radiculopathy, an MRI of the lumbar spine can be ordered. Otherwise, he can follow up w/ Dr Finney in the office in 1-2 weeks for repeat imaging. 2) Recommend TLSO brace for comfort and support. 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 He can be activity as tolerated, would limit lifting for comfort and fall prevention. 3) Disposition, pain control, VTE prophylaxis per hospitalist service. Time-Based Coding :: [TOTAL MINUTES] spent with patient and on the chart (including review of chart, obtaining history, exam, reviewing outside data, placing orders, documenting exam and treatment plan, and counseling patient) on [DATE].
[2024-05-12] MEDS: TAMSULOSIN 0.4 MG CAPSULE PO (15:06)
[2024-05-12] MEDS: dilTIAZem CD 120 MG CAP PO (15:06)
[2024-05-12] MEDS: chlordiazePOXIDE 10 MG CAPSULE PO (18:54)
[2024-05-12] MEDS: SENNOSIDES 8.6 MG TABLET 17.2 MG PO (20:27)
[2024-05-12 20:28] LABS: Hematocrit 36.7 % (41-53); Hemoglobin 13.1 g/dL (13.5-17.5)
[2024-05-12] MEDS: ATORVASTATIN 20 MG TABLET 40 MG PO (20:39)
[2024-05-13] VITALS: BP 140/95; PULSE 65; TEMP 36.3; O2SAT 96
[2024-05-13] MEDS: OXYCODONE IR 5 MG TABLET PO ×3 (00:17→20:45)
[2024-05-13] MEDS: ACETAMINOPHEN 325 MG TABLET 650 MG PO ×2 (00:27→20:44)
[2024-05-13 04:00] VITALS: BP 131/85; PULSE 71; RESP 16; TEMP 36.4; O2SAT 95
[2024-05-13] MEDS: chlordiazePOXIDE 10 MG CAPSULE PO ×3 (06:17→20:44)
[2024-05-13 06:38] LABS: Hematocrit 37.3 % (41-53); Mean Corpuscular HGB Conc 34.9 % (30-36); Mean Corpuscular Hemoglobin 33.1 PG (26-34); Mean Corpuscular Volume 94.7 fL (80-100); Platelet Count 332 X10^3/uL (150-400); Red Blood Cell Count 3.94 X10^6/uL (4.5-5.9); Red Cell Distribution Width 13.4 % (11.6-14.8)
[2024-05-13 07:01] LABS: BUN Creatinine Ratio 13.3 (6-22); Blood Urea Nitrogen 8 mg/dL (9-20); Calcium 8.3 mg/dL (8.4-10.2); Carbon Dioxide 27 mmol/L (22-32); Chloride 97 mmol/L (98-107); Estimated Glomerular Filt Rate > 60 mL/min (>60); Glucose 101 mg/dL (80-110); HEMOLYSIS < 15 (0-50); Potassium 3.3 mmol/L (3.4-5.1); Sodium 128 mmol/L (137-145)
--- NOTE | 2024-05-13 07:23 | PM.PN.1 ---
Subjective Subjective Interval history: S: He feels improved. He was less confused. He was ongoing lumbar pain, but this is manageable with his oxycodone. He declines a change or increase of pain medications. No nausea. Denies any diarrhea or constipation. Exam Vital Signs (past 8 hours): - 05/13/24 00:00 05/13/24 04:00 Temperature 97.4 F L 97.6 F Pulse Rate 65 71 Respiratory Rate 16 Blood Pressure 140/95 H 131/85 Pulse Oximetry 96 95 Oxygen Flow Rate 0 0 Oxygen Delivery Method Room Air Oxygen Flow Rate 0 Narrative Exam Narrative: NAD, alert and oriented. Fluent speech. Lungs are clear, normal rate and effort. Heart is regular, no murmur gallop or rub. Abdomen is soft, non distended. Extremities are free of edema. Objective Labs 05/13/24 06:10 05/13/24 06:10 Labs: Laboratory Results - last 24 hr 05/12/24 05/12/24 05/13/24 06:20 20:20 06:10 WBC 10.0 RBC 3.94 L Hgb 13.1 L 13.0 L Hct 36.7 L 37.3 L MCV 94.7 MCH 33.1 MCHC 34.9 RDW 13.4 Plt Count 332 Sodium 124 L 128 L Potassium 3.5 3.3 L Chloride 91 L 97 L Carbon Dioxide 28 27 BUN 14 8 L Creatinine 0.62 L 0.60 L Estimated GFR > 60 > 60 BUN/Creatinine Ratio 22.6 H 13.3 Glucose 98 101 Calcium 8.6 8.3 L NT-Pro-B Natriuret Pep 218 H PFSH Medical History Benign essential HTN Family history of dementia Paroxysmal A-fib Alcohol abuse with alcohol-induced mood disorder IFG (impaired fasting glucose) Encounter for subsequent annual wellness visit (AWV) in Medicare patient Abdominal aortic aneurysm Subdural hematoma Major depression, single episode Hyperlipidemia Hepatitis A (~1965) Hemorrhoid (~1984) Grieving Syncope Tobacco dependence Surgical History Anesthesia History of rectal surgery (~1984) History of bunionectomy (~1974) History of tonsillectomy and adenoidectomy (~1965) Family History Father History of heart disease Mother Alzheimer's dementia Social History household members: spouse Smoking Status: Current every day smoker alcohol intake: current Assessment & Plan Assessment & Plan narrative: 1. Alcohol use disorder, present on admission and active. No withdrawal symptoms. 2. Hyponatremia, beer potomania. Present on admission and improving. 3. Rectal bleeding noted today, new and active. Continue to monitor. 4. Alcohol use disorder, present on admission and active. 5. Probable PAF with RVR, improved. 6. Probable BPH with retention symptoms, present on admission and active. 7. Constipation, present on admission and resolved. 8. Mildly displaced fractures of the left 2nd and 3rd transverse processes. Severe compression deformity of the L1 vertebral body. 9. Subacute appearing left lateral 9th rib fracture. 10. Hypokalemia, new and active. Plan: -continue bowel program -continue Flomax -monitor hemoglobin and bowel movements -continue telemetry, diltiazem CD 120 daily -continue Librium 10 t.i.d. -physical therapy and occupational therapy assessments -monitor sodium with saline infusion at 100 per hour, continue -replace potassium TLSO back brace recommended by Ortho. Patient declines. Full resuscitation CHAYA is 05/14 is proxy decision maker Inpatient status, anticipate 2 midnight stay. Time-Based Coding :: [TOTAL MINUTES] spent with patient and on the chart (including review of chart, obtaining history, exam, reviewing outside data, placing orders, documenting exam and treatment plan, and counseling patient) on [DATE].
[2024-05-13 08:00] VITALS: RESP 18
[2024-05-13] MEDS: ASPIRIN EC 81 MG TABLET PO (09:15)
[2024-05-13] MEDS: TAMSULOSIN 0.4 MG CAPSULE PO (09:15)
[2024-05-13] MEDS: ENOXAPARIN 40 MG/0.4 ML SYRINGE SUBCUT (09:15)
[2024-05-13] MEDS: FOLIC ACID 1 MG TABLET PO (09:15)
[2024-05-13] MEDS: dilTIAZem CD 120 MG CAP PO (09:15)
[2024-05-13] MEDS: FLUoxetine 20 MG CAPSULE PO (09:15)
[2024-05-13] MEDS: MULTIVITAMIN 1 TABLET 1 TAB PO (09:15)
[2024-05-13] MEDS: LORATADINE 10 MG TABLET PO (09:15)
[2024-05-13] MEDS: THIAMINE 100 MG TABLET PO (09:15)
[2024-05-13] MEDS: POTASSIUM CHLORIDE 20 MEQ TAB 40 MEQ PO ×2 (09:17→14:51)
--- NOTE | 2024-05-13 09:45 | PT.IIE ---
Current Diagnoses Other hyperlipidemia (05/11/24) Hypo-osmolality and hyponatremia (05/11/24) Hypokalemia (05/11/24) Alcohol abuse with alcohol-induced mood disorder (05/11/24) Nicotine dependence, unspecified, uncomplicated (05/11/24) Essential (primary) hypertension (05/11/24) Paroxysmal atrial fibrillation (05/11/24) Other specified abnormal findings of blood chemistry (05/11/24) Unspecified fracture of unspecified lumbar vertebra, initial encounter for closed fracture (05/11/24) Wedge compression fracture of first lumbar vertebra, initial encounter for closed fracture (05/11/24) Surgical History (Last Reviewed 05/12/24 @ 14:53 by Bronson Darnell MD) Anesthesia History of bunionectomy (~1974) History of rectal surgery (~1984) History of tonsillectomy and adenoidectomy (~1965) Medical History (Last Reviewed 05/12/24 @ 14:53 by Bronson Darnell MD) Abdominal aortic aneurysm Alcohol abuse with alcohol-induced mood disorder Benign essential HTN Encounter for subsequent annual wellness visit (AWV) in Medicare patient Family history of dementia Grieving Hemorrhoid (~1984) Hepatitis A (~1965) Hyperlipidemia IFG (impaired fasting glucose) Major depression, single episode Paroxysmal A-fib Subdural hematoma Syncope Tobacco dependence Physical Therapy Inpatient Evaluation/Re-Eval M1 PT/OT-IP Prior Functional Status Start: 05/13/24 08:22 Freq: NEEDED Status: Active Protocol: Document 05/13/24 08:40 MB (Rec: 05/13/24 09:45 MB [id number]) Medical Review Prior Functional Status Medical History Reviewed Yes Diet/Fluid Consistency Regular Communication WNLs Mobility and Gait I, multiple falls and pt reports about one fall a month and he considers this not much Activities of Daily Living and IADL's Retired, I Social History Household Members spouse Living Arrangements House Number of Floors (Floors) 3 or More Floors Number of Stairs To Enter/Railing? 1 step and no rail to enter, upstairs and basement with both sets of steps 13-14 and right rail ascend Home Environment Standard Height Toilet,Walk in Shower Home Equipment Four Wheel Walker,Straight Cane,Hand Held Shower,Grab Bars In Shower Employment Status Retired M2 PT-IP Current Condition Start: 05/13/24 08:22 Freq: NEEDED Status: Active Protocol: Document 05/13/24 08:40 MB (Rec: 05/13/24 09:45 MB [id number]) Physical Therapy Current Condition Current Condition Evaluation Date 05/13/24 Treatment Diagnosis Falls, mildly displaced fxs 2nd and 3rd transverse proc, L1 compress M3 PT-IP Subjective Start: 05/13/24 08:22 Freq: NEEDED Status: Active Protocol: Document 05/13/24 08:40 MB (Rec: 05/13/24 09:45 MB [id number]) Subjective Physical Therapy Visit Type Type Initial Evaluation Visit Start Time 08:40 Visit Stop Time 09:08 Number of SPECIAL EDUCATION EDUCATIONAL ASSISTANT Visits 0 Physical Therapy Visit Comments Patient Comments Pt is agreeable to PT, states, his pain is localizing to L1 . He denies paresthesias and pain in the legs but does report worsening urinary incontinence and constipation since the fall. Therapy Pain Assessment Pain When Pain Assessed At Rest Pain Present Pain Present Pain Reported Location Lower Back Intensity 4 M4 PT-IP Mobility and Gait Start: 05/13/24 08:22 Freq: NEEDED Status: Active Protocol: Document 05/13/24 08:40 MB (Rec: 05/13/24 09:45 MB [id number]) PT-Bed Mobility Assessment Supine to Sit Supine to Sit Independent Scooting Scooting to Edge of Bed Independent PT-Transfer Assessment Sit to and From Stand Sit to and from Stand Standby Assistance Equipment Transfer Assistive Device Gait Belt Orthotic/Prosthetic Devices or Brace: No Transfers Transfer Destination Chair Transfer Technique Ambulation Transfer Ability Level of Assist Standby Assistance Comments Mobility Comments Pt states that pain is localizing to L1 but he points to lower lumbar spine with gait, pt declining TLSO that is offered by PT (off the shelf [place] that is available in the hospital) Gait Assessment Gait Gait Assistance Required: Standby Assistance Distance (Feet) 150 Able to Maintain Weight Bearing Status Yes During Gait Assistive Devices Assistive Device Gait Belt Orthotic/Prosthetic Devices or Brace: No Gait Deviations General Gait Pattern Narrow Based Gait Factors Limiting Gait Function Factors Limiting Gait Function Poor Balance Comments Gait Comments Functionally, left LE is mildly weaker than the right with gait but does not present so with MMT in sitting. Unsure if more weakness with spinal loading with gait and he does report he feels better in general when up PT-Balance Assessment Sitting Balance and Reactions Static Sitting Balance Ability Normal Dynamic Sitting Balance Ability Normal Standing Balance and Reactions Static Standing Balance Ability Good Dynamic Standing Balance Ability Good Device Used Gait belt M5 PT-IP Objective Assessments Start: 05/13/24 08:22 Freq: NEEDED Status: Active Protocol: Document 05/13/24 08:40 MB (Rec: 05/13/24 09:45 MB [id number]) Orientation Orientation/Cognition Level of Alertness Alert Orientation Name,Age,Birthday,Month,Date, Year,Day of Week,Place, Situation Language Function Ability No Deficits Noted Safety Awareness Decreased Safety Awareness Memory Description No Deficits Noted Gross Range of Motion Upper Extremity ROM Impairments Defer to OT if ordered Lower Extremity ROM Assessment Within Functional Limits Strength Lower Extremity Strength Assessment Within Functional Limits Coordination Assessment Assessment Foot Tapping Test Minimal Impairment Heel on Lacy Test Minimal Impairment Coordination Comments Mild impairment left greater than right LE Sensation Assessment Comments Sensation Comments Pt denies LE pain and paresthesias Muscle Tone Muscle Tone WNL Yes M6 PT-IP Treatment Start: 05/13/24 08:22 Freq: NEEDED Status: Active Protocol: Document 05/13/24 08:40 MB (Rec: 05/13/24 09:45 MB [id number]) Physical Therapy Treatment Education Education Provided Safety Other Treatments Other Treatment Performed Discussed TLSO, pt sitting upright with HOB increased upon arrival and so did not practice log rolling but will perform in future treatments, ed in need to increase safety to avoid future falling d/t spinal fractures/possible instability that could be serious, handouts provided for back precautions and log rolling M7 PT-IP Assessment and Plan Start: 05/13/24 08:22 Freq: NEEDED Status: Active Protocol: Document 05/13/24 08:40 MB (Rec: 05/13/24 09:45 MB [id number]) PT Summary Assessment and Plan Potential Rehabilitation Potential Fair Status of Condition at Evaluation Evolving Summary Impairments Pain,Balance,Coordination,Bed Mobility,Transfers,Gait Assessment Summary Pt is a 68 y/o male reporting that he doesn't fall much at home, only once a month. He has good anatomical vocabulary and reports pain is localizing to L1 but he points to lower lumbar spine with gait. He presents with left greater than right LE weakness with gait (decreased toe off, heel strike) but MMT is grossly similar. He denies pain and paresthesias in his legs and his coordination is mildly impaired in his legs. Discussed TLSO and pt currently refusing and ed that he has time to reconsider if he likes. If he refuses the off the shelf offered here, recommend outpatient slasher hand consult for pt. Of note, CTA chest, abdomen and pelvis is not clear about transverse process fractures as far as thoracic or lumbar spine as report says, Mildly displaced fractures of the left 2nd and 3rd transverse processes. Severe compression deformity of the L1 vertebral body. Ortho PA note refers to lumbar area and another note states right sided transverse fractures. Radiologist contact info is not available in chart and PT cannot pull up image of report. Ortho appears more concerned about stability of lumbar fracture per note. Overall, pt will benefit from ongoing ed about fall reduction, back precautions and log rolling. With history of multiple falls and alcohol use, functional prognosis is guarded to poor. Goals Bed Mobility Goal Independent Transfer Goal Independent Gait Goal Independent Gait Distance 200 Other Goals Pt will ascend and descend one step with no rail and I. Pt will ascend and descend flight of steps with right rail ascend and mod I. Pt will demonstrate log rolling I to protect spine. Pt will verbalize 3/3 back precautions. Days to Meet Goals 2 Frequency of Treatment Frequency Of Treatment Once a Day Treatment Plan Physical Therapy Treatment Plan Bed Mobility Training,Transfer Training,Gait Training, Therapeutic Exercise,Balance Retraining,Discharge Planning, Hot or Cold Pack,Neuromuscular Re-ed,Coordination Retraining ,Manual Therapy Precautions Lumbar Precautions Log Roll,No Twisting,Limit Bending,Lifting Restriction of 10 lbs,Gait Belt above Incisional Area Recommendations To Nursing Amount of Assist Needed Standby Assistance Discharge Recommendations PT Discharge Recommendations Home with Assistance, Outpatient PT Transportation Needs at Discharge Private Vehicle
[2024-05-13 12:00] VITALS: BP 103/66; PULSE 70; RESP 18; TEMP 37.1; O2SAT 96
--- NOTE | 2024-05-13 15:04 | P.PN_ITS ---
Subjective Subjective Date Patient Seen: 05/13/24 Time Patient Seen: 15:04 Interval history: Patient's pain is mild. Denies fever or chills. No nausea or vomiting. Patient has been able to urinate on his own. Patient had a bowel movement this morning as well. Exam Vital Signs (past 8 hours): - 05/13/24 08:00 05/13/24 12:00 Temperature 98.7 F Pulse Rate 70 Respiratory Rate 18 18 Blood Pressure 103/66 Pulse Oximetry 96 Oxygen Flow Rate 0 Oxygen Delivery Method Room Air Oxygen Flow Rate 0 Narrative Exam Narrative: Neurovascular status is intact bilateral lower extremities. Const General: cooperative and comfortable Nutritional Appearance: average body habitus Orientation: alert Resp Effort & Inspection: normal respiratory effort and able to speak in complete sentences Objective Labs 05/13/24 06:10 05/13/24 06:10 Labs: Laboratory Results - last 24 hr 05/12/24 05/13/24 20:20 06:10 WBC 10.0 RBC 3.94 L Hgb 13.1 L 13.0 L Hct 36.7 L 37.3 L MCV 94.7 MCH 33.1 MCHC 34.9 RDW 13.4 Plt Count 332 Sodium 128 L Potassium 3.3 L Chloride 97 L Carbon Dioxide 27 BUN 8 L Creatinine 0.60 L Estimated GFR > 60 BUN/Creatinine Ratio 13.3 Glucose 101 Calcium 8.3 L [facility] Medical History Benign essential HTN Family history of dementia Paroxysmal A-fib Alcohol abuse with alcohol-induced mood disorder IFG (impaired fasting glucose) Encounter for subsequent annual wellness visit (AWV) in Medicare patient Abdominal aortic aneurysm Subdural hematoma Major depression, single episode Hyperlipidemia Hepatitis A (~1965) Hemorrhoid (~1984) Grieving Syncope Tobacco dependence Surgical History Anesthesia History of rectal surgery (~1984) History of bunionectomy (~1974) History of tonsillectomy and adenoidectomy (~1965) Family History Father History of heart disease Mother Alzheimer's dementia Social History household members: spouse Smoking Status: Current every day smoker alcohol intake: current Assessment & Plan Assessment & Plan narrative: L1 compression fracture with minimal retropulsion of the L1 body into the spinal canal. Patient has been able to urinate on his own. If he has any further difficulties with voiding or develops lower extremity radiculopathy and MRI of the lumbar spine would be recommended. TLSO brace for comfort and support Patient will otherwise follow up with Dr. Finney outpatient clinic in 1-2 weeks for repeat imaging. Time-Based Coding :: [TOTAL MINUTES] spent with patient and on the chart (including review of chart, obtaining history, exam, reviewing outside data, placing orders, documenting exam and treatment plan, and counseling patient) on [DATE].
--- NOTE | 2024-05-13 15:41 | CM.DANOTE ---
Initial DCP Assessment Visit Note Reviewed EMR and team rounds for status updates. Went to meet with pt at bedside to introduce self and role, however he was found to be sleeping at the time of this visit. Pt lives independently at baseline with his in their own home in [place]. His will transport him once he's medically stable for home d/c. Payor: Medicare PCP: Dr. Duran Pt is a 68 year-old M with a hx of paroxysmal Afib, abdominal aortic aneurysm, chronic alcohol use, hypertension, and dyslipidemia presented to the ED with c/o pain after falling down the stairs. He was found to be hyponatremic, and urinary retention. CT imaging showed a L-sided rib fracture and 2-vertabral fractures. He was admitted for hyponatremia and Afib w/RVR with positive troponins for further tx and evaluation. DCP will continue to monitor for any final recs. prior to d/c home. Discharge Planning/Care Management CM Discharge Assessment Start: 05/13/24 15:39 Freq: Status: Active Protocol: Document 05/13/24 15:39 DPL (Rec: 05/13/24 15:41 DPL [id number]) Discharge Planning Assessment Assigned Topography Technician KUNAL Murcia Advance Directives? No History Provided By Medical Record Expected Length of Stay 3 Has Patient been admitted in last 30 No days? Prior Living Arrangements House Household Members spouse Type of transporation used prior to Drives own vehicle admit Independent with ADL's Yes Is patient alert and oriented? Yes Comment N/A Caregiver for Another No Comment No identified home d/c needs identified at this time. Barriers to Discharge No Discharge Plan Home Transportation Arrangement Spouse Additional Comment Following for needs Whiteboard Updated in Patient Room with Yes name and ext. # of Topography Technician Review Status In Process Please Provide Date Initial DC 05/13/24 Assessment Was Performed
[2024-05-13 16:00] VITALS: BP 125/75; PULSE 67; RESP 16; TEMP 36.8; O2SAT 97
--- NOTE | 2024-05-13 18:08 | PC.NURSE ---
Pt independent in room. Denies discomfort. SL intact/patent Tele SR/Sb per ICU staff Tele D/C'd late in day Call light w/in reach, pt calls appropriately for needs Continue w/plan of care.
[2024-05-13 20:30] VITALS: BP 107/74; PULSE 69; RESP 16; TEMP 37; O2SAT 96
[2024-05-13] MEDS: SENNOSIDES 8.6 MG TABLET 17.2 MG PO (20:45)
[2024-05-13] MEDS: ATORVASTATIN 20 MG TABLET 40 MG PO (20:45)
[2024-05-14] MEDS: OXYCODONE IR 5 MG TABLET PO ×3 (02:57→19:57)
[2024-05-14] MEDS: ACETAMINOPHEN 325 MG TABLET 650 MG PO ×2 (02:57→19:57)
[2024-05-14 04:13] VITALS: BP 128/80; PULSE 61; RESP 15; TEMP 36.6; O2SAT 98
[2024-05-14 05:57] LABS: Hemoglobin 13.9 g/dL (13.5-17.5); Mean Corpuscular HGB Conc 34.8 % (30-36); Mean Corpuscular Hemoglobin 32.9 PG (26-34); Mean Corpuscular Volume 94.7 fL (80-100); Platelet Count 366 X10^3/uL (150-400); Red Blood Cell Count 4.22 X10^6/uL (4.5-5.9); Red Cell Distribution Width 13.2 % (11.6-14.8); White Blood Cell Count 9.5 X10^3/uL (4.5-11.0)
[2024-05-14 05:59] LABS: BUN Creatinine Ratio 19.7 (6-22); Blood Urea Nitrogen 12 mg/dL (9-20); Calcium 9.1 mg/dL (8.4-10.2); Carbon Dioxide 28 mmol/L (22-32); Chloride 95 mmol/L (98-107); Estimated Glomerular Filt Rate > 60 mL/min (>60); Glucose 107 mg/dL (80-110); HEMOLYSIS < 15 (0-50); Potassium 3.9 mmol/L (3.4-5.1); Sodium 127 mmol/L (137-145)
[2024-05-14 08:00] VITALS: BP 144/89; PULSE 67; RESP 16; TEMP 36.7; O2SAT 95
[2024-05-14] MEDS: dilTIAZem CD 120 MG CAP PO (08:11)
[2024-05-14] MEDS: ENOXAPARIN 40 MG/0.4 ML SYRINGE SUBCUT (08:11)
[2024-05-14] MEDS: chlordiazePOXIDE 10 MG CAPSULE PO ×3 (08:11→19:59)
[2024-05-14] MEDS: ASPIRIN EC 81 MG TABLET PO (08:11)
[2024-05-14] MEDS: THIAMINE 100 MG TABLET PO (08:12)
[2024-05-14] MEDS: TAMSULOSIN 0.4 MG CAPSULE PO (08:12)
[2024-05-14] MEDS: FOLIC ACID 1 MG TABLET PO (08:12)
[2024-05-14] MEDS: LORATADINE 10 MG TABLET PO (08:12)
[2024-05-14] MEDS: MULTIVITAMIN 1 TABLET 1 TAB PO (08:12)
[2024-05-14] MEDS: FLUoxetine 20 MG CAPSULE PO (08:12)
--- NOTE | 2024-05-14 10:27 | CM.DPC ---
DCP Continued: Reviewed EMR and team rounds for pt?s medical status. Per Provider, pt is utilizing a TLSO brace and will require a follow up with Ortho surgeon in 1-2 weeks post discharge. No new discharge needs identified at this time. Plan: Anticipating discharge home with today, 05/14, or when medically cleared. CM Team will continue to follow for coordination of discharge plans. JAMES Ledbetter
[2024-05-14] MEDS: SODIUM CHLORIDE 1,000 MG TABLET 1000 MG PO ×2 (10:42→19:59)
--- NOTE | 2024-05-14 11:50 | PT.IPTN ---
Current Diagnoses Other hyperlipidemia (05/11/24) Hypo-osmolality and hyponatremia (05/11/24) Hypokalemia (05/11/24) Alcohol abuse with alcohol-induced mood disorder (05/11/24) Nicotine dependence, unspecified, uncomplicated (05/11/24) Essential (primary) hypertension (05/11/24) Paroxysmal atrial fibrillation (05/11/24) Other specified abnormal findings of blood chemistry (05/11/24) Unspecified fracture of unspecified lumbar vertebra, initial encounter for closed fracture (05/11/24) Wedge compression fracture of first lumbar vertebra, initial encounter for closed fracture (05/11/24) Physical Therapy Treatment Note M2 PT-IP Current Condition Start: 05/13/24 08:22 Freq: NEEDED Status: Active Protocol: Document 05/13/24 08:40 MB (Rec: 05/13/24 09:45 MB [id number]) Physical Therapy Current Condition Current Condition Evaluation Date 05/13/24 Treatment Diagnosis Falls, mildly displaced fxs 2nd and 3rd transverse proc, L1 compress M3 PT-IP Subjective Start: 05/13/24 08:22 Freq: NEEDED Status: Active Protocol: Document 05/14/24 11:50 AB (Rec: 05/14/24 13:14 AB [id number]) Subjective Physical Therapy Visit Type Type Treatment Note Visit Start Time 11:50 Visit Stop Time 12:15 Number of EMERGENCY DEPARTMENT PHYSICIAN Visits 0 Physical Therapy Visit Comments Patient Comments agreeable to do PT Therapy Pain Assessment Pain When Pain Assessed At Rest Location Lower Back Intensity 3 Scale Used Numeric (0 - 10) Pain Management Techniques Modification of Treatment, Timing of Activity with Medications M4 PT-IP Mobility and Gait Start: 05/13/24 08:22 Freq: NEEDED Status: Active Protocol: Document 05/14/24 11:50 AB (Rec: 05/14/24 13:14 AB [id number]) PT-Bed Mobility Assessment Rolling Type of Rolling Log Rolling Level of Assist Independent Supine to Sit Supine to Sit Independent Sit to Supine Sit to Supine Independent PT-Transfer Assessment Sit to and From Stand Sit to and from Stand Independent Equipment Transfer Assistive Device None,Gait Belt Orthotic/Prosthetic Devices or Brace: No Comments Mobility Comments pt sitting on the chair and agreeable to do PT. 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 refused TLSO brace and stated that he just make sure that he does not bend from his back, twist or lift heavy things. completed sit to stand from the chair SBA and ambulated to the EOB SBA. completed log roll bed mobiltiy mod I. pt agreed to do stairs. sit to stand from EOB SBA. ambulated in the hallway ~ 200 ft SBA without AD. completed up/down 3 steps using R rail ascending SBA and up/down platform step without AD SBA. pt ambulated back to his room without AD SBA and sat back on his chair. positioned pt on the chair. set up for lunch. call light and table placed within reach. no further PT needs at this time. pt agreed. Gait Assessment Gait Gait Assistance Required: Standby Assistance Distance (Feet) 200 Able to Maintain Weight Bearing Status Yes During Gait Assistive Devices Assistive Device None,Gait Belt Orthotic/Prosthetic Devices or Brace: No Factors Limiting Gait Function Factors Limiting Gait Function Pain Stair Climbing Assessment Evaluation Level of Assist On Stairs Standby Assistance Devices Stair Climbing Assistive Devices None,Right Railing Technique/Endurance Stair Climbing Direction Ascend and Descend Stair Climbing Technique Step Over Step Number of Steps Climbed 3 Stair Climbing Set # Repetitions (reps) 1 M5 PT-IP Objective Assessments Start: 05/13/24 08:22 Freq: NEEDED Status: Active Protocol: Document 05/13/24 08:40 MB (Rec: 05/13/24 09:45 MB [id number]) Orientation Orientation/Cognition Level of Alertness Alert Orientation Name,Age,Birthday,Month,Date, Year,Day of Week,Place, Situation Language Function Ability No Deficits Noted Safety Awareness Decreased Safety Awareness Memory Description No Deficits Noted Gross Range of Motion Upper Extremity ROM Impairments Defer to OT if ordered Lower Extremity ROM Assessment Within Functional Limits Strength Lower Extremity Strength Assessment Within Functional Limits Coordination Assessment Assessment Foot Tapping Test Minimal Impairment Heel on Lacy Test Minimal Impairment Coordination Comments Mild impairment left greater than right LE Sensation Assessment Comments Sensation Comments Pt denies LE pain and paresthesias Muscle Tone Muscle Tone WNL Yes M6 PT-IP Treatment Start: 05/13/24 08:22 Freq: NEEDED Status: Active Protocol: Document 05/14/24 11:50 AB (Rec: 05/14/24 13:14 AB [id number]) Physical Therapy Treatment Education Education Provided Precautions,Safety M7 PT-IP Assessment and Plan Start: 05/13/24 08:22 Freq: NEEDED Status: Active Protocol: Document 05/14/24 11:50 AB (Rec: 05/14/24 13:14 AB [id number]) PT Summary Assessment and Plan Potential Rehabilitation Potential Good Summary Impairments Pain,ROM,Balance,Transfers, Gait,Activity Tolerance Progress Towards Goals Progressing Toward Goals Assessment Summary pt mobilizing well and needing only SBA for safety during ambulation without AD. pt is modified independent with bed mobility and was able to do stairs SBA. pt lives with spouse and spouse will be able to assist if needed. no further PT needs at this time. Goals Bed Mobility Goal Independent Transfer Goal Independent Gait Goal Independent Gait Distance 200 Other Goals Pt will ascend and descend one step with no rail and I. Pt will ascend and descend flight of steps with right rail ascend and mod I. Pt will demonstrate log rolling I to protect spine. Pt will verbalize 3/3 back precautions. Days to Meet Goals 2 Frequency of Treatment Frequency Of Treatment Discharge Treatment Plan Physical Therapy Treatment Plan Bed Mobility Training,Transfer Training,Gait Training, Therapeutic Exercise,Balance Retraining,Discharge Planning, Hot or Cold Pack,Neuromuscular Re-ed,Coordination Retraining ,Manual Therapy Precautions Lumbar Precautions Log Roll,No Twisting,Limit Bending,Lifting Restriction of 10 lbs,Gait Belt above Incisional Area Recommendations To Nursing Amount of Assist Needed Standby Assistance Discharge Recommendations PT Discharge Recommendations Home with Assistance, Outpatient PT Transportation Needs at Discharge Private Vehicle
--- NOTE | 2024-05-14 13:58 | PM.PN.1 ---
Subjective Subjective Interval history: History: Ibrahima is a pleasant 68 year old male who has a history of paroxysmal atrial fibrillation, abdominal aortic aneurysm, chronic alcohol use, hypertension, dyslipidemia. He fell on 05/07 while walking down a slope. Hit his butt then his occiput. Said he had no pain for 1-2 days, but then developed low back pain. Denies leg pain or weakness. He then developed constipation - which he has never had before - as well as urinary retention. Today: His urinary retention and constipation has resolved, still no lower extremity weakness or numbness. Reports he is feeling well. 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 Denies fever, chills, chest pain, SOB, nausea, vomiting. Exam Vital Signs (past 8 hours): - 05/14/24 08:00 Temperature 98.1 F Pulse Rate 67 Respiratory Rate 16 Blood Pressure 144/89 H Pulse Oximetry 95 Oxygen Flow Rate 0 Oxygen Delivery Method Room Air Oxygen Flow Rate 0 Narrative Exam Narrative: Patient sitting comfortably in bed side chair during our interview today. No acute distress. AOx3. Grossly normal alignment of the bilateral lower extremities. 5/5 strength with DF, PF, EHL, knee flexion, knee extension, hip flexion bilaterally. Gross sensation intact throughout bilateral lower extremities. Calves soft and non-tender bilaterally. SCDs are on and functioning. Brisk capillary refill, pulses intact. Objective Labs 05/14/24 04:45 05/14/24 04:45 Labs: Laboratory Results - last 24 hr 05/14/24 04:45 WBC 9.5 RBC 4.22 L Hgb 13.9 Hct 40.0 L MCV 94.7 MCH 32.9 MCHC 34.8 RDW 13.2 Plt Count 366 Sodium 127 L Potassium 3.9 Chloride 95 L Carbon Dioxide 28 BUN 12 Creatinine 0.61 L Estimated GFR > 60 BUN/Creatinine Ratio 19.7 Glucose 107 Calcium 9.1 [facility] Medical History Benign essential HTN Family history of dementia Paroxysmal A-fib Alcohol abuse with alcohol-induced mood disorder IFG (impaired fasting glucose) Encounter for subsequent annual wellness visit (AWV) in Medicare patient Abdominal aortic aneurysm Subdural hematoma Major depression, single episode Hyperlipidemia Hepatitis A (~1965) Hemorrhoid (~1984) Grieving Syncope Tobacco dependence Surgical History Anesthesia History of rectal surgery (~1984) History of bunionectomy (~1974) History of tonsillectomy and adenoidectomy (~1965) Family History Father History of heart disease Mother Alzheimer's dementia Social History household members: spouse Smoking Status: Current every day smoker alcohol intake: current Assessment & Plan Assessment & Plan narrative: L1 compression fracture with minimal retropulsion of the L1 body into the spinal canal. Patient has been able to urinate on his own, no weakness or numbness at this time. If he has any further difficulties with voiding or develops lower extremity radiculopathy and MRI of the lumbar spine would be recommended. TLSO brace for comfort and support Patient should follow up with Dr. Finney outpatient clinic in 1-2 weeks for repeat imaging. Time-Based Coding :: [TOTAL MINUTES] spent with patient and on the chart (including review of chart, obtaining history, exam, reviewing outside data, placing orders, documenting exam and treatment plan, and counseling patient) on [DATE].
[2024-05-14 16:00] VITALS: BP 109/78; PULSE 66; RESP 16; TEMP 36.6; O2SAT 97
[2024-05-14] MEDS: ATORVASTATIN 20 MG TABLET 40 MG PO (19:59)
[2024-05-14 20:00] VITALS: BP 137/81; PULSE 62; RESP 18; TEMP 37; O2SAT 98
[2024-05-15] VITALS: BP 140/84; PULSE 74; RESP 18; TEMP 37.1; O2SAT 98
[2024-05-15] MEDS: OXYCODONE IR 5 MG TABLET PO ×2 (02:21→07:53)
[2024-05-15] MEDS: ACETAMINOPHEN 325 MG TABLET 650 MG PO ×2 (02:21→07:53)
[2024-05-15 04:00] VITALS: BP 134/86; PULSE 86; RESP 18; TEMP 36.6; O2SAT 96
[2024-05-15 06:55] LABS: Add Manual Diff / Slide Review NO; Basophils Absolute Auto 100 /uL (0-100); Basophils Percent Auto 0.6 % (0-2); Eosinophils Absolute Auto 500 /uL (0-450); Eosinophils Percent Auto 5.1 % (2-4); Hematocrit 40.5 % (41-53); Lymphocytes Absolute Auto 1800 /uL (1100-4500); Lymphocytes Percent Auto 19.8 % (25-40); Mean Corpuscular HGB Conc 34.6 % (30-36); Mean Corpuscular Hemoglobin 32.9 PG (26-34); Monocytes Absolute Auto 900 /uL (0-900); Monocytes Percent Auto 10.3 % (3-14); Neutrophils Absolute Auto 5800 /uL (1500-7000); Neutrophils Percent Auto 64.2 % (50-75); Platelet Count 386 X10^3/uL (150-400); Red Blood Cell Count 4.26 X10^6/uL (4.5-5.9); Red Cell Distribution Width 13.5 % (11.6-14.8)
[2024-05-15 07:19] LABS: Alanine Aminotransferase 22 IU/L (<50); Albumin 3.7 g/dL (3.5-5.0); Albumin Globulin Ratio 1.2 (1.0-2.8); Alkaline Phosphatase 68 U/L (38-126); Aspartate Aminotransferase 23 IU/L (17-59); BUN Creatinine Ratio 14.7 (6-22); Bilirubin Total 0.5 mg/dL (0.2-1.3); Blood Urea Nitrogen 10 mg/dL (9-20); Calcium 9.3 mg/dL (8.4-10.2); Carbon Dioxide 29 mmol/L (22-32); Chloride 97 mmol/L (98-107); Estimated Glomerular Filt Rate > 60 mL/min (>60); Glucose 97 mg/dL (80-110); HEMOLYSIS < 15 (0-50); Magnesium 2.1 mg/dL (1.6-2.3); Potassium 4.1 mmol/L (3.4-5.1); Sodium 131 mmol/L (137-145); Total Protein 6.7 g/dL (6.3-8.2)
[2024-05-15 08:00] VITALS: BP 118/85; PULSE 67; RESP 16; TEMP 36.4; O2SAT 96
[2024-05-15] MEDS: dilTIAZem CD 120 MG CAP PO (09:24)
[2024-05-15] MEDS: FLUoxetine 20 MG CAPSULE PO (09:24)
[2024-05-15] MEDS: LORATADINE 10 MG TABLET PO (09:25)
[2024-05-15] MEDS: ASPIRIN EC 81 MG TABLET PO (09:25)
[2024-05-15] MEDS: THIAMINE 100 MG TABLET PO (09:25)
[2024-05-15] MEDS: MULTIVITAMIN 1 TABLET 1 TAB PO (09:25)
[2024-05-15] MEDS: chlordiazePOXIDE 10 MG CAPSULE PO (09:25)
[2024-05-15] MEDS: FOLIC ACID 1 MG TABLET PO (09:25)
[2024-05-15] MEDS: TAMSULOSIN 0.4 MG CAPSULE PO (09:25)
[2024-05-15] MEDS: SODIUM CHLORIDE 1,000 MG TABLET 1000 MG PO (09:25)
[2024-05-15 12:00] VITALS: BP 118/85; PULSE 67; RESP 16; TEMP 36.4; O2SAT 96
--- NOTE | 2024-05-15 17:56 | P.DS_ITS ---
History of Present Illness History of Present Illness Chief complaint: Fell down stairs, back injury Narrative: Per history and physical: From night doctor: 68-year-old male history of paroxysmal atrial fibrillation, abdominal aortic aneurysm, chronic alcohol use, hypertension, dyslipidemia presents with complaint of hyponatremia found on outpatient labs and new urinary retention. 4 days ago he fell and sustained L1 compression fracture and L2 and L3 Rt transverse processes fractures and complains on difficulty ambulating with a cane, low back pain without radiculopathy and constipation. In the ED had transient PAF, hyponatremic, hypokalemic with elevated troponin. Additional information: The patient has a long history of alcohol use disorder. He drinks anywhere from 10-14 beers a day and has been doing so for 30+ years. He was alone over the weekend. He apparently fell outside and injured himself. His returned home after being gone for the weekend and found him to be somewhat disoriented. Upon arrival here he was found to have a rib and compression fracture. He was also found to have evidence of hyponatremia which is likely related to beer potomania. The patient also had AF with RVR which had improved without intervention. His was quite concerned about all of these symptoms of his core issue of alcohol use disorder. Does have a primary care doctor, Dr. Gallegos, in his seen Dr. Jimenez of Cardiology in the past. The patient has no periods of sobriety. He has never indicated that he was interested in not drinking. His 's primary generalized to see if there was anything to facilitate a change in his behavior. Discharge Providers Provider Date of admission: 05/11/24 23:42 Discharge Date: 05/15/24 Primary care physician: Lucas Duran DO Consults: 05/11/24 23:50 Consult to Orthopedic Surgery Stat Comment: Consulting Provider: Bruce Presley Reason for consultation: compression fx. transverse process fx. Lumbar spine Has provider been notified: Yes 05/12/24 15:18 Consult to Physical Therapy Evaluate & Treat Comment: TLSO brace when upright or walking, pt may refuse. Physician Instructions: Evaluate and Treat Discharge provider: Tiffanie Rosen MD Summary Hospital Course Discharge Diagnosis: 1. Alcohol dependence without withdrawal. 2. Hyponatremia, beer potomania. Present on admission and improving. 3. Rectal bleeding, resolved 4. Paroxysmal atrial fibrillation, improved 5. Urinary retention, likely secondary to BPH 6. Constipation, resolved 7. Severe compression deformity of the L1 vertebral body. 8. Mildly displaced fractures of the left 2nd and 3rd transverse processes. 9. Subacute appearing left lateral 9th rib fracture. 10. Hypokalemia, resolved Hospital Course: 68 yo male w/p afib, AAA, chronic alcohol dependence, HTN, dyslipidemia.? Fell 4 days prior to admission and sustained L1 compression fx, L2 and L3 transverse process fxs.? In ED had transient paroxysmal a fib, was hyponatremic, hypokalemic, and had an elevated troponin.? Also had subacute L lateral 9th rib fx. He was placed on oral diltiazem with good rate control. He was also initially placed on IV fluids and then subsequently was switched to salt tablets. His sodium gradually improved. Electrolyte derangements were treated and improved. He was prophylactically placed on scheduled low-dose Librium with good effect. He had no evidence of alcohol withdrawal during his hospitalization. He ultimately plan to follow-up with outpatient alcohol rehabilitation on the [facility] early next week. He is discharged with a short taper of low-dose Librium which will complete on 05/17/2024. He also had difficulties with urinary retention for which he was placed on tamsulosin. He is encouraged to have close follow-up with his PCP, to obtain follow-up sodium level later this coming week, as well as to follow-up on ongoing treatment for his paroxysmal atrial fibrillation and BPH/urinary retention. He is discharged in stable condition. Status at Discharge Cognitive/behavioral status at discharge: at baseline, oriented Functional status at discharge: independent ambulation Overall status at discharge: patient is progressing back to baseline Time Spent with Patient Time spent: Less than 30 minutes Exam Vital Signs (past 8 hours): - 05/15/24 12:00 Temperature 97.6 F Pulse Rate 67 Respiratory Rate 16 Blood Pressure 118/85 Pulse Oximetry 96 Oxygen Delivery Method Room Air Oxygen Flow Rate 0 Narrative Exam Narrative: GEN: Very pleasant middle-aged male, Alert and oriented x 3, NAD HEENT:NC, Face symmetric CHEST: Respiratory excursions symmetric, CTAB CV: RRR, no M/R/G ABD: Soft, NT/ND, BT present in all 4 quadrants, no organomegaly or masses EXTR: warm, well perfused, no C/C/E SKIN: warm and dry, no rash NEURO: Alert and oriented x 3, nonfocal Objective Labs 05/15/24 06:25 05/15/24 06:25 Labs: Laboratory Results - last 24 hr 05/15/24 06:25 WBC 9.0 RBC 4.26 L Hgb 14.0 Hct 40.5 L MCV 95.0 MCH 32.9 MCHC 34.6 RDW 13.5 Plt Count 386 Neut % (Auto) 64.2 Lymph % (Auto) 19.8 L [place] % (Auto) 10.3 Eos % (Auto) 5.1 H Baso % (Auto) 0.6 Neut # (Auto) 5800 Lymph # (Auto) 1800 [place] # (Auto) 900 Eos # (Auto) 500 H Baso # (Auto) 100 Sodium 131 L Potassium 4.1 Chloride 97 L Carbon Dioxide 29 BUN 10 Creatinine 0.68 Estimated GFR > 60 BUN/Creatinine Ratio 14.7 Glucose 97 Calcium 9.3 Magnesium 2.1 Total Bilirubin 0.5 AST 23 ALT 22 Alkaline Phosphatase 68 Total Protein 6.7 Albumin 3.7 Globulin 3.0 Albumin/Globulin Ratio 1.2 [facility] Medical History Benign essential HTN Family history of dementia Paroxysmal A-fib Alcohol abuse with alcohol-induced mood disorder IFG (impaired fasting glucose) Encounter for subsequent annual wellness visit (AWV) in Medicare patient Abdominal aortic aneurysm Subdural hematoma Major depression, single episode Hyperlipidemia Hepatitis A (~1965) Hemorrhoid (~1984) Grieving Syncope Tobacco dependence Surgical History Anesthesia History of rectal surgery (~1984) History of bunionectomy (~1974) History of tonsillectomy and adenoidectomy (~1965) Family History Father History of heart disease Mother Alzheimer's dementia Social History household members: spouse Smoking Status: Current every day smoker alcohol intake: current Discharge Plan Discharge Plan Patient Disposition: Home Provider Discharge Comment: 1) Take the salt tablets until gone - you were given a 7 day supply for a low sodium level when you were admitted 2) Please contact your PCP on Friday to get a f/u sodium level done next week 3) You have 2 new medications: Diltiazem (for heart rate control for atrial fibrillation, an abnormal heart rhythm) and tamsulosin (to make it easier to urinate due to prostate enlargement); please get refills from your PCP 4) You have been given a medication to help prevent alcohol withdrawal. You will take it twice a day today and tomorrow. You will have one final dose on Friday. Please do not take it if you choose to drink alcohol as it can make you very ill. 5) Return to the ED for inability to hold down food/fluids, uncontrolled symptoms of alcohol withdrawal, or confusion Discharge orders & Medications Prescriptions: New diltiazem HCl 120 mg Capsule,Extended Release 24hr 120 mg PO DAILY Qty: 30 0RF sodium chloride 1,000 mg Tablet,Soluble 1,000 mg PO BID Qty: 14 0RF tamsulosin [Flomax] 0.4 mg Capsule 0.4 mg PO DAILY Qty: 30 0RF chlordiazepoxide HCl 10 mg capsule 10 mg PO BID Qty: 5 0RF Rx Instructions: Take 1 tab twice daily on 05/15 and 05/16 and once on 05/17 Continued losartan 50 mg tablet 50 mg PO DAILY Qty: 90 3RF atorvastatin [Lipitor] 40 mg tablet 40 mg PO BEDTIME Qty: 90 3RF fluoxetine [Prozac] 20 mg capsule 20 mg PO DAILY Qty: 90 3RF guaifenesin [Mucus Relief ER] 600 mg tablet extended release 12hr 600 mg PO DAILY fluticasone propionate [Flonase] 1 spray mucous membrane PRN PRN (Reason: Allergic Symptoms) aspirin [Adult Aspirin Regimen] 81 mg tablet,delayed release (DR/EC) 81 mg PO DAILY folic acid 1 mg Tablet 1 mg PO DAILY Qty: 30 0RF multivitamin with folic acid [Tab-A-Abraham] 400 mcg Tablet 1 tab PO DAILY Qty: 30 0RF thiamine mononitrate (vit B1) 100 mg Tablet 100 mg PO DAILY Qty: 30 0RF Claritin 10 mg tablet 10 mg PO DAILY chlorthalidone 25 mg tablet 12.5 mg PO DAILY Follow up/Referrals: Lucas Duran DO [Primary Care Provider] - Discharge Health Status Multidrug resistant organism: No MDRO Diet/Activity/Treatments Diet: Diet as Tolerated and Regular Activity: As tolerated Oxygen: N/A Visit Report/Discharge Packet Instructions: DI for Hyponatremia, DI for Drug or Alcohol Withdrawal Stand Alone Forms: Patient Portal/API, Stroke Signs & Symptoms Discharge Data Primary Care Provider: Lucas Duran
== END 2024-05-15 13:13 | disposition home or self-care (01) | DRG 641 ==
LOC: ED 20:17 → AC 23:51
PROVIDERS: Emergency Medicine; Family Medicine; Hospitalist; Admitting Provider Internal Medicine; Emergency Provider Emergency Medicine; PCP Family Medicine; Referring Provider Emergency Medicine; Visit Provider Internal Medicine
DX: E87.1 Hypo-osmolality and hyponatremia (principal); S22.32XA Fracture of one rib, left side, initial encounter for closed fracture; S32.029A Unspecified fracture of second lumbar vertebra, initial encounter for closed fracture; S32.039A Unspecified fracture of third lumbar vertebra, initial encounter for closed fracture; S32.018A Other fracture of first lumbar vertebra, initial encounter for closed fracture; K62.5 Hemorrhage of anus and rectum; N39.41 Urge incontinence; F17.200 Nicotine dependence, unspecified, uncomplicated; I48.0 Paroxysmal atrial fibrillation; R79.89 Other specified abnormal findings of blood chemistry; E87.6 Hypokalemia; E78.49 Other hyperlipidemia; I10 Essential (primary) hypertension; K59.00 Constipation, unspecified; F41.9 Anxiety disorder, unspecified; N40.1 Benign prostatic hyperplasia with lower urinary tract symptoms; R33.8 Other retention of urine; F10.20 Alcohol dependence, uncomplicated; F32.A Depression, unspecified; W10.2XXA Fall (on)(from) incline, initial encounter; Z86.79 Personal history of other diseases of the circulatory system
CPT/HCPCS: 36415; 36592; 51798; 71045; 71275; 72100; 74174; 80048; 80053; 80061; 81003; 82550; 83735; 83880; 84484; 85014; 85018; 85025; 85027; 93005; 93010; 93306; 97116; 97161; 97530; 97535; 99284; 99285; J1650; Q9967

== ENCOUNTER → 2024-05-25 10:35 | Outpatient (CLI) | payer MEDICARE, OTHER, SELFPAY ==
[2024-05-12 01:08] VITALS: BMI 26.6
[2024-05-25 11:37] LABS: BUN Creatinine Ratio 22.4 (6-22); Blood Urea Nitrogen 17 mg/dL (9-20); Calcium 9.9 mg/dL (8.4-10.2); Carbon Dioxide 26 mmol/L (22-32); Chloride 101 mmol/L (98-107); Estimated Glomerular Filt Rate > 60 mL/min (>60); Glucose 98 mg/dL (80-110); HEMOLYSIS < 15 (0-50); Potassium 4.8 mmol/L (3.4-5.1); Sodium 135 mmol/L (137-145)
[2024-05-25 12:01] LABS: Prostate Specific Antigen Scrn 7.24 ng/mL (0.1-4.0)
== END ==
PROVIDERS: PCP Family Medicine; Referring Provider Family Medicine; Visit Provider Family Medicine
DX: Z12.5 Encounter for screening for malignant neoplasm of prostate (principal); E87.1 Hypo-osmolality and hyponatremia
CPT/HCPCS: 36415; 80048; G0103

== ENCOUNTER → 2024-07-12 09:34 | Outpatient (CLI) | payer MEDICARE, OTHER, SELFPAY ==
[2024-05-12 01:08] VITALS: BMI 26.6
--- NOTE | 2024-07-12 09:37 | DI.NM.S_ITS ---
PROCEDURE: NM DARA PERF SPECT R&S PHARM Rest and pharmacological stress myocardial perfusion SPECT with gated imaging and ejection fraction RADIOPHARMACEUTICAL: 12.3 mCi Tc-99m tetrafosmin IV at rest and 25.9 mCi Tc-99m tetrafosmin IV at peak effect of pharmacological stress. [id number] was performed. INDICATIONS: PAROX AFIB TECHNIQUE: Radiopharmaceutical was injected at peak stress test, and also at rest. SPECT images were obtained. SPECT myocardial perfusion images were displayed in short axis, horizontal long axis, and vertical long axis views. Gated images were reviewed using Betab[employer] software. COMPARISON: None. CARDIAC STRESS: A pharmacologic stress test was performed under the supervision of an attending staff, using an infusion of regadenoson 0.4 mg IV. Hemodynamic data: There is normal blood pressure and heart rate response to pharmacologic stress. Symptoms: The patient denied anginal chest pain. EKG: No diagnostic changes of ischemia; no ectopy. FINDINGS: Raw data: There is good myocardial uptake of radiotracer. No significant motion artifacts. Wzbi-wl-[id number] ratio is 0.28 (normal is less than 0.38 for tetrafosmin tracer). Left ventricle function: Gated images demonstrate normal left ventricular wall thickening. No segmental wall motion abnormalities. No transient ischemic dilation; TID is 1.01 (normal less than 1.3). Left ventricle resting end diastolic volume is 113 mL. Left ventricle stress ejection fraction is 50%; normal range is above 45%. Myocardial perfusion: There is normal distribution of activity in the right and left ventricular myocardium. No fixed or reversible perfusion defects. IMPRESSION: Low risk study. No evidence of pharmacologic induced ischemia or scar. Normal LV size and function. Dictated by: Geno Perez D.O. on 07/12/2024 at 16:35 Approved by: Geno Perez D.O. on 07/12/2024 at 16:36
== END ==
PROVIDERS: PCP Family Medicine; Referring Provider Internal Medicine Cardiovascular Disease; Visit Provider Internal Medicine Cardiovascular Disease
DX: I48.0 Paroxysmal atrial fibrillation (principal); R79.89 Other specified abnormal findings of blood chemistry
CPT/HCPCS: 78452; 93017; A9502; J2785

== ENCOUNTER → 2024-07-22 13:53 | Outpatient (CLI) | payer MEDICARE, OTHER, SELFPAY ==
[2024-05-12 01:08] VITALS: BMI 26.6
[2024-07-22 16:17] LABS: Prostate Specific Antigen 4.62 ng/mL (0.10-4.00)
== END ==
LOC: LAB 13:54
PROVIDERS: PCP Family Medicine; Referring Provider Urology; Visit Provider Urology
DX: R97.20 Elevated prostate specific antigen [PSA] (principal); N40.1 Benign prostatic hyperplasia with lower urinary tract symptoms
CPT/HCPCS: 36415; 84153

== ENCOUNTER → 2024-08-07 14:41 | Outpatient (CLI) | payer MEDICARE, OTHER, SELFPAY ==
[2024-05-12 01:08] VITALS: BMI 26.6
--- NOTE | 2024-08-07 14:43 | DI.MRI.S_ITS ---
PROCEDURE: MR PELIS WO/W CON INDICATIONS: 68 y/o M w/ elevated PSA, palpable nodule TECHNIQUE: Coronal HASTE, axial T1 FSE with fat saturation, 3-plane nonbreath-hold T2 FSE. After the administration of contrast, dynamic axial, delayed axial and coronal VIBE or 2-D FLASH with fat saturation through the pelvis. Diffusion weighted imaging and ADC was performed. COMPARISON: None. FINDINGS: Image quality: Diffusion weighted and dynamic contrast enhanced images are diagnostic. Prostate: Gland size is 5.4 x 3.4 x 4.3 cm; ellipsoid gland volume is 41 mL. Prostate density: 0.10 Lesion 1: Location: Left posterior transition zone, mid gland to apex, on axial series 5, image 14 and coronal series 6, image 13. Size: 1.6 x 2.2 cm. T2W signal: Hypointense. Nonencapsulated period DWI signal: Markedly hyperintense. ADC signal: Markedly hypointense. Enhancement: Yes. Extracapsular extension: No. No neurovascular involvement. PI-RADS score: 5 Lesion 2: Location: Left medial peripheral zone, apex, on axial series 5, image 17 and sagittal series 7, image 14. Size: 1.5 x 1.0 cm. T2W signal: Hypointense. DWI signal: Markedly hyperintense. ADC signal: Markedly hypointense. Enhancement: Yes. Extracapsular extension: No. No neurovascular involvement. PI-RADS score: 5 Genitourinary system: Bladder wall thickness is normal. Distal ureters are non distended. Bowel and peritoneum: No pathologic free pelvic fluid. Inferior colon and small bowel loops are normal in caliber. Colonic diverticulosis without evidence of diverticulitis. Nodes and vessels: No pelvic or inguinal adenopathy by size criteria. Iliac vessels are normal in caliber. Soft tissues: No inguinal hernias. Bones: Marrow demonstrates normal overall signal, without lesions to suggest metastases. IMPRESSION: A couple of PI-RADS 5 lesions in the left inferior prostate, as detailed above. No pelvic lymphadenopathy by size criteria. No aggressive osseous abnormality. Dictated by: Giovanny Mock M.D. on 08/09/2024 at 11:28 Approved by: Giovanny Mock M.D. on 08/09/2024 at 11:40
== END ==
PROVIDERS: PCP Family Medicine; Referring Provider Urology; Visit Provider Urology
DX: N42.9 Disorder of prostate, unspecified (principal); R97.20 Elevated prostate specific antigen [PSA]; R39.89 Other symptoms and signs involving the genitourinary system; K57.90 Diverticulosis of intestine, part unspecified, without perforation or abscess without bleeding
CPT/HCPCS: 72197; A9579

== ENCOUNTER → 2024-08-31 11:26 | Outpatient (CLI) | payer MEDICARE, OTHER, SELFPAY ==
[2024-05-12 01:08] VITALS: BMI 26.6
[2024-08-31 12:27] LABS: BUN Creatinine Ratio 25.9 (6-22); Blood Urea Nitrogen 22 mg/dL (9-20); Calcium 9.6 mg/dL (8.4-10.2); Carbon Dioxide 27 mmol/L (22-32); Chloride 107 mmol/L (98-107); Estimated Glomerular Filt Rate > 60 mL/min (>60); Glucose 101 mg/dL (80-110); HEMOLYSIS < 15 (0-50); Potassium 4.6 mmol/L (3.4-5.1); Sodium 142 mmol/L (137-145)
[2024-08-31 13:06] LABS: Hemoglobin A1C% w Est Avg Glu 5.4 % (4.0-6.0)
== END ==
PROVIDERS: PCP Family Medicine; Referring Provider Family Medicine; Visit Provider Family Medicine
DX: R73.01 Impaired fasting glucose (principal); E87.1 Hypo-osmolality and hyponatremia; I48.0 Paroxysmal atrial fibrillation; F10.11 Alcohol abuse, in remission
CPT/HCPCS: 36415; 80048; 83036

== ENCOUNTER → 2024-11-12 08:56 | Outpatient (CLI) | payer MEDICARE, OTHER, SELFPAY ==
[2024-05-12 01:08] VITALS: BMI 26.6
--- NOTE | 2024-11-12 08:58 | DI.CT.S_ITS ---
PROCEDURE: CT CHEST ABD PEL W CON INDICATIONS: 69 y/o M w/ high-risk prostate cancer, eval for mets TECHNIQUE: After the administration of intravenous contrast, 5 mm thick sections acquired from the lung apices to the symphysis. 5 mm coronal and sagittal reformats were performed, with additional 7 mm MIP reformats through the lungs. For radiation dose reduction, the following was used: automated exposure control, adjustment of mA and/or kV according to patient size. COMPARISON: [facility], MR, MR PELVIS WO/W CON, 08/07/2024, 15:12. [facility], NM, NM BONE SCAN WHOLE BODY, 11/12/2024, 9:21. [facility], CT, CT ANGIO CHEST ABDOMEN PELVIS, 05/11/2024, 21:46. FINDINGS: Image quality: Excellent. CHEST: Lower Neck: No enlarged lymph nodes. Thyroid: No thyroid nodules which require sonographic follow up, per consensus guidelines. Axillae: No enlarged lymph nodes. Chest Wall: Unremarkable. Lungs and Pleura: No pneumothorax or pleural effusions. No consolidation or suspicious nodules. Heart: Heart size is normal. No pericardial effusion. Thoracic Vessels: The aorta and pulmonary arteries demonstrate normal size. Mediastinum and Roseanna: No enlarged lymph nodes. Esophagus: No wall thickening. No hiatal hernia. ABDOMEN: Liver: No solid mass. Gallbladder: No radiopaque gallstones or wall thickening. Biliary ducts: No biliary dilation. Pancreas: No ductal dilation. Spleen: Size is within normal limits. Adrenal Glands: No adrenal nodules. Kidneys and Ureters: No hydronephrosis. No solid mass. No complex renal cystic lesion which requires follow up. Stomach and Bowel: Normal colonic caliber, without significant wall thickening. Peritoneum: No abnormal intraperitoneal fluid. No free air. Ventral Wall: No significant ventral hernia. Note is made of a small 2 cm periumbilical fat hernia. Abdominal Nodes: No retroperitoneal or mesenteric adenopathy by size criteria. Vessels: Aorta and inferior vena cava are normal in size except for aneurysmal dilatation of the upper abdominal aorta at the level of the mid kidneys where the maximal dimension of the aorta measures 4.2 cm. PELVIS: Pelvic Organs: Unremarkable. Bladder: No bladder wall thickening, accounting for underdistention. Pelvic Nodes: No enlarged lymph nodes. Miscellaneous: No inguinal hernias are seen. Bones: No aggressive osseous abnormality. IMPRESSION: 1. Incidental note is made of a 4.2 cm maximal axial dimension mild fusiform upper abdominal aortic aneurysm. 2. Throughout the visualized chest abdomen and pelvis no primary or metastatic neoplasm is found. No definite acute disease. Dictated by: Sai Michelle M.D. on 11/12/2024 at 15:11 Approved by: Sai Michelle M.D. on 11/12/2024 at 15:19
--- NOTE | 2024-11-12 08:58 | DI.NM.S_ITS ---
PROCEDURE: NM BONE SCAN WHOLE BODY RADIOPHARMACEUTICAL: 22 mCi Tc-99m MDP IV. INDICATIONS: 69 y/o M w/ high-risk prostate cancer, eval for mets TECHNIQUE: Delayed whole-body scintigrams were obtained approximately 3-4 hours after intravenous injection of radiotracer. Anterior and posterior views were acquired from vertex to feet. Additional left and right oblique views of the pelvis were obtained. COMPARISON: Located [facility], CT, CT CHEST ABD PEL W CON, 11/12/2024, 10:12. FINDINGS: Increased activity within the L1 vertebral body consistent with severe compression deformity seen on same day CT. Activity in the lower cervical spine, may be degenerative in etiology. Mild heterogeneous activity throughout the spine is likely degenerative, of note involving the right L5 vertebral body, corresponding to prominent osteophytes. Additional areas of degenerative uptake involving the shoulders, wrists, knees and feet. Activity is noted within the anterior lower neck. No definite focal areas of uptake suspicious for osseous metastatic disease. IMPRESSION: No definite findings of osseous metastatic disease. Activity within the lower neck anteriorly is of uncertain etiology, no correlate is seen on CT chest. L1 vertebral body activity corresponds to severe compression of lower cervical spine activity is likely degenerative in etiology. Additional areas of degenerative activity as described above. Dictated by: Jonathan Stoner M.D. on 11/12/2024 at 15:14 Approved by: Jonathan Stoner M.D. on 11/12/2024 at 15:23
[2024-11-12 09:34] LABS: Estimated Glomerular Filt Rate > 60 mL/min (>60)
== END ==
PROVIDERS: PCP Family Medicine; Referring Provider Urology; Visit Provider Urology
DX: C61 Malignant neoplasm of prostate (principal); I71.40 Abdominal aortic aneurysm, without rupture, unspecified
CPT/HCPCS: 36415; 71260; 74177; 78306; 82565; A9503; Q9967

== ENCOUNTER → 2025-04-19 08:48 | Outpatient (CLI) | payer MEDICARE, OTHER, SELFPAY ==
[2025-01-12 10:00] VITALS: BMI 26.6
[2025-04-19 10:59] LABS: Prostate Specific Antigen 1.58 ng/mL (0.10-4.00)
== END ==
PROVIDERS: PCP Family Medicine; Referring Provider Family Medicine; Visit Provider Urology
DX: C61 Malignant neoplasm of prostate (principal)
CPT/HCPCS: 36415; 84153

== ENCOUNTER → 2025-07-19 10:51 | Outpatient (CLI) | payer MEDICARE, OTHER, SELFPAY ==
[2025-01-12 10:00] VITALS: BMI 26.6
[2025-07-19 12:34] LABS: Prostate Specific Antigen 0.114 ng/mL (0.10-4.00)
== END ==
PROVIDERS: PCP Family Medicine; Referring Provider Urology; Visit Provider Urology
DX: C61 Malignant neoplasm of prostate (principal)
CPT/HCPCS: 36415; 84153